=== PATIENT | female | born 1935 | race Caucasian/White ===

== ENCOUNTER 2016-10-14 13:24 | Emergency (ER) | payer OTHER ==
[2016-10-14 13:45] VITALS: BP 175/59; PULSE 79; TEMP 97.9; BMI 24.2
[2016-10-14] MEDS ORDERED: DIPHTH,PERTUSS(ACELL),TET 0.5 ML DISP.SYRIN IM ONE (13:45)
--- NOTE | 2016-10-14 14:16 | PDOC ---
History of Present Illness - General History Source: Patient Exam Limitations: No Limitations - History of Present Illness Initial Comments: 10/14/16 14:30 The patient is a 81 year old female, with a significant past medical history of osteoarthritis, asthma, who presents to the emergency department with a syncopal episode. Patient reports having an episode of diarrhea and after standing up, had a syncopal episode. Patient reports does not remembering this episode. She denies any dizziness and lightheadedness before or after the episode. She reports as a result having an abrasion on her forehead above her right eyebrow. She denies any complaints of pain. She denies fever, chills, headache and dizziness. She denies nausea, vomit, and constipation. She denies dysuria, frequency, urgency and hematuria. Not up-to-date on tetanus shot. Allergies: As per nursing notes. Social history: Nonsmoker. PCP: <Sidney Toscano - Last Filed: 10/14/16 14:30> <Aisha Sotelo - Last Filed: 10/14/16 16:16> - General History Source: Patient Exam Limitations: No Limitations <Janel Gee - Last Filed: 10/15/16 16:36> - General Chief Complaint: Syncope/Near Syncope Stated Complaint: FALL Time Seen by Provider: 10/14/16 13:44 Past History <Sidney Toscano - Last Filed: 10/14/16 14:30> <Aisha Sotelo - Last Filed: 10/14/16 16:16> - Past Medical History Other medical history: arthritis - Psycho/Social/Smoking Cessation Hx Suicidal Ideation: No Smoking History: Never smoked <Janel Gee - Last Filed: 10/15/16 16:36> - Past Medical History Allergies/Adverse Reactions: Allergies Allergy/AdvReac Type Severity Reaction Status Date / Time aspirin Allergy Severe Verified 10/14/16 13:45 ibuprofen [From Motrin] Allergy Severe Verified 10/14/16 13:45 Sulfa (Sulfonamide Allergy Severe Verified 10/14/16 14:21 Antibiotics) Home Medications: Ambulatory Orders Albuterol Sulfate [Proair Respiclick] 90 mcg IH ASDIR 10/14/16 Alprazolam [Xanax Xr] 0.5 mg PO BID 10/14/16 Buspirone HCl [Buspar -] 7.5 mg PO BID 10/14/16 Irbesartan 150 mg PO DAILY 10/14/16 Lidocaine 5% Patch [Lidoderm Patch -] 1 patch TP DAILY 10/14/16 Theophylline Anhydrous [Ryder-24] 300 mg PO DAILY 10/14/16 Review of Systems - Review of Systems Able to Perform ROS?: Yes Comments:: 10/14/16 14:20 GENERAL/CONSTITUTIONAL: No: fever, chills, weakness, loss of appetite. HEAD, EYES, EARS, NOSE AND THROAT: No: change in vision, ear pain, discharge, sore throat, throat swelling. CARDIOVASCULAR: No: chest pain, lightheadedness, palpitations, syncope RESPIRATORY: No: cough, shortness of breath, wheezing, hemoptysis, stridor. GASTROINTESTINAL: No: nausea, vomiting, abdominal cramping, rectal bleeding, constipation. GENITOURINARY: No: dysuria, hematuria, frequency, urgency, flank pain. MUSCULOSKELETAL: No: back pain, neck pain, joint pain, muscle swelling or pain SKIN : No: lesions, pallor, rash or easy bruising. NEUROLOGIC: Yes: syncope. No: headache, vertigo, paresthesias, weakness ENDOCRINE: No: unexplained weight gain or loss HEMATOLOGIC/LYMPHATIC: No: anemia, easy bleeding, swelling nodes. <Sidney Toscano - Last Filed: 10/14/16 14:30> *Physical Exam - Vital Signs Last Vital Signs Temp Pulse Resp BP Pulse Ox 97.9 F 79 18 175/59 100 10/14/16 13:41 10/14/16 13:41 10/14/16 13:41 10/14/16 13:41 10/14/16 14:14 - Physical Exam Comments: 10/14/16 14:30 GENERAL: The patient is in no acute distress. HEAD: 2.5cm laceration on her right eyelid. Bruising and hematoma beneath her right eye. EYES: PERRLA, EOMI, sclera anicteric, conjunctiva clear. ENT: Ears normal, nares patent, oropharynx clear without exudates. Moist mucous membranes. NECK: Normal range of motion, supple without lymphadenopathy, JVD, or masses. LUNGS: Breath sounds equal, clear to auscultation bilaterally. No wheezes, and no crackles. HEART: Regular rate and rhythm, normal S1 and S2 without murmur, rub or gallop. ABDOMEN: Soft, nontender, normoactive bowel sounds. No guarding, no rebound. No masses palpable. EXTREMITIES: LEFT knee pain. Normal range of motion, no edema. No clubbing or cyanosis. No erythema. NEUROLOGICAL: Cranial nerves II through XII grossly intact. Normal speech. No focal neurological deficits. MUSCULOSKELETAL: Back non-tender to palpation, no CVA tenderness SKIN: Warm, Dry, normal turgor, no rashes or lesions noted. <Sidney Toscano - Last Filed: 10/14/16 14:30> - Vital Signs Last Vital Signs Temp Pulse Resp BP Pulse Ox 97.9 F 79 18 175/59 100 10/14/16 13:41 10/14/16 13:41 10/14/16 13:41 10/14/16 13:41 10/14/16 14:14 <Aisha Sotelo - Last Filed: 10/14/16 16:16> - Vital Signs Last Vital Signs Temp Pulse Resp BP Pulse Ox 97.9 F 79 18 175/59 99 10/14/16 13:41 10/14/16 13:41 10/14/16 13:41 10/14/16 13:41 10/14/16 13:41 <Janel Gee - Last Filed: 10/15/16 16:36> Heart Score/ECG Review #1 ECG reviewed & interpreted by me at: 14:10 10/14/16 14:10 Twelve-lead EKG was performed and reviewed by me. There is normal sinus rhythm with a normal rate of 71bpm. The axis is normal. The intervals are normal - pr: 80bpm, QRS:88ms, QTc:423ms. There are no ST or T wave abnormalities. (+) PVC <aJnel Gee - Last Filed: 10/15/16 16:36> ED Treatment Course - LABORATORY CBC & Chemistry Diagram: 10/14/16 13:45 10/14/16 13:45 <Sidney Toscano - Last Filed: 10/14/16 14:30> - LABORATORY CBC & Chemistry Diagram: 10/14/16 13:45 10/14/16 13:45 - ADDITIONAL ORDERS Additional order review: Laboratory Results 10/14/16 10/14/16 10/14/16 13:45 13:45 13:45 INR 1.04 PTT (Actin FS) 30.5 Sodium 142 Potassium 3.5 Chloride 102 Carbon Dioxide 30 Anion Gap 10 BUN 15 Creatinine 0.6 Creat Clearance w eGFR > 60 Random Glucose 128 H Calcium 8.5 Magnesium 1.6 L Total Bilirubin 0.3 AST 11 L ALT 11 L Alkaline Phosphatase 81 Creatine Kinase 80 Troponin I < 0.02 Total Protein 6.4 Albumin 3.4 Blood Type O POSITIVE Antibody Screen Negative 10/14/16 13:45 RBC 4.03 MCV 90.0 MCHC 33.4 RDW 14.3 MPV 8.0 Neutrophils % 83.9 H Lymphocytes % 9.6 Monocytes % 4.9 Eosinophils % 1.1 Basophils % 0.5 - Medications Given in the ED: ED Medications Discontinued Medications Generic Name Dose Route Start Last Admin Trade Name Freq PRN Reason Stop Dose Admin Diphtheria/Tetanus/Acell Pertussis 0.5 ml 10/14/16 13:45 10/14/16 14:22 Boostrix - IM 10/14/16 13:46 0.5 ml .ONCE ONE Administration <Aisha Sotelo - Last Filed: 10/14/16 16:16> - LABORATORY CBC & Chemistry Diagram: 10/14/16 13:45 10/14/16 13:45 - RADIOLOGY Radiology Studies Ordered: Category Date Time Status HEAD CT WITHOUT CONTRAST [CT] Stat CT Scan 10/14/16 13:45 Ordered CHEST X-RAY PORTABLE* [RAD] Stat Radiology 10/14/16 13:45 Ordered <Janel Gee - Last Filed: 10/15/16 16:36> Medical Decision Making - Medical Decision Making 10/14/16 16:17 LACERATION REPAIR: Procedure was done under sterile procedure. The skin was prepped with Betadine and Saline. 2 cc of 2% lidocaine with sodium bicarbonate was injected subcutaneously for local anesthesia. Normal saline lavage was performed. Wound was thoroughly explored. Clean laceration. 5-0 Ethilon, simple interrupted sutures, x 2 were placed. Bacitracin and dry sterile dressing were applied. Patient was advised regarding signs and symptoms of infection that would indicate a need to see the doctor immediately, as well as instructions for suture removal. Procedure was done by Aisha Sotelo PA-C <Aisha Sotelo - Last Filed: 10/14/16 16:16> - Medical Decision Making This is an 81 yo F presenting to the ER s/p syncopal event The pt states that she had loose stools Stood up and got lightheaded and fell down She struck the right side of her face No LOC No amnesia Pt denies focal weakness and numbness 10/14/16 15:55 Laboratory Tests 10/14/16 10/14/16 13:45 13:45 WBC 7.9 Hgb 12.1 Hct 36.3 Plt Count 178 Neutrophils % 83.9 H Lymphocytes % 9.6 BUN 15 Creatinine 0.6 Random Glucose 128 H Creatine Kinase 80 Troponin I < 0.02 10/14/16 18:04 CT demonstrates: Right orbital floor, Right maxillary antrum fracture 10/14/16 18:[address] Fox at [facility]. He states patient should follow-up at the [facility] on Monday. He's requesting that she used his name of that he will be alerted. Will give patient a copy of her CT. Pt seen in the ER PMD Pt is refusing to stay for further evaluation of why she passed out Pt is very anxious even about waiting in the ER for evaluation Pt understands her injuries, given a copy of her results Clinical impression: Syncope, facial trauma, <Janel Gee - Last Filed: 10/15/16 16:36> *DC/Admit/Observation/Transfer - Attestations Scribe Attestion: 10/14/16 14:24 Documentation prepared by Sidney Toscano, acting as hospital medical biller for Janel Gee MD. <Sidney Toscano - Last Filed: 10/14/16 14:30> <Aisha Sotelo - Last Filed: 10/14/16 16:16> - Discharge Dispostion Admit: No <Janel Gee - Last Filed: 10/15/16 16:36> Diagnosis at time of Disposition: Syncope and collapse Fall Qualifiers: Encounter type: initial encounter Qualified Code(s): W19.XXXA - Unspecified fall, initial encounter Facial trauma Qualifiers: Encounter type: initial encounter Qualified Code(s): S09.93XA - Unspecified injury of face, initial encounter Orbital floor fracture Qualifiers: Encounter type: initial encounter - Discharge Dispostion Disposition: HOME Condition at time of disposition: Improved - Referrals Referrals: Pato Islas MD [Primary Care Provider] - - Patient Instructions Printed Discharge Instructions: DI for Closed Head Injury, DI for Syncope in Adults (Fainting), DI for Orbital Fracture Additional Instructions: Susan Thank you for coming in to the ER today You have sustained several facial fractures I spoke with Dr Gael Martinez You can see him at the [facility] on Tuesday 10/17 Please return to the ER for any other concerns or complaints Addendum entered and electronically signed by Janel Gee MD 10/15/16 16:38 : Progress Note - Progress Note Progress Note: Of note, pt has refused tetanus shot and po abx on discharge due to prior severe allergic reaction to Ibuprofen and her concern about anaphylaxis
[2016-10-14 14:19] LABS: BASOPHIL 0.5 % (0-2.0); EOSINOPHIL 1.1 % (0-4.5); MCH 30.1 pg (25.7-33.7); MCHC 33.4 g/dl (32.0-36.0); NEUTROPHILS 83.9 % (42.8-82.8); PLATELET COUNT 178 K/MM3 (134-434); RDW 14.3 % (11.6-15.6); WHITE BLOOD COUNT 7.9 K/mm3 (4.0-10.0)
[2016-10-14 14:32] LABS: INR 1.04 (0.82-1.09); PROTHROMBIN TIME (PATIENT) 11.4 SEC (9.98-11.88)
[2016-10-14 14:34] LABS: ACTIVATED PTT 30.5 SECONDS (26.9-34.4)
[2016-10-14 14:47] LABS: ALBUMIN 3.4 g/dl (3.4-5.0); ANION GAP 10 (8-16); BILIRUBIN,TOTAL 0.3 mg/dL (0.2-1.0); CALCIUM 8.5 mg/dL (8.5-10.1); CO2 30 mmol/L (21-32); CREATININE 0.6 mg/dL (0.55-1.02); GLUCOSE,RANDOM 128 mg/dL (74-106); MAGNESIUM 1.6 mg/dL (1.8-2.4); SGOT/AST 11 U/L (15-37); SGPT/ALT 11 U/L (12-78); TOT PROT 6.4 g/dl (6.4-8.2)
[2016-10-14 14:49] LABS: ALK PHOS 81 U/L (45-117); TROPONIN I < 0.02 ng/ml (0.00-0.05)
--- NOTE | 2016-10-14 15:44 | EKG ---
Test Reason : Blood Pressure : / mmHG Vent. Rate : 071 BPM Atrial Rate : 071 BPM P-R Int : 182 ms QRS Dur : 088 ms QT Int : 390 ms P-R-T Axes : 074 050 053 degrees QTc Int : 423 ms POOR DATA QUALITY, INTERPRETATION MAY BE ADVERSELY AFFECTED SINUS RHYTHM Confirmed by COLLEEN GUERRERO MD ([id number]) on 10/14/2016 3:44:03 PM Referred By: Confirmed By:COLLEEN GUERRERO MD
[2016-10-14] MEDS ORDERED: ALPRAZolam 0.25 MG TABLET PO ONE (17:24)
[2016-10-14] MEDS ORDERED: ALPRAZolam 0.25 MG TABLET ONE (17:37)
== END 2016-10-14 19:08 | disposition home or self-care (01) ==
LOC: JER 13:24
PROC: 0HQ1XZZ Repair Face Skin, External Approach (ICD-10-PCS; principal; 2016-10-14)
PROC: 3E0234Z Introduction of Serum, Toxoid and Vaccine into Muscle, Percutaneous Approach (ICD-10-PCS; 2016-10-14)
DX: R55 Syncope and collapse (principal); S09.93XA Unspecified injury of face, initial encounter; X58.XXXA Exposure to other specified factors, initial encounter; Y93.89 Activity, other specified; Y92.89 Other specified places as the place of occurrence of the external cause; J45.909 Unspecified asthma, uncomplicated; M19.90 Unspecified osteoarthritis, unspecified site
CPT/HCPCS: 12011-25; 36415; 70450-TC; 70480-TC; 71010-TC; 80053; 82550; 83735; 84484; 85025; 85610; 85730; 86850; 86900; 86901; 90471; 90715; 93005; 93010; 99283-25

== ENCOUNTER 2018-08-20 01:54 | Inpatient (IN) | payer OTHER ==
[2018-08-20 03:18] LABS: HEMATOCRIT 36.7 % (32.4-45.2); HEMOGLOBIN 12.9 GM/dL (10.7-15.3); MCH 29.7 pg (25.7-33.7); MCHC 35.2 g/dl (32.0-36.0); MEAN CELL VOLUME 84.3 fl (80-96); MEAN PLT VOLUME 8.7 fl (7.5-11.1); PLATELET COUNT 225 K/MM3 (134-434); RBC 4.35 M/mm3 (3.60-5.2); RDW 14.4 % (11.6-15.6); WHITE BLOOD COUNT 6.2 K/mm3 (4.0-10.0)
[2018-08-20] MEDS ORDERED: ACETAMINOPHEN 1000 MG/100 ML VIAL (NON FORMULARY) IVPB ONE ×2 (03:24→18:15)
--- NOTE | 2018-08-20 03:24 | PDOC ---
History of Present Illness - General Chief Complaint: Urinary Problem Stated Complaint: GENERALIZED PAIN History Source: Patient, Family Exam Limitations: No Limitations - History of Present Illness Initial Comments: 08/20/18 03:10 Patient is 83 year old female with h/o asthma, anxiety, arthritis, htn c/o generalized pain. Patient states she has been having pain for a long time coleman in the right shoulder. States has been using lidoderm patches for the pain but now not giving any relief. States Dr. Calabrese is her doctor but has not seen him in > 1.5 years when she felt a lump in her left breast. States she did not invite him back for a home visit because she thought that "the breast cancer would kill her, but she is still here". Also c/o foul smell to her urine and burning on urination. She has not eaten in 2 days. Denies fever, chills. Family states she never mentioned the mass to them, her only c/o was of pain. PMD: Dr. Calabrese PMHX: as above PSOCHX: lives with family ALL: ASA, motrin, sulfa GENERAL/CONSTITUTIONAL: [No fever or chills. (+() weakness. No weight change.] HEAD, EYES, EARS, NOSE AND THROAT: [No change in vision. No ear pain or discharge. No sore throat.] CARDIOVASCULAR: [No chest pain or shortness of breath.] RESPIRATORY: (+) cough, wheezing, or hemoptysis.] GASTROINTESTINAL: [No nausea, vomiting, diarrhea or constipation. No rectal bleeding.] GENITOURINARY: [No dysuria, frequency, or change in urination.] MUSCULOSKELETAL: (+) joint or muscle swelling or pain. (+) neck or back pain.] SKIN AND BREASTS: (+) rash or easy bruising.] NEUROLOGIC: [No headache, vertigo, loss of consciousness, or loss of sensation.] PSYCHIATRIC: (+) depression or anxiety.] ENDOCRINE: [No increased thirst. No abnormal weight change.] HEMATOLOGIC/LYMPHATIC: [No anemia, easy bleeding, or history of blood clots.] ALLERGIC/IMMUNOLOGIC: [No hives or skin allergy. No latex allergy.] GENERAL: [The patient is awake, alert, and fully oriented, in moderate distress. ] HEAD: [Normal with no signs of trauma.] EYES: [Pupils equal, round and reactive to light, extraocular movements intact, sclera anicteric, conjunctiva clear.] ENT: [Ears normal, nares patent, oropharynx clear without exudates. Moist mucous membranes.] NECK: [Normal range of motion, supple without lymphadenopathy, JVD, or masses.] LUNGS: [Breath sounds equal, clear to auscultation bilaterally. No wheezes, and no crackles.] HEART: [Regular rate and rhythm, normal S1 and S2 without murmur, rub.] ABDOMEN: [Soft, nontender, normoactive bowel sounds. No guarding, no rebound. No masses.] EXTREMITIES: decreased range of motion, generalized tenderness, no edema. No clubbing or cyanosis. No cords, erythema, (+) generalized tenderness.] NEUROLOGICAL: [Cranial nerves II through XII grossly intact. Normal speech, normal gait.] PSYCH: somber mood, crying during the evaluation, sad affect.] SKIN: [Warm, Dry, poor turgor, dry scaly rash on elbows, (+) mass to the left breast, nipple retraction and wrinkling, tenderness to palp Past History - Past Medical History Allergies/Adverse Reactions: Allergies Allergy/AdvReac Type Severity Reaction Status Date / Time aspirin Allergy Severe Verified 08/20/18 01:57 ibuprofen [From Motrin] Allergy Severe Verified 08/20/18 01:57 Sulfa (Sulfonamide Allergy Severe Verified 08/20/18 01:57 Antibiotics) Home Medications: Ambulatory Orders Albuterol Sulfate [Proair Respiclick] 90 mcg IH ASDIR 10/14/16 Alprazolam [Xanax Xr] 0.5 mg PO BID 10/14/16 Buspirone HCl [Buspar -] 7.5 mg PO BID 10/14/16 Irbesartan 150 mg PO DAILY 10/14/16 Lidocaine 5% Patch [Lidoderm Patch -] 1 patch TP DAILY 10/14/16 Theophylline Anhydrous [Ryder-24] 300 mg PO DAILY 10/14/16 - Suicide/Smoking/Psychosocial Hx Smoking History: Never smoked Have you smoked in the past 12 months: No Information on smoking cessation initiated: No Hx Alcohol Use: No Drug/Substance Use Hx: No *Physical Exam - Vital Signs Last Vital Signs Temp Pulse Resp BP Pulse Ox 97.8 F 102 H 18 154/80 97 08/20/18 02:00 08/20/18 02:00 08/20/18 02:00 08/20/18 02:00 08/20/18 02:00 Moderate Sedation - Procedure Monitoring Vital Signs: Procedure Monitoring Vital Signs Temperature 97.8 F 08/20/18 02:00 Pulse Rate 102 H 08/20/18 02:00 Respiratory Rate 18 08/20/18 02:00 Blood Pressure 154/80 08/20/18 02:00 O2 Sat by Pulse Oximetry (%) 97 08/20/18 02:00 ED Treatment Course - LABORATORY CBC & Chemistry Diagram: 08/20/18 03:03 08/20/18 03:03 - RADIOLOGY Radiology Studies Ordered: Category Date Time Status CHEST X-RAY PORTABLE* [RAD] Stat Radiology 08/20/18 02:25 Ordered RIBS-LEFT SIDE [RAD] Stat Radiology 08/20/18 02:26 Ordered SHOULDER-RIGHT [RAD] Stat Radiology 08/20/18 02:25 Ordered Medical Decision Making - Medical Decision Making 08/20/18 03:10 Patient is 83 year old female with h/o asthma, anxiety, arthritis, htn c/o generalized pain. Noted on exam left breast mass suspicious for CA possible with bone involvement. Pain on urination r/o uti labs, cxr, left ribs and right shoulder. pain meds. reassess 08/20/18 03:44 EKG A-Fib with RVR 114, with PAC, NAD this seem to be a new diagnoses ASA not given allergic 08/20/18 05:17 no acute finding on lab work case was d/w Dr. Luciano covering for Dr. Pato Islas. Recommend admit, consult surgery Dr. Smyth. *DC/Admit/Observation/Transfer Diagnosis at time of Disposition: New onset atrial fibrillation, Breast mass, Bone pain - Discharge Dispostion Condition at time of disposition: Stable Decision to Admit order: Yes - Referrals - Patient Instructions - Post Discharge Activity
[2018-08-20] MEDS ORDERED: ACETAMINOPHEN INJECTION 100 ML IVPB ONE (03:26)
[2018-08-20 03:32] LABS: INR 1.1 (0.83-1.09)
[2018-08-20 03:34] LABS: URINE APPEARANCE CLEAR; URINE BILIRUBIN NEGATIVE (<2.0 mg/dL); URINE COLOR LTYELLOW; URINE GLUCOSE (UA) NEGATIVE (NEGATIVE); URINE KETONE TRACE (NEGATIVE); URINE LEUK ESTERASE TRACE (NEGATIVE); URINE NITRITE NEGATIVE (NEGATIVE); URINE PROTEIN NEGATIVE (NEGATIVE); URINE UROBILINOGEN NEGATIVE mg/dL (0.2-1.0)
[2018-08-20 03:46] LABS: EPI CELLS RARE /HPF (FEW); URINE MUCUS RARE
[2018-08-20 03:53] LABS: ALBUMIN 3.5 g/dl (3.4-5.0); ALK PHOS 88 U/L (45-117); ANION GAP 8 MMOL/L (8-16); BILIRUBIN,TOTAL 0.7 mg/dL (0.2-1); BLOOD UREA NITROGEN 11 mg/dL (7-18); CALCIUM 8.5 mg/dL (8.5-10.1); CHLORIDE 103 mmol/L (98-107); CO2 26 mmol/L (21-32); CREATININE 0.5 mg/dL (0.55-1.3); GLUCOSE,RANDOM 124 mg/dL (74-106); POTASSIUM 4.6 mmol/L (3.5-5.1); SGOT/AST 29 U/L (15-37); SGPT/ALT 12 U/L (13-61); SODIUM 136 mmol/L (136-145); TOT PROT 7.2 g/dl (6.4-8.2)
--- NOTE | 2018-08-20 05:37 | PDOC ---
*Physical Exam - Vital Signs Last Vital Signs Temp Pulse Resp BP Pulse Ox 97.8 F 102 H 18 154/80 97 08/20/18 02:00 08/20/18 02:00 08/20/18 02:00 08/20/18 02:00 08/20/18 02:00 - Physical Exam Comments: 08/20/18 05:36 on exam awake alert dry mucous membranes. lungs clear bilaterally heart rrr no mrg. abd soft nd nt. ext wwp no edema. no calf tenderness. left breast with palp hard mass medial to areola, nipple inverted, scaling. deformed. ED Treatment Course - LABORATORY CBC & Chemistry Diagram: 08/20/18 03:03 08/20/18 03:03 - ADDITIONAL ORDERS Additional order review: Laboratory Results 08/20/18 08/20/18 08/20/18 03:22 03:03 03:03 PT with INR INR Sodium Potassium Chloride Carbon Dioxide Anion Gap BUN Creatinine Creat Clearance w eGFR Random Glucose Calcium Total Bilirubin AST ALT Alkaline Phosphatase Creatine Kinase 123 Troponin I < 0.02 Total Protein Albumin Urine Color Ltyellow Urine Appearance Clear Urine pH 6.0 Ur Specific [place] 1.010 Urine Protein Negative Urine Glucose (UA) Negative Urine Ketones Trace H Urine Blood 1+ H Urine Nitrite Negative Urine Bilirubin Negative Urine Urobilinogen Negative Ur Leukocyte Esterase Trace Urine WBC (Auto) 10 Urine RBC (Auto) 2 Ur Epithelial Cells Rare Urine Mucus Rare Blood Type Cancelled Antibody Screen Cancelled 08/20/18 08/20/18 03:03 03:03 PT with INR 13.00 INR 1.10 H Sodium 136 Potassium 4.6 Chloride 103 Carbon Dioxide 26 Anion Gap 8 BUN 11 Creatinine 0.5 L Creat Clearance w eGFR > 60 Random Glucose 124 H Calcium 8.5 Total Bilirubin 0.7 AST 29 ALT 12 L Alkaline Phosphatase 88 Creatine Kinase Troponin I Total Protein 7.2 Albumin 3.5 Urine Color Urine Appearance Urine pH Ur Specific [place] Urine Protein Urine Glucose (UA) Urine Ketones Urine Blood Urine Nitrite Urine Bilirubin Urine Urobilinogen Ur Leukocyte Esterase Urine WBC (Auto) Urine RBC (Auto) Ur Epithelial Cells Urine Mucus Blood Type Antibody Screen 08/20/18 03:03 RBC 4.35 MCV 84.3 MCHC 35.2 RDW 14.4 MPV 8.7 - Medications Given in the ED: ED Medications Discontinued Medications Generic Name Dose Route Start Last Admin Trade Name Freq PRN Reason Stop Dose Admin Acetaminophen 1,000 mg 08/20/18 03:24 08/20/18 03:29 Ofirmev Injection - IVPB 08/20/18 03:25 1,000 mg ONCE ONE Administration Medical Decision Making - Medical Decision Making 08/20/18 05:33 83 yo F h/o arthritis, htn anxiety here with c/o generalized bony pain. pt states she has had a left breast mass for one year which she did not tell anyone about. figured it was cancer and she would from it quickly so didn't tell anyone. tonight states he bony pain was so severe she couldn't get up. has pain in shoulders right greater than left, hips and legs. has n't had much appetitie for the last few days. no vomiting. no f/c no abd pain. left breast has been deformed. on exam awake alert dry mucous membranes. lungs clear bilaterally heart rrr no mrg. abd soft nd nt. ext wwp no edema. no calf tenderness. left breast with palp hard mass medial to areola, nipple inverted, scaling. deformed. differential breast ca, dehydration renal failure infection such as uti or pna, fracture. plan xray chest shoulder , pt will likley require pain medication admission for pain control work up of cancer. 08/30/18 09:54 pt seen in conjunction with EDWARD Marquez, agree with assessment and plan. *DC/Admit/Observation/Transfer Diagnosis at time of Disposition: New onset atrial fibrillation, Breast mass, Bone pain - Discharge Dispostion Disposition: HOME Condition at time of disposition: Stable - Referrals - Patient Instructions - Post Discharge Activity
[2018-08-20] MEDS ORDERED: FLU VACCINE QUAD 60 MCG/0.5 ML (MDV 18-19) IM ONE (08:40)
[2018-08-20] MEDS ORDERED: oxyCODONE HCL 5 MG TABLET PO PRN (09:37)
--- NOTE | 2018-08-20 13:05 | CONS ---
DATE OF CONSULTATION: 08/20/2018 REQUESTING PHYSICIAN: Pato Islas MD CARDIOLOGY CONSULTATION CHIEF COMPLAINT: 1. Severe right shoulder and l left lower extremity pain. 2. Atrial fibrillation. HISTORY OF PRESENT ILLNESS: The patient is an 83-year-old female with a longstanding history of bronchial asthma (childhood), history of hypertension, anxiety disorder and depression, history of intentional tremors involving both hands since childhood, and a history of osteoarthritis. The patient has been complaining of progressive and severe pain involving the right shoulder and also the left thigh, knee and calves starting about 1 to 2 months ago and states that she could not stand up for the past 2 days because of severe pain. The right shoulder is also extremely painful and the pain has at times caused nausea. There is no history of chest pain or discomfort either at rest or with exertion , no history of exertional dyspnea, paroxysmal nocturnal dyspnea or orthopnea reported. No history of palpitations, light-headedness, dizziness, presyncope or syncope. No history of diabetes mellitus, no history of heart murmur. PAST MEDICAL HISTORY: As mentioned in the history of present illness. History of chronic loose bowel movements since childhood. PAST SURGICAL HISTORY: History of stitches involving the right eyebrow. SOCIAL HISTORY: She is not . She has 2 sons. She stopped smoking at the age of 51, smoked from the age of 17 and smoked 1 pack of cigarettes per week. She has a social drink; denies excessive use of alcohol. FAMILY HISTORY: Father of tuberculosis in his 40s. Mother suddenly in her late 60s, she was asthmatic. She has 3 brothers and 3 sisters. Older brother committed suicide in his 40s, had depression. Second brother of ? carcinoma of the stomach at age 65. The third brother of carcinoma site uncertain in his mid to late 70s. Her older sister is alive and is 97 years of age and resides in a penitentiary facility. She has a younger sister who is 75 and she is estranged and does not know much about her health. A third sister of carcinoma, site uncertain in her early 70s. ALLERGIES: The patient had anaphylactic shock related to MOTRIN. She is allergic to SULFA, which causes a rash. CURRENT MEDICATIONS: Oxycodone 5 mg every 4 hours p.r.n. for pain. Prior to admission she was on the following medications: 1. Theophylline 300 mg p.o. daily. 2. Xanax 1 mg 1/2 tablet p.o. b.i.d. 3. BuSpar, dose is uncertain 1 p.o. daily. 4. Irbesartin, dose is uncertain 1 p.o. daily but states that she had reduced the dose against medical advice. 5. Lidocaine patch 12 hours on and 12 hours off. 6. ProAir 2 inhalations q.i.d. p.r.n. 7. Albuterol via nebulizer p.r.n. REVIEW OF SYSTEMS: Constitutional: History of chills, fever and night sweats. History of unintentional weight loss. HEENT: No history of headaches, diplopia or blurred vision. History of nasal polyps. No history of tinnitus or deafness. Cardiovascular: See history of present illness. Respiratory: No history of recent cough, expectoration or hemoptysis. No history of tuberculosis. See history of present illness. Gastrointestinal: Occasional nausea especially when she is hungry. No history of vomiting, melena or hematemesis. Occasional generalized abdominal pain, chronic loose bowel movements. History of decreased appetite. No history of early satiety reported. Neurologic: History of chronic intentional tremors involving both hands. No history of focal weakness. No history of seizures or syncope. No history of light-headedness or dizziness. Musculoskeletal: History of osteoarthritis, see history of present illness. Endocrine: No history of polyuria or polydipsia, no history of intolerance to cold or warmth weather. No known history of endocrine disorder. Hematologic: No history of anemia, ecchymosis or bleeding. Miscellaneous: The patient stated that she has had a left breast mass for the past 1-1/2 to 2 years and apparently has not mentioned it to anybody. PHYSICAL EXAMINATION: General: An 83-year-old female was in moderate distress due to pain involving the right shoulder and leg. There was no pallor, cyanosis, clubbing or jaundice. Vital Signs: Weight 165 pounds, blood pressure 134/69 mmHg, pulse 90 beats per minute and irregularly irregular, respirations 22 per minute, temperature 98.7 F , oxygen saturations were 94% on room air. Neck: Supple, no jugulovenous distension, carotids were 2+, upstrokes were normal, no bruits were heard and no thyromegaly was present. Heart: No heaves or thrills. PMI was in the 5th intercostal space, S1 was variable, S2 was normal, rate 1/6 a crescendo systolic murmur was heard at the apex, no diastolic murmur, rubs or gallops were heard. Lungs: Decreased breath sounds at the right base. Abdomen: Soft, scaphoid, no hepatosplenomegaly or palpable masses were felt. Bowel tones were present. No bruits were heard. Extremities: No calf tenderness or dependent edema. Jose sign was negative. There were deformities of the toes on both feet. Dorsalis pedis pulses were 2+, posterior tibial pulses were not palpable. Femoral pulses were 2+. LABORATORY DATA: WBC count 6200, hemoglobin 12.9 g/dL, platelet count 225,000. Sodium 136, potassium 4.6, chloride 103, CO2 mmol/L, BUN 11, creatinine 0.5 mg/ dL. Random glucose 125 mg/dL, calcium 8.5. Liver function tests were normal. CK 123, troponin less than 0.02. Total protime 7.2 g/dL. Albumin 3.5. X-ray of the chest: A single AP view of the chest reveals degenerative spine and shoulder changes appear clear, hyperaerated lungs, large heart, normal aorta and normal hilum. The angles are sharp and the soft tissues are intact. An acute process is not seen. Since October 14, 2016 there is no change of an adverse nature. ECG on August 15, 2018: Atrial fibrillation with rapid ventricular response, right axis deviation, occasional unifocal and single ventricular premature beats. Nonspecific ST and T-wave abnormalities. No previous ECGs available for comparison. IMPRESSION: 1. Atrial fibrillation with moderate to rapid ventricular response of indeterminate duration. 2. History of hypertension, currently normotensive. 3. Ventricular ectopic beats. 4. History of bronchial asthma currently in remission. 5. Pain involving right shoulder left lower extremity, etiology most probably related to arthritic pain. The possibility of metastatic disease needs to be excluded. 6. Left breast mass. 7. History of nasal polyps. 8. History of anxiety disorder/depression. 9. 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 RECOMMENDATIONS: 1. The patient was advised that she has atrial fibrillation and ideally should be on anticoagulation. The risks of atrial fibrillation were discussed and understood. She refused to consider the use of anticoagulation until she has spoken to her family and PCP. 2. Echocardiogram. 3. Repeat T3, T4 TSH. 4. Oncological consult is pending. 5. Consider adding beta blockers for control of ventricular response and may also benefit her intentional tremors. 6. Would suggest the resumption of her outpatient medications. I thank you for your referral. MISTY WOODARD M.D. [id number]
--- NOTE | 2018-08-20 13:10 | CONSULT ---
Consult Consult Specialty:: Hematology/Oncology Referred by:: ED Reason for Consultation:: Left breast mass - History of Present Illness Chief Complaint: right shoulder pain History of Present Illness: 83 yr old man with asthma, HTN brought in by her son for severe right shoulder pain for past 2-3 days progressively worsening. Since May she has been proressivly been getting weaker and unable to care for herself, her son had to move in to help her cook and clean. She has not left her apartment in years, used to walk with a walker but has largerly remained in bed for past few months. noticed a left breast mass in Jul 2016 but did not bring it to the attention of her physician, Dr. Islas or her family. She had recently watched a friend pass away from breast cancer and did not want to go through something similar. She wanted to be left alone to . Dr. Islas had been visiting her at home but since Jul 2016 she declined to be visited by him and has not had any physician visits since then. currently she is unsure of what she wants regarding the left breast mass, she knows it is her decision. she said she's "too old to have to tolerate anything. " PMhx: asthma, HTN, no previous hx of cancer, had a colonoscopy >10yrs ago and recalls that it was fine. Used to get mammograms in the past which were all neg , as per pt. 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 3 sisters: Rach- alive with dementia age 97, no hx of cancer. Natalia - from unknown cancer, cancer was dx as older adult and Estephania-alive but estranged 3 brothers: Diomedes from mesothelioma, exposed at work, Florencio - from mesothelioma, exposed at work, Weston - age 30's due to suicide from PTSD fom WWII 2 adult sons, older son Florencio is estranged with 4 healthy children one grandson with autism. younger son lives with her, has HTN. Pt is close with her Niece. Pt denies smoking, ETOH, illicit drug use. - History Source History Provided By: Patient Limitations to Obtaining History: No Limitations - Past Medical History ...: No - Alcohol/Substance Use Hx Alcohol Use: No - Smoking History Smoking history: Never smoked Have you smoked in the past 12 months: No Home Medications - Allergies Allergies/Adverse Reactions: Allergies Allergy/AdvReac Type Severity Reaction Status Date / Time aspirin Allergy Severe Verified 08/20/18 01:57 ibuprofen [From Motrin] Allergy Severe Verified 08/20/18 01:57 Sulfa (Sulfonamide Allergy Severe Verified 08/20/18 01:57 Antibiotics) - Home Medications Home Medications: Ambulatory Orders Albuterol Sulfate [Proair Respiclick] 90 mcg IH ASDIR 10/14/16 Alprazolam [Xanax Xr] 0.5 mg PO BID 10/14/16 Buspirone HCl [Buspar -] 7.5 mg PO BID 10/14/16 Irbesartan 150 mg PO DAILY 10/14/16 Lidocaine 5% Patch [Lidoderm Patch -] 1 patch TP DAILY 10/14/16 Theophylline Anhydrous [Ryder-24] 300 mg PO DAILY 10/14/16 Review of Systems - Review of Systems Constitutional: reports: No Symptoms Eyes: reports: No Symptoms HENT: reports: No Symptoms Physical Exam Vital Signs: Vital Signs Temperature 98.7 F 08/20/18 08:19 Pulse Rate 112 H 08/20/18 08:19 Respiratory Rate 22 H 08/20/18 08:19 Blood Pressure 134/69 08/20/18 08:19 O2 Sat by Pulse Oximetry (%) 94 L 08/20/18 09:19 Constitutional: Yes: No Distress, Calm Eyes: Yes: Conjunctiva Clear, EOM Intact, PERRL HENT: Yes: Atraumatic, Normocephalic Neck: Yes: Supple, Trachea Midline. No: Thyromegaly Cardiovascular: Yes: Pulse Irregular, S1, S2 Respiratory: Yes: Regular, CTA Bilaterally Gastrointestinal: Yes: Normal Bowel Sounds, Soft Breast(s): Yes: Left (deformed with firm nontender nonmobile mass superior to inverted nipple without discharge. skin is intact but dry and flaky around areola.), Right (no palpable masses), Dimpling, Mass Musculoskeletal: Yes: Joint Stiffness, Muscle Pain (decreased ROM in right shoulder due to pain. tender to palpapation in upper right arm. no erythema, no swelling. left thigh and left hip tender to palpation and decr ROM in b/l hips. FROM in left shoulder.) Extremities: Yes: Other (right shoulder and upper arm pain with movement and palpation. left hip and left thigh pain with movement and palpation. decr ROM at both locations. no swelling or erythema) Edema: No Peripheral Pulses WNL: Yes Integumentary: Yes: WNL. No: Bruising, Erythema, Petechiae Neurological: Yes: Alert, Oriented Labs: CBC, BMP 08/20/18 03:03 08/20/18 03:03 Assessment/Plan 83 yr old woman with asthma and HTN admitted for right shoulder pain and left breast mass. Pt with decreased ADL's. She was animated when discussing her family, especially her grandchildren and tearful when the discussion turned to investigating the breast mass. She is unsure how she wants to proceed as she may not want to undergo any treatment regardless of the diagnosis. She is considering how she wants to proceed. Problem List: right should pain left breast mass with palpable left axillary node Afib Plan: neck and right humerus CT scan to r/o fracture recommend breast biopsy, Dr. Wilson consulted, pt said she would consent to biopsy. will discuss it with her son and Dr. Islas bone scan for further evaluation of malignancy pain control afib pending cardiology consult
--- NOTE | 2018-08-20 14:38 | HP ---
DATE OF ADMISSION: DATE OF DICTATION: 08/20/2018 This is an 83-year-old female known to have osteoarthritis of the hip better than for a few years. Lives at home with her son. Was brought to the emergency room yesterday with complaints of severe pain right shoulder. She also has severe pain left hip. Also noted to have a mass left breast. So, got admitted with a diagnosis of possible breast cancer with bone metastasis. This morning, patient is complaining to me severe pain, right shoulder, and left hip. PAST MEDICAL HISTORY: Thirty years ago, she had cardiorespiratory arrest and was intubated, known to have bronchial asthma on Proventil pump p.r.n. at home. PHYSICAL EXAMINATION: General: Patient is awake, alert, oriented, distressed because of the pain. Vital Signs: BP 130/80, pulse 102, respirations 20, temperature 98. HEENT: Unremarkable. Neck: Supple. No JVD. Lungs: Clear. Breasts: Left breast there is a mass around the nipple area more towards the left upper outer quadrant. Heart: Sounds S1, S2 normal. No S3, S4. Abdomen: Soft, nontender. Extremities: Range of motion of right shoulder and left hip restricted because of the pain. Neurological: Examination grossly normal. IMPRESSION: 1. Cachexia 2. Difficult to thrive. 3. Breast mass. 4. Osteoarthritis. PLAN: Pain medications. Oncology consult, Dr. Figueroa. May start for nutrition. We will follow. BRET HASSAN M.D. [id number]
--- NOTE | 2018-08-20 15:42 | EKG ---
Test Reason : Blood Pressure : / mmHG Vent. Rate : 114 BPM Atrial Rate : 136 BPM P-R Int : 000 ms QRS Dur : 090 ms QT Int : 284 ms P-R-T Axes : 000 070 067 degrees QTc Int : 391 ms ATRIAL FIBRILLATION WITH RAPID VENTRICULAR RESPONSE WITH PREMATURE VENTRICULAR OR ABERRANTLY CONDUCTED COMPLEXES NONSPECIFIC ST ABNORMALITY ABNORMAL ECG WHEN COMPARED WITH ECG OF 14-OCT-2016 13:47, ATRIAL FIBRILLATION HAS REPLACED SINUS RHYTHM VENT. RATE HAS INCREASED BY 43 BPM Confirmed by VÍCTOR HINDS MD ([id number]) on 08/20/2018 3:41:56 PM Referred By: Confirmed By:VÍCTOR HINDS MD
--- NOTE | 2018-08-20 18:44 | PN ---
Teaching Attending Note Name of Resident: Precious Barron ATTENDING PHYSICIAN STATEMENT I saw and evaluated the patient. I reviewed the resident's note and discussed the case with the resident. I agree with the resident's findings and plan as documented. ASSESSMENT AND PLAN: 83 y/o patient presenting with rt. shoulder, neck pain. Noted to have left breast mass since 2016. HAs not sought medical attention. concern for metastatic disease will consult dr. cornelius for biopsy check CT left shoulder/neck check bone scan disucssed [facility] patient that metastatic breast cancer is potentially tereatable with hormonal agents if ER+ and urged her to follow through with our recommendations
[2018-08-21] MEDS: ACETAMINOPHEN 500 MG TABLET (FP) PO PRN ×2 (04:31→22:01)
--- NOTE | 2018-08-21 09:25 | PN ---
Progress Note, Physician Chief Complaint: shoulder pain better History of Present Illness: Dr Smyths cardiology consult and bhavik Carroll oncology consult appreciated - Current Medication List Current Medications: Active Medications Acetaminophen (Tylenol -) 500 mg PO Q6H PRN PRN Reason: FEVER/PAIN LEVEL 1-5 Last Admin: 08/21/18 04:31 Dose: 500 mg Oxycodone HCl (Roxicodone -) 5 mg PO Q4H PRN PRN Reason: PAIN LEVEL 6-10 - Objective Vital Signs: Vital Signs Temperature 98.0 F 08/21/18 04:54 Pulse Rate 106 H 08/21/18 04:54 Respiratory Rate 20 08/21/18 04:54 Blood Pressure 151/87 08/21/18 04:54 O2 Sat by Pulse Oximetry (%) 95 08/20/18 21:00 Constitutional: Yes: Mild Distress Eyes: Yes: WNL HENT: Yes: WNL Neck: Yes: WNL Cardiovascular: Yes: Pulse Irregular Respiratory: Yes: Regular Gastrointestinal: Yes: Normal Bowel Sounds ...Rectal Exam: Yes: Deferred Genitourinary: Yes: WNL Edema: No Neurological: Yes: Alert Psychiatric: Yes: Alert Labs: CBC, BMP 08/20/18 03:03 08/20/18 03:03 INR, PTT INR 1.10 (0.83-1.09) H 08/20/18 03:03 Assessment/Plan Breast biopsy Ortho consult Dr Morales
[2018-08-21] MEDS ORDERED: PT OWN MED DRAWER 7, Y5N ONE (10:30)
[2018-08-21] MEDS: LOSARTAN POTASSIUM 50 MG TABLET (FP) PO SCH (10:36)
[2018-08-21] MEDS: busPIRone HCL 10 MG TABLET (FP) PO SCH ×2 (10:36→22:01)
[2018-08-21] MEDS: THEOPHYLLINE ANHYDROUS 200 MG CAP.ER.24H PO SCH (10:37)
[2018-08-21] MEDS: ALPRAZolam 0.25 MG TABLET PO SCH ×2 (10:40→22:01)
--- NOTE | 2018-08-21 16:53 | PN ---
Progress Note (short form) - Note Progress Note: Pt seen and examined. She is an 83 year old female with c/o B/L hip and shoulder pain. The hips have hurt for many years, left usually worse than left, and the shoulders have hurt for 1 year. Denies distant or recent trauma. Her right shoulder is very stiff, her left shoulder is doing well, with good ROM and minimal pain. Her hips hurt with weight bearing. She has recently been diagnosed with Breast CA, currently undergoing work up. PE Left shoulder looks good, with good ROM, NVI, no pain. Right shoulder has little active ROM, very limited FF and Abd, grossly NVI. + crepitus Right and left hip both with little active ROM, + pain with motion, B/L LE grossly NVI Xrays B/L hips show severe B/L OA, left hip also with severe protrusio CT Scan Report Pending ; Right shoulder with severe OA Bone scan Report Pending ; increased uptake at B/L Glenohumeral joints Imp 83 year F with no recent h/o trauma with recent dx of Breast CA and severe pain and limited function of both hips (L more than R), and right shoulder. So far no obvious foci of breast mets in the hips, bone scan possibly suggestive of mets in the proximal humeri. Rec Will follow up tomorrow for radiologist report of bone scan. Pt, at the moment, is adamantly refusing surgery of any kind. WBAT, ROM as tolerated
--- NOTE | 2018-08-21 18:33 | PN ---
Progress Note, Physician Chief Complaint: Feels better - Current Medication List Current Medications: Active Medications Acetaminophen (Tylenol -) 500 mg PO Q6H PRN PRN Reason: FEVER/PAIN LEVEL 1-5 Last Admin: 08/21/18 04:31 Dose: 500 mg Alprazolam (Xanax -) 0.5 mg PO BID [facility] Last Admin: 08/21/18 10:40 Dose: 0.5 mg Buspirone HCl (Buspar -) 10 mg PO BID [facility] Last Admin: 08/21/18 10:36 Dose: 10 mg Losartan Potassium (Cozaar -) 50 mg PO DAILY [facility] Last Admin: 08/21/18 10:36 Dose: 50 mg Oxycodone HCl (Roxicodone -) 5 mg PO Q4H PRN PRN Reason: PAIN LEVEL 6-10 Theophylline (Ryder-24) 200 mg PO DAILY [facility] Last Admin: 08/21/18 10:37 Dose: 200 mg - Objective Vital Signs: Vital Signs Temperature 98.7 F 08/21/18 08:54 Pulse Rate 106 H 08/21/18 08:54 Respiratory Rate 20 08/21/18 12:54 Blood Pressure 147/92 08/21/18 08:54 O2 Sat by Pulse Oximetry (%) 95 08/21/18 09:00 Constitutional: Yes: No Distress Eyes: Yes: WNL HENT: Yes: WNL Neck: Yes: WNL Cardiovascular: Yes: WNL Respiratory: Yes: WNL Gastrointestinal: Yes: WNL ...Rectal Exam: Yes: WNL, Deferred Genitourinary: Yes: WNL Breast(s): Yes: WNL Musculoskeletal: Yes: Joint Stiffness Edema: No Psychiatric: Yes: Alert Labs: CBC, BMP 08/20/18 03:03 08/20/18 03:03 INR, PTT INR 1.10 (0.83-1.09) H 08/20/18 03:03 - ....Imaging Chest X-ray: Report Reviewed X-ray: Report Reviewed Cat Scan: Report Reviewed Ultrasound: Report Reviewed Assessment/Plan Dr Orellana consult appreciated
--- NOTE | 2018-08-21 18:47 | PN ---
Progress Note (short form) - Note Progress Note: 83 year old female admitted with h/o shoulder and hip pain found to have a left breast mass and atrial fib. with controlled ventricular response of indeterminate duration. Known case of hypertension, bronchial asthma, depression and anxiety disorder. No h/o of chest pain or discomfort, no SOB. Workup in progress regardng breast mass. Active Medications Acetaminophen (Tylenol -) 500 mg PO Q6H PRN PRN Reason: FEVER/PAIN LEVEL 1-5 Last Admin: 08/21/18 04:31 Dose: 500 mg Alprazolam (Xanax -) 0.5 mg PO BID [facility] Last Admin: 08/21/18 10:40 Dose: 0.5 mg Buspirone HCl (Buspar -) 10 mg PO BID [facility] Last Admin: 08/21/18 10:36 Dose: 10 mg Losartan Potassium (Cozaar -) 50 mg PO DAILY [facility] Last Admin: 08/21/18 10:36 Dose: 50 mg Oxycodone HCl (Roxicodone -) 5 mg PO Q4H PRN PRN Reason: PAIN LEVEL 6-10 Theophylline (Ryder-24) 200 mg PO DAILY [facility] Last Admin: 08/21/18 10:37 Dose: 200 mg Last Vital Signs Temp Pulse Resp BP Pulse Ox 98.7 F 106 irregular 20 147/92 95 08/21/18 08:54 08/21/18 08:54 08/21/18 12:54 08/21/18 08:54 08/21/18 09:00 NECK: supple, no JVD, carotids 2+. HEART: PMI in the 5th ICS, no heaves or thrills, S1 variable S2 normal, grade I/ systolic murmur, no gallops heard LUNGS: Clear on auscultation. ABDOMEN: Soft, nontender, no organomegaly or palpable mass. EXTREMITIES: No edema or calf tenderness. CBC, BMP 08/20/18 03:03 08/20/18 03:03 IMPRESSION: 1. Hypertension. 2. Atrial fibrillation with moderate to rapid response. 3. Left mass. 4. Depression and Anxiety disorder. 5. Bronchial disorder. RECOMMENDATIONS: 1. Anticoagulation, provided patient agrees to it and can be started on heparin till work up of breast is completed. 2. Echocardiogram.
--- NOTE | 2018-08-21 20:08 | PN ---
Progress Note (short form) - Note Progress Note: Consult Progress Note: Hematology-Oncology continues to complain of arm and hip pain. does not want to use oxycodone, only wants tylenol for pain. also c/o "warm urine." discussed obtaining biopsy with her sons and niece. denies chest pain, sob, cough, palpitations, diarrhea, fever, cough, abdominal pain. completed imaging studies today. Vital Signs Temperature 98.7 F 08/21/18 08:54 Pulse Rate 106 H 08/21/18 08:54 Respiratory Rate 20 08/21/18 12:54 Blood Pressure 147/92 08/21/18 08:54 O2 Sat by Pulse Oximetry (%) 95 08/21/18 09:00 PE: NAD, laying in bed irregular rhythm, regular rate, no mrg no oral lesions CTAB abd soft nontender/nondistended no LE edema right shoulder tender to palpation CBCD WBC 6.2 K/mm3 (4.0-10.0) 08/20/18 03:03 RBC 4.35 M/mm3 (3.60-5.2) 08/20/18 03:03 Hgb 12.9 GM/dL (10.7-15.3) 08/20/18 03:03 Hct 36.7 % (32.4-45.2) 08/20/18 03:03 MCV 84.3 fl (80-96) 08/20/18 03:03 MCHC 35.2 g/dl (32.0-36.0) 08/20/18 03:03 RDW 14.4 % (11.6-15.6) 08/20/18 03:03 Plt Count 225 K/MM3 (134-434) D 08/20/18 03:03 MPV 8.7 fl (7.5-11.1) 08/20/18 03:03 CMP Sodium 136 mmol/L (136-145) 08/20/18 03:03 Potassium 4.6 mmol/L (3.5-5.1) 08/20/18 03:03 Chloride 103 mmol/L (98-107) 08/20/18 03:03 Carbon Dioxide 26 mmol/L (21-32) 08/20/18 03:03 Anion Gap 8 MMOL/L (8-16) 08/20/18 03:03 BUN 11 mg/dL (7-18) 08/20/18 03:03 Creatinine 0.5 mg/dL (0.55-1.3) L 08/20/18 03:03 Creat Clearance w eGFR > 60 (>60) 08/20/18 03:03 Calcium 8.5 mg/dL (8.5-10.1) 08/20/18 03:03 Total Bilirubin 0.7 mg/dL (0.2-1) 08/20/18 03:03 AST 29 U/L (15-37) 08/20/18 03:03 ALT 12 U/L (13-61) L 08/20/18 03:03 Alkaline Phosphatase 88 U/L (45-117) 08/20/18 03:03 Total Protein 7.2 g/dl (6.4-8.2) 08/20/18 03:03 Albumin 3.5 g/dl (3.4-5.0) 08/20/18 03:03 83 yr old woman with newly diagnosed Afib, asthma, anxiety and breast mass admitted for right shoulder pain being further evaluated for breast mass and Afib. Problem list: Breast mass Afib A/P bone scan and imaging reveal joint pain likely degenerative in nature, no osteolytic lesions identified awaiting biopsy of breast mass for further evaluation Cardio recommends heparin AC for afib, pt wants to discuss it with Dr. Islas and her son before consenting to start AC
--- NOTE | 2018-08-21 20:28 | PN ---
Teaching Attending Note Name of Resident: Precious Barron ATTENDING PHYSICIAN STATEMENT I saw and evaluated the patient. I reviewed the resident's note and discussed the case with the resident. I agree with the resident's findings and plan as documented. SUBJECTIVE:Patient seen and examined Wants to discuss issues about a/c with Dr. Islas and son. Work up underway. Await breast biopsy. OBJECTIVE: ASSESSMENT AND PLAN:
[2018-08-22] MEDS: ACETAMINOPHEN 500 MG TABLET (FP) PO PRN ×2 (05:48→18:54)
[2018-08-22] MEDS ORDERED: PT OWN MED DRAWER 7, Y5N ONE (09:25)
--- NOTE | 2018-08-22 09:30 | PN ---
Progress Note, Physician Chief Complaint: feels better,slept well History of Present Illness: Case discussed with Dr Morales,advised THR Lt - Current Medication List Current Medications: Active Medications Acetaminophen (Tylenol -) 500 mg PO Q6H PRN PRN Reason: FEVER/PAIN LEVEL 1-5 Last Admin: 08/22/18 05:48 Dose: 500 mg Alprazolam (Xanax -) 0.5 mg PO BID [facility] Last Admin: 08/21/18 22:01 Dose: 0.5 mg Buspirone HCl (Buspar -) 10 mg PO BID [facility] Last Admin: 08/21/18 22:01 Dose: 10 mg Losartan Potassium (Cozaar -) 50 mg PO DAILY [facility] Last Admin: 08/21/18 10:36 Dose: 50 mg Oxycodone HCl (Roxicodone -) 5 mg PO Q4H PRN PRN Reason: PAIN LEVEL 6-10 Theophylline (Ryder-24) 200 mg PO DAILY [facility] Last Admin: 08/21/18 10:37 Dose: 200 mg - Objective Vital Signs: Vital Signs Temperature 97.8 F 08/22/18 05:00 Pulse Rate 99 H 08/22/18 05:00 Respiratory Rate 20 08/22/18 05:00 Blood Pressure 121/63 08/22/18 05:00 O2 Sat by Pulse Oximetry (%) 95 08/21/18 21:00 Constitutional: Yes: Anxious Eyes: Yes: WNL HENT: Yes: WNL Neck: Yes: WNL Cardiovascular: Yes: Regular Rate and Rhythm Respiratory: Yes: WNL Gastrointestinal: Yes: Normal Bowel Sounds ...Rectal Exam: Yes: Deferred Genitourinary: Yes: WNL Musculoskeletal: Yes: Joint Stiffness Edema: No Neurological: Yes: Alert Labs: CBC, BMP 08/20/18 03:03 08/20/18 03:03 INR, PTT INR 1.10 (0.83-1.09) H 08/20/18 03:03 Assessment/Plan Breast biopsy Will discuss with her regarding THR Lt
[2018-08-22] MEDS: LOSARTAN POTASSIUM 50 MG TABLET (FP) PO SCH (10:16)
[2018-08-22] MEDS: THEOPHYLLINE ANHYDROUS 200 MG CAP.ER.24H PO SCH (10:17)
[2018-08-22] MEDS: busPIRone HCL 10 MG TABLET (FP) PO SCH ×2 (10:17→21:51)
[2018-08-22] MEDS: ALPRAZolam 0.25 MG TABLET PO SCH ×2 (10:19→21:51)
[2018-08-22] MEDS: PSYLLIUM 5.85 GM PACKET PO SCH (10:19)
--- NOTE | 2018-08-22 10:21 | PN ---
Progress Note (short form) - Note Progress Note: 83 year old female admitted with history of shoulder and hip pain, found to have a left breast mass and atrial fibrillation with controlled ventricular response of indeterminate duration. Known case of hypertension, bronchial asthma , depression and anxiety disorder. Patient has periods of rapid ventricular response. She fell in the bathroom on the 08/20/18, and states that she did not listen to the nurses and got up and felt lightheaded. Apparently, there was not obvious injury. No history of chest pain or discomfort, no SOB. Workup in progress regarding breast mass. Active Medications Acetaminophen (Tylenol -) 500 mg PO Q6H PRN PRN Reason: FEVER/PAIN LEVEL 1-5 Last Admin: 08/21/18 04:31 Dose: 500 mg Alprazolam (Xanax -) 0.5 mg PO BID [facility] Last Admin: 08/21/18 10:40 Dose: 0.5 mg Buspirone HCl (Buspar -) 10 mg PO BID [facility] Last Admin: 08/21/18 10:36 Dose: 10 mg Losartan Potassium (Cozaar -) 50 mg PO DAILY [facility] Last Admin: 08/21/18 10:36 Dose: 50 mg Oxycodone HCl (Roxicodone -) 5 mg PO Q4H PRN PRN Reason: PAIN LEVEL 6-10 Theophylline (Ryder-24) 200 mg PO DAILY [facility] Last Admin: 08/21/18 10:37 Dose: 200 mg 83 year old female was in no acute distress, no pallor, cyanosis, clubbing or jaundice. Last Vital Signs Temp Pulse Resp BP Pulse Ox 97.8 F 99 Irregularly irregular 20 121/63 95 08/22/18 05:00 08/22/18 05:00 08/22/18 05:00 08/22/18 05:00 08/21/18 21:00 NECK: Supple, no JVD, carotids were 2+. HEART: PMI in the 5th ICS, no heaves or thrills, S1 variable S2 normal, grade I/ systolic murmur, no gallops heard LUNGS: Clear on auscultation. ABDOMEN: Soft, nontender, no organomegaly or palpable mass. EXTREMITIES: No edema or calf tenderness. CBC, BMP 08/20/18 03:03 08/20/18 03:03 IMPRESSION: 1. Atrial fibrillation with moderate to rapid response. 2. Hypertension. 3. Left mass. 4. Depression and Anxiety disorder. 5. Bronchial asthma. RECOMMENDATIONS: 1. Patient has not agreed to anticoagulation. It was discussed in the presence of her son. Indicaitons and potential complications were discussed and understood. She is aware of the risk thromboembolism. 2. Awaiting left breast biopsy. 3. Add Motoprolol succinate 12.5 mg by mouth daily and titrate as necessary. Documentation prepared by Fabi Arias, acting as a biomedical photographer for Guy Mejia MD.
[2018-08-22 10:35] VITALS: BMI 22.6
[2018-08-22] MEDS: metoPROLOL SUCCINATE 25 MG TAB.SR.24H (FP) PO SCH (10:49)
--- NOTE | 2018-08-22 18:57 | PN ---
Progress Note (short form) - Note Progress Note: Consult Progress Note: Hematology-Oncology feels improvement in her right shoulder pain, has been slowly exercising it. denies fevers, chest pain, sob, palpitations Vital Signs Temperature 98.7 F 08/21/18 08:54 Pulse Rate 106 H 08/21/18 08:54 Respiratory Rate 20 08/21/18 12:54 Blood Pressure 147/92 08/21/18 08:54 O2 Sat by Pulse Oximetry (%) 95 08/21/18 09:00 PE: NAD, laying in bed irregular rhythm, regular rate, no mrg no oral lesions CTAB abd soft nontender/nondistended no LE edema right shoulder tender to palpation, improved ROM CBCD WBC 6.2 K/mm3 (4.0-10.0) 08/20/18 03:03 RBC 4.35 M/mm3 (3.60-5.2) 08/20/18 03:03 Hgb 12.9 GM/dL (10.7-15.3) 08/20/18 03:03 Hct 36.7 % (32.4-45.2) 08/20/18 03:03 MCV 84.3 fl (80-96) 08/20/18 03:03 MCHC 35.2 g/dl (32.0-36.0) 08/20/18 03:03 RDW 14.4 % (11.6-15.6) 08/20/18 03:03 Plt Count 225 K/MM3 (134-434) D 08/20/18 03:03 MPV 8.7 fl (7.5-11.1) 08/20/18 03:03 CMP Sodium 136 mmol/L (136-145) 08/20/18 03:03 Potassium 4.6 mmol/L (3.5-5.1) 08/20/18 03:03 Chloride 103 mmol/L (98-107) 08/20/18 03:03 Carbon Dioxide 26 mmol/L (21-32) 08/20/18 03:03 Anion Gap 8 MMOL/L (8-16) 08/20/18 03:03 BUN 11 mg/dL (7-18) 08/20/18 03:03 Creatinine 0.5 mg/dL (0.55-1.3) L 08/20/18 03:03 Creat Clearance w eGFR > 60 (>60) 08/20/18 03:03 Calcium 8.5 mg/dL (8.5-10.1) 08/20/18 03:03 Total Bilirubin 0.7 mg/dL (0.2-1) 08/20/18 03:03 AST 29 U/L (15-37) 08/20/18 03:03 ALT 12 U/L (13-61) L 08/20/18 03:03 Alkaline Phosphatase 88 U/L (45-117) 08/20/18 03:03 Total Protein 7.2 g/dl (6.4-8.2) 08/20/18 03:03 Albumin 3.5 g/dl (3.4-5.0) 08/20/18 03:03 83 yr old woman with newly diagnosed Afib, asthma, anxiety and breast mass admitted for right shoulder pain being further evaluated for breast mass and Afib. Problem list: Breast mass Afib A/P bone scan and imaging reveal joint pain likely degenerative in nature, no osteolytic lesions identified. awaiting biopsy of breast mass by IR for further evaluation until biopsy, heparin AC for afib, pt wants to discuss it with Dr. Islas and her son before consenting to start AC. pt aware of the emboli risk
--- NOTE | 2018-08-23 07:30 | PN ---
Progress Note (short form) - Note Progress Note: Patient seen Now seems to not want to proceed with I.R. directed biopsy of breast. Had spoken with son last evening and he was in agreement as was the patient . Unclear why the change in direction?
--- NOTE | 2018-08-23 09:18 | PN ---
Progress Note, Physician Chief Complaint: Now patient agrees for breast biopsy - Current Medication List Current Medications: Active Medications Acetaminophen (Tylenol -) 500 mg PO Q6H PRN PRN Reason: FEVER/PAIN LEVEL 1-5 Last Admin: 08/22/18 18:54 Dose: 500 mg Alprazolam (Xanax -) 0.5 mg PO BID [facility] Last Admin: 08/22/18 21:51 Dose: 0.5 mg Buspirone HCl (Buspar -) 10 mg PO BID [facility] Last Admin: 08/22/18 21:51 Dose: 10 mg Losartan Potassium (Cozaar -) 50 mg PO DAILY [facility] Last Admin: 08/22/18 10:16 Dose: 50 mg Metoprolol Succinate (Toprol Xl -) 12.5 mg PO DAILY [facility] Last Admin: 08/22/18 10:49 Dose: 12.5 mg Oxycodone HCl (Roxicodone -) 5 mg PO Q4H PRN PRN Reason: PAIN LEVEL 6-10 Psyllium Hydrophilic Mucilloid (Metamucil (Sugar-Free) -) 5.85 gm PO DAILY [facility] Last Admin: 08/22/18 10:19 Dose: 5.85 gm Theophylline (Ryder-24) 200 mg PO DAILY [facility] Last Admin: 08/22/18 10:17 Dose: 200 mg - Objective Vital Signs: Vital Signs Temperature 97.7 F 08/23/18 06:00 Pulse Rate 95 H 08/23/18 06:00 Respiratory Rate 18 08/23/18 06:00 Blood Pressure 132/65 08/23/18 06:00 O2 Sat by Pulse Oximetry (%) 95 08/22/18 21:00 Constitutional: Yes: Anxious Eyes: Yes: WNL HENT: Yes: WNL Neck: Yes: WNL Cardiovascular: Yes: WNL Respiratory: Yes: WNL Gastrointestinal: Yes: WNL ...Rectal Exam: Yes: Deferred Genitourinary: Yes: WNL Musculoskeletal: Yes: Joint Stiffness Edema: No Neurological: Yes: Alert Psychiatric: Yes: Alert Labs: CBC, BMP 08/20/18 03:03 08/20/18 03:03 INR, PTT INR 1.10 (0.83-1.09) H 08/20/18 03:03 Assessment/Plan Breast biopsy today
[2018-08-23] MEDS ORDERED: PT OWN MED DRAWER 7, Y5N ONE (09:32)
[2018-08-23] MEDS: LOSARTAN POTASSIUM 50 MG TABLET (FP) PO SCH (09:40)
[2018-08-23] MEDS: metoPROLOL SUCCINATE 25 MG TAB.SR.24H (FP) PO SCH (09:40)
[2018-08-23] MEDS: ALPRAZolam 0.25 MG TABLET PO SCH ×2 (09:41→21:32)
[2018-08-23] MEDS: busPIRone HCL 10 MG TABLET (FP) PO SCH ×2 (09:41→21:32)
[2018-08-23] MEDS: THEOPHYLLINE ANHYDROUS 200 MG CAP.ER.24H PO SCH (09:41)
[2018-08-23] MEDS: PSYLLIUM 5.85 GM PACKET PO SCH ×2 (09:41→09:53)
--- NOTE | 2018-08-23 09:57 | PN ---
Progress Note (short form) - Note Progress Note: Pt seen and examined. She is considering a left THR. I recommended maximizing her P.T. now, and to consider a left THR as an out pt on an elective basis. Currently she is trying to ambulate with P.T., She can be WBAT, no specific restrictions. She can be DC'd from an orthopedic pov Follow up as an out pt
[2018-08-23] MEDS: ACETAMINOPHEN 500 MG TABLET (FP) PO PRN (14:45)
[2018-08-24 07:43] LABS: INR 1.05 (0.83-1.09); PROTHROMBIN TIME (PATIENT) 12.4 SEC (9.7-13.0)
[2018-08-24 07:46] LABS: ACTIVATED PTT 27.5 SECONDS (25.2-36.5)
--- NOTE | 2018-08-24 09:44 | PN ---
Progress Note, Physician History of Present Illness: Breast biopy being done - Current Medication List Current Medications: Active Medications Acetaminophen (Tylenol -) 500 mg PO Q6H PRN PRN Reason: FEVER/PAIN LEVEL 1-5 Last Admin: 08/23/18 14:45 Dose: 500 mg Alprazolam (Xanax -) 0.5 mg PO BID [facility] Last Admin: 08/23/18 21:32 Dose: 0.5 mg Buspirone HCl (Buspar -) 10 mg PO BID [facility] Last Admin: 08/23/18 21:32 Dose: 10 mg Losartan Potassium (Cozaar -) 50 mg PO DAILY [facility] Last Admin: 08/23/18 09:40 Dose: 50 mg Metoprolol Succinate (Toprol Xl -) 12.5 mg PO DAILY [facility] Last Admin: 08/23/18 09:40 Dose: 12.5 mg Psyllium Hydrophilic Mucilloid (Metamucil (Sugar-Free) -) 5.85 gm PO DAILY [facility] Last Admin: 08/23/18 09:53 Dose: Not Given Theophylline (Ryder-24) 200 mg PO DAILY [facility] Last Admin: 08/23/18 09:41 Dose: 200 mg - Objective Vital Signs: Vital Signs Temperature 98 F 08/24/18 05:00 Pulse Rate 99 H 08/24/18 05:00 Respiratory Rate 19 08/24/18 05:00 Blood Pressure 121/65 08/24/18 05:00 O2 Sat by Pulse Oximetry (%) 95 08/23/18 21:00 Constitutional: Yes: No Distress Eyes: Yes: WNL HENT: Yes: WNL Neck: Yes: WNL Cardiovascular: Yes: WNL Respiratory: Yes: WNL Gastrointestinal: Yes: WNL ...Rectal Exam: Yes: Deferred Genitourinary: Yes: WNL Breast(s): Yes: Other (Lt breast biopsy today) Labs: CBC, BMP 08/20/18 03:03 08/20/18 03:03 INR, PTT INR 1.05 (0.83-1.09) 08/24/18 05:30
[2018-08-24] MEDS ORDERED: PT OWN MED DRAWER 7, Y5N ONE (09:51)
[2018-08-24] MEDS: busPIRone HCL 10 MG TABLET (FP) PO SCH ×2 (11:49→22:28)
[2018-08-24] MEDS: metoPROLOL SUCCINATE 25 MG TAB.SR.24H (FP) PO SCH (11:50)
[2018-08-24] MEDS: LOSARTAN POTASSIUM 50 MG TABLET (FP) PO SCH (11:50)
[2018-08-24] MEDS: PSYLLIUM 5.85 GM PACKET PO SCH (11:51)
[2018-08-24] MEDS: THEOPHYLLINE ANHYDROUS 200 MG CAP.ER.24H PO SCH (11:53)
[2018-08-24] MEDS: ALPRAZolam 0.25 MG TABLET PO SCH ×2 (11:54→22:13)
[2018-08-24] MEDS: ACETAMINOPHEN 500 MG TABLET (FP) PO PRN ×2 (11:55→21:42)
--- NOTE | 2018-08-24 21:07 | PN ---
Progress Note (short form) - Note Progress Note: Patient seen and examined Feels well. Denies any complaints AFVSS Cor: RSR, No murmurs, No gallops Lungs: Clear to P&A Abd: Soft, Normal bowel sounds, No organomegaly Ext:No significant edema Labs//Meds reviewed a/P 83 y/o patient presenting with rt. shoulder, neck pain. Noted to have left breast mass since 2016. HAs not sought medical attention. s/p biopsy left breast mass/axillary node will need staging CT c/a/p will need close follow up in the office
[2018-08-25] MEDS: ACETAMINOPHEN 500 MG TABLET (FP) PO PRN (08:53)
[2018-08-25] MEDS ORDERED: PT OWN MED DRAWER 7, Y5N ONE (09:03)
--- NOTE | 2018-08-25 09:22 | DS ---
Physical Examination Vital Signs: Vital Signs Temperature 98.4 F 08/25/18 01:53 Pulse Rate 104 H 08/25/18 01:53 Respiratory Rate 20 08/25/18 01:53 Blood Pressure 120/64 08/25/18 01:53 O2 Sat by Pulse Oximetry (%) 94 L 08/24/18 21:00 Findings/Remarks: Admitted with Lhip and Rt shoulder pain Diagnosed to hae Lt breast mass Biopsy done ,to be followed by Dr Figueroa Ortho evaluated by Dr Morales may need THR lt Constitutional: Yes: Calm Eyes: Yes: WNL HENT: Yes: WNL Neck: Yes: WNL Cardiovascular: Yes: WNL Respiratory: Yes: WNL Gastrointestinal: Yes: WNL ...Rectal Exam: Yes: Deferred Breast(s): Yes: Left (No bleeding at biopy site) Peripheral Pulses WNL: Yes Neurological: Yes: Alert ...Motor Strength: WNL Psychiatric: Yes: Alert. No: WNL Labs: CBC, BMP 08/20/18 03:03 08/20/18 03:03 Discharge Summary Reason For Visit: BONE PAIN/NEW ONSET ATRIAL FIBRILATION Current Active Problems Bone pain (Acute) Breast mass (Acute) New onset atrial fibrillation (Acute) Condition: Stable - Instructions Referrals: Pato Islas MD [Primary Care Provider] - - Home Medications Comprehensive Discharge Medication List: Ambulatory Orders Albuterol Sulfate [Proair Respiclick] 90 mcg IH ASDIR 10/14/16 Alprazolam [Xanax Xr] 0.5 mg PO BID 10/14/16 Buspirone HCl [Buspar -] 7.5 mg PO BID 10/14/16 Irbesartan 150 mg PO DAILY 10/14/16 Lidocaine 5% Patch [Lidoderm Patch -] 1 patch TP DAILY 10/14/16 Theophylline Anhydrous [Ryder-24] 300 mg PO DAILY 10/14/16
[2018-08-25] MEDS: LOSARTAN POTASSIUM 50 MG TABLET (FP) PO SCH (09:52)
[2018-08-25] MEDS: metoPROLOL SUCCINATE 25 MG TAB.SR.24H (FP) PO SCH (09:52)
[2018-08-25] MEDS: busPIRone HCL 10 MG TABLET (FP) PO SCH (09:52)
[2018-08-25] MEDS: THEOPHYLLINE ANHYDROUS 200 MG CAP.ER.24H PO SCH (09:53)
[2018-08-25] MEDS: ALPRAZolam 0.25 MG TABLET PO SCH (09:54)
[2018-08-25] MEDS: PSYLLIUM 5.85 GM PACKET PO SCH (10:36)
[2018-08-25 10:37] VITALS: BP 124/74; PULSE 102; TEMP 98
--- NOTE | 2018-08-29 10:33 | PATH ---
Surgical Pathology Report Patient Name: [facility]. Rec. #: [id number] /Age/Gender: 1935 (Age: 83) / F Account: [id number] Location: 4 W TELEMETRY U Taken: 08/24/2018 Received: 08/24/2018 Reported: 08/29/2018 Physicians: Pato Islas M.D. Diego Figueroa M.D. Specimen(s) Received A: LEFT BREAST MASS 10-2:00 RA B: LEFT AXILLARY LYMPH NODE Clinical History Ultrasound findings: Highly suspicious/malignant Final Diagnosis A.SITE 1, LEFT BREAST MASS, 10 - 2:00, RA, BIOPSY: INVASIVE DUCTAL CARCINOMA, MODERATELY DIFFERENTIATED, MEASURING AT LEAST 1 CM IN GREATEST DIMENSION IN THIS MATERIAL. Results of Estrogen Receptor (ER) and Progesterone Receptor (NV) studies performed on block "A1" at [facility] are as follows: ER (clone [id number] mouse monoclonal antibody by [employer]): 100% nuclear staining with strong intensity (Positive). NV (clone16 mouse monoclonal antibody by [employer]): 0 nuclear staining (Negative). Positive and negative controls (internal if applicable) show appropriate results. Formalin fixation and cold ischemic times are within current ASCO/CAP recommendations for ER, NV and Her2 testing. Comment: Immunohistochemical stain performed and interpreted at [facility] show the tumor cells to be positive for E-cadherin, supports a ductal phenotype. Reports for Her 2 and Ki-67 to follow. B. SITE 2, LEFT AXILLARY LYMPH NODE, BIOPSY: CARCINOMA, MORPHOLOGICALLY SIMILAR TO SPECIMEN A, MEASURING AT LEAST 1.2 CM IN GREATEST DIMENSION IN THIS MATERIAL. SCANTY LYMPHOCYTES PRESENT. This case was discussed with Dr. Islas on 08/29/2018. Electronically Signed Trav Marquis M.D. Addendum Reported: 08/30/2018 Addendum Diagnosis Results of Her2 (IHC) & Ki-67 studies performed on block "A" at [place], [place] ([id number]) are as follows: Her2 IHC (EP3 from [employer], formerly known as [id number], using [employer] Polymer Refine detection kit): 0 (Negative). Ki-67: ~20% (Intermediate proliferative index). Positive and negative controls (internal if applicable) show appropriate results. Angela Adame M.D. Gross Description A. Received in formalin labeled "10-2:00 left breast," are 4 foote-yellow, cylindrical portions of fibroadipose tissue ranging from 0.5-1.7 cm in length and averaging 0.1 cm in diameter. The specimens are submitted in toto in one cassette. B. Received in formalin labeled "left breast axilla," is a 2.0 cm in length x 0.1 cm in diameter foote-yellow, cylindrical portion of fibroadipose tissue. The specimen is submitted in toto in one cassette. Time to formalin fixation: 2 minutes Total formalin fixation time: Approximately 8 hours. 08/24/201808/24/2018
== END 2018-08-25 10:57 | disposition home or self-care (01) | DRG 580 ==
LOC: JER 01:54 → JERBED 05:34 → J4W 08:20
PROVIDERS: ADMIT Internal Medicine; ATTEND Internal Medicine
PROC: 0HBU3ZX Excision of Left Breast, Percutaneous Approach, Diagnostic (ICD-10-PCS; principal; 2018-08-24)
PROC: 07B63ZX Excision of Left Axillary Lymphatic, Percutaneous Approach, Diagnostic (ICD-10-PCS; 2018-08-24)
DX: N63.0 Unspecified lump in unspecified breast (principal); R64 Cachexia; N63.20 Unspecified lump in the left breast, unspecified quadrant; I48.91 Unspecified atrial fibrillation; M19.011 Primary osteoarthritis, right shoulder; J45.909 Unspecified asthma, uncomplicated; I10 Essential (primary) hypertension; F41.9 Anxiety disorder, unspecified; M19.90 Unspecified osteoarthritis, unspecified site; M25.511 Pain in right shoulder; M16.0 Bilateral primary osteoarthritis of hip
CPT/HCPCS: 19083; 19084; 36415; 70450-TC; 71045-TC-FY; 71101-TC-LT-FY; 72125-TC; 73030-TC-RT-FY; 73200-TC-RT; 73502-TC-LT-FY; 73502-TC-RT; 76641-TC-LT; 78306-TC; 80053; 81003; 81015; 82550; 84484; 85027; 85384; 85610; 85730; 87086; 87899; 88305-TC; 93005; 93010; 97116-GP; 97162-GP; 99282-25; A4648; A9503; J0131

== ENCOUNTER 2018-09-02 00:21 | Emergency (ER) | payer OTHER ==
--- NOTE | 2018-09-02 01:57 | PDOC ---
History of Present Illness - General Chief Complaint: Injury Stated Complaint: FALL Time Seen by Provider: 09/02/18 01:56 History Source: Patient, Family - History of Present Illness Initial Comments: 09/02/18 20:01 Pt fell off the commode at home; lost balance and fell onto her left side; injured left hip and left wrist. SHe has known severe DJD of the left hip. Timing/Duration: momentarily Severity: mild Associated Symptoms: reports: denies symptoms Past History - Travel Traveled outside of the country in the last 30 days: No Close contact w/someone who was outside of country & ill: No - Past Medical History Allergies/Adverse Reactions: Allergies Allergy/AdvReac Type Severity Reaction Status Date / Time aspirin Allergy Severe Verified 09/02/18 03:14 ibuprofen [From Motrin] Allergy Severe Verified 09/02/18 03:14 Sulfa (Sulfonamide Allergy Severe Verified 09/02/18 03:14 Antibiotics) Home Medications: Ambulatory Orders Albuterol Sulfate [Proair Respiclick] 90 mcg IH ASDIR 10/14/16 Alprazolam [Xanax Xr] 0.5 mg PO BID 10/14/16 Buspirone HCl [Buspar -] 7.5 mg PO BID 10/14/16 Irbesartan 150 mg PO DAILY 10/14/16 Lidocaine 5% Patch [Lidoderm Patch -] 1 patch TP DAILY 10/14/16 Theophylline Anhydrous [Ryder-24] 300 mg PO DAILY 10/14/16 Anemia: No Asthma: Yes Cancer: No Cardiac Disorders: No CVA: No COPD: No CHF: No Dementia: No Diabetes: No GI Disorders: No Disorders: No HTN: No Hypercholesterolemia: No Liver Disease: No Seizures: No Thyroid Disease: No - Surgical History Abdominal Surgery: No Appendectomy: No Cardiac Surgery: No Cholecystectomy: No Lung Surgery: No Neurologic Surgery: No Orthopedic Surgery: No - Immunization History Td Vaccination: Yes TDAP Vaccination: Yes Immunization Up to Date: Yes - Suicide/Smoking/Psychosocial Hx Smoking History: Never smoked Have you smoked in the past 12 months: No Hx Alcohol Use: No Drug/Substance Use Hx: No Substance Use Type: None Hx Substance Use Treatment: No Review of Systems - Review of Systems Constitutional: Yes: Loss of Appetite. No: Symptoms Reported, See HPI, Chills, Diaphoresis, Fever, Malaise, Night Sweats, Weakness, Weight Stable, Unintentional Wgt. Loss, Unexplained wgt Loss, Other HEENTM: No: Symptoms Reported, See HPI, Eye Pain, Blurred Vision, Tearing, Recent change in vision, Double Vision, Cataracts, Ear Pain, Ocular Prothesis, Ear Discharge, Nose Pain, Nose Congestion, Tinnitus, Nose Bleeding, Hearing Loss , Throat Pain, Throat Swelling, Mouth Pain, Dental Problems, Difficulty Swallowing, Mouth Swelling, Other Respiratory: No: Symptoms reported, See HPI, Cough, Orthopnea, Shortness of Breath, SOB with Exertion, SOB at Rest, Stridor, Wheezing, Productive cough, Hemoptysis, Other Cardiac (ROS): No: Symptoms Reported, See HPI, Chest Pain, Edema, Irregular Heart Rate, Lightheadedness, Palpitations, Syncope, Chest Tightness, Other ABD/GI: No: Symptoms Reported, See HPI, Abdominal Distended, Abd. Pain w/ defecation, Blood Streaked Bowels, Constipated, Diarrhea, Difficulty Swallowing , Nausea, Poor Appetite, Poor Fluid Intake, Rectal Bleeding, Vomiting, Indigestion, Abdominal cramping, Tarry Stools, Other : No: Symptoms Reported, See HPI, Burning, Dysuria, Discharge, Frequency, Flank Pain, Hematuria, Incontinence, Pain, Urgency, Testicular Mass, Testicular Swelling, Lesions, Testicular Pain, Other Musculoskeletal: Yes: Joint Pain, Muscle Pain, Joint Stiffness. No: Symptoms Reported, See HPI, Back Pain, Gout, Joint Swelling, Muscle Weakness, Neck Pain, Other Integumentary: No: Symptoms Reported, See HPI, Bruising, Change in Color, Change in Hair/Nails, Dryness, Erythema, Flushing, Lesions, Lumps, Pallor, Pruritus, Rash, Sweating, Other Neurological: No: Symptoms reported, See HPI, Headache, Numbness, Paresthesia, Pre-Existing Deficit, Seizure, Tingling, Tremors, Weakness, Unsteady Gait, Ataxia, Dizziness, Other Psychiatric: No: Anxiety, Depression, Frequent Crying, Stressors, Sleep Pattern Change, Emotional Problems, Mood Swings, Change in Appetite, Other Endocrine: No: Symptoms Reported, See HPI, Excessive Sweating, Flushing, Intolerance to Cold, Intolerance to Heat, Increased Hunger, Increased Thirst, Increased Urine, Unexplained Weight Gain, Unexplained Weight Loss, Change in Weight, Other Hematologic/Lymphatic: No: Symptoms Reported, See HPI, Anemia, Blood Clots, Easy Bleeding, Easy Bruising, Bleeding Diathesis, Lymph Node Abnormalities, Swollen Glands, Other *Physical Exam - Physical Exam General Appearance: Yes: Nourished, Appropriately Dressed, Mild Distress HEENT: positive: EOMI, BRUNO, Normal ENT Inspection, Normal Voice, Symmetrical, TMs Normal, Pharynx Normal Neck: positive: Trachea midline, Supple. negative: Tender Respiratory/Chest: positive: Lungs Clear, Normal Breath Sounds. negative: Chest Tender, Respiratory Distress Cardiovascular: positive: Regular Rhythm, Regular Rate, S1, S2 Gastrointestinal/Abdominal: positive: Flat Musculoskeletal: positive: Normal Inspection. negative: CVA Tenderness, CVA Tenderness (R) Extremity: positive: Normal Capillary Refill, Normal Inspection, Tender, Pelvis Stable. negative: Normal Range of Motion, Coldness, Swelling, Inflammation Integumentary: positive: Normal Color, Dry, Warm Neurologic: positive: diet consultant II-XII NML intact, Fully Oriented, Alert, Normal Mood/ Affect, Normal Response, Finger to Nose. negative: Motor Strength 5/5, Confused , Disoriented *DC/Admit/Observation/Transfer Diagnosis at time of Disposition: Degenerative joint disease of left hip - Discharge Dispostion Disposition: HOME - Referrals Referrals: Pato Islas MD [Primary Care Provider] - - Patient Instructions - Post Discharge Activity
[2018-09-02] MEDS ORDERED: LIDOCAINE 5% TOPICAL PATCH TP ONE (02:01)
[2018-09-02] MEDS ORDERED: ACETAMINOPHEN 500 MG TABLET (FP) PO ONE (02:59)
[2018-09-02] MEDS ORDERED: ACETAMINOPHEN INJECTION 100 ML IVPB ONE (03:04)
[2018-09-02] MEDS ORDERED: LIDOCAINE 5% TOPICAL PATCH ONE (03:05)
[2018-09-02 03:16] VITALS: BP 149/67; PULSE 82; TEMP 97.6; BMI 29.2
[2018-09-02] MEDS ORDERED: ACETAMINOPHEN 325 MG TABLET (FP) ONE (03:21)
[2018-09-02] MEDS ORDERED: LIDOCAINE PATCH REMOVAL MC SCH (22:00)
== END 2018-09-02 04:13 | disposition home or self-care (01) ==
LOC: JER 00:21
DX: S79.812A Other specified injuries of left hip, initial encounter (principal); M16.12 Unilateral primary osteoarthritis, left hip; W18.11XA Fall from or off toilet without subsequent striking against object, initial encounter; Y93.E8 Activity, other personal hygiene; Y92.031 Bathroom in apartment as the place of occurrence of the external cause
CPT/HCPCS: 71045-TC-FY; 73110-TC-LR-FY; 73523-TC-FY; 73552-TC-LT-FY; 99281-25

== ENCOUNTER 2018-11-19 05:43 | Inpatient (IN) | payer OTHER ==
--- NOTE | 2018-11-19 06:11 | PDOC ---
Attending Attestation - Resident Resident Name: Cathy Medellin - ED Attending Attestation I have performed the following: I have examined & evaluated the patient, The case was reviewed & discussed with the resident, I agree w/resident's findings & plan, Exceptions are as noted - HPI HPI: 83 yo PMH breast CA, anxiety, HTN, afib presenting with severe R arm/shoulder pain. Denies trauma. She has had the pain which is progressively worsening. Due to an allergy to NSAIDs and a concern about using opiate pain medication, she has been taking tylenol for the pain with very little relief. She is unable to move due to the pain. She has also been experiencing severe nausea and vomiting , now with dry heaves. She has been unable to tolerate anything PO. - Physicial Exam PE: GENERAL: Awake, alert, and fully oriented. Appears in obvious discomfort. Appears pale and chronically ill. HEAD: No signs of trauma EYES: PERRLA, EOMI, sclera anicteric, conjunctiva clear ENT: Auricles normal inspection, hearing grossly normal, nares patent, oropharynx clear without exudates. Dry mucosa NECK: Normal ROM, supple, no lymphadenopathy, JVD, or masses LUNGS: Breath sounds equal, clear to auscultation bilaterally. No wheezes, and no crackles HEART: Regular rate and rhythm, normal S1 and S2, no murmurs, rubs or gallops ABDOMEN: Soft, nontender, normoactive bowel sounds. No guarding, no rebound. No masses EXTREMITIES: Extreme tenderness to palpation of R shoulder, upper arm, and elbow , no deformity noted. ROM limited by pain. Remainder of extremities with normal range of motion, no edema. No clubbing or cyanosis. No cords, erythema, or tenderness NEUROLOGICAL: Cranial nerves II through XII grossly intact. Normal speech. Motor and sensation intact SKIN: Warm, Dry, normal turgor, no rashes or lesions noted. - Medical Decision Making Pt appears ill, dehydrated, and actively with dry heaves. Will obtain labs including mag and phos. Will XR the upper extremity to r/o pathological fracture. Likely admission for inability to tolerate PO. We discussed medication options, as opioids and NSAIDs do not cross-react. We discussed that in the short term, something like tramadol will give her relief while the etiology is addressed. She is amenable to it. Will give zofran for vomiting.
[2018-11-19] MEDS ORDERED: traMADol HCL 50 MG TABLET PO ONE ×3 (06:31→15:55)
[2018-11-19] MEDS ORDERED: ONDANSETRON 4 MG/2 ML VIAL IVPUSH ONE (06:31)
[2018-11-19] MEDS ORDERED: SODIUM CHLORIDE 500 ML IV STA (06:31)
[2018-11-19] MEDS ORDERED: ONDANSETRON 4 MG/2 ML VIAL ONE (06:38)
[2018-11-19] MEDS ORDERED: traMADol HCL 50 MG TABLET ONE ×3 (06:38→16:01)
--- NOTE | 2018-11-19 06:41 | PDOC ---
History of Present Illness - General Chief Complaint: Pain Stated Complaint: GENERALIZED PAIN Time Seen by Provider: 11/19/18 05:50 - History of Present Illness Initial Comments: 83yo F with PMH of breast CA, anxiety, HTN, Afib presenting with right upper extremity pain. Patient has had pain in this area previously, but now the pain is rated "off the charts." Her son is at the bedside providing collateral history. Patient was recently diagnosed with breast cancer late last year and had started hormone therapy called letrozole. The regimen is for 90 days, after which she will see her oncologist. One of the side effects of the medicine is bone pain and her son believes her right upper extremity pain has worsened as a result. They have not notified her physician regarding her severe arm pain. The pain is so severe, patient has lost her appetite and has not tolerated po intake for the past two days. She has had nausea and dry-heaving. Patient is allergic to motrine/alleve/advil and so will only take tylenol at home. She last took tylenol at 2am which does not relieve her pain whatsoever, but does allow her to rest. Patient is reluctant to take opioids because she does not want to "become a junkie." She has been evaluated by orthopedists in the past who her son reports have recommended eventual treatment with joint injections, however, her priority has been treating her breast cancer. Reports an episode around 3am when she slid off the bed but denies hitting her head or loss of consciousness. Endorses chills, but no fever measured at home. Patient reports having loose stools at baseline. No urinary symptoms. She has shortness of breath which she attributes to her asthma and is well-controlled with her inhalers. Denies chest pain or abdominal pain. PCP: Dr. Islas Oncologist: Dr. Figueroa Ortho: Denise/Andrew Past History - Past Medical History Allergies/Adverse Reactions: Allergies Allergy/AdvReac Type Severity Reaction Status Date / Time aspirin Allergy Severe Verified 11/19/18 05:58 ibuprofen [From Motrin] Allergy Severe Verified 11/19/18 05:58 Sulfa (Sulfonamide Allergy Severe Verified 11/19/18 05:58 Antibiotics) Home Medications: Ambulatory Orders Albuterol Sulfate [Proair Respiclick] 90 mcg IH ASDIR 10/14/16 Alprazolam [Xanax Xr] 0.5 mg PO BID 10/14/16 Buspirone HCl [Buspar -] 7.5 mg PO BID 10/14/16 Irbesartan 150 mg PO DAILY 10/14/16 Lidocaine 5% Patch [Lidoderm Patch -] 1 patch TP DAILY 10/14/16 Theophylline Anhydrous [Ryder-24] 300 mg PO DAILY 10/14/16 Anemia: No Asthma: Yes Cancer: No Cardiac Disorders: No CVA: No COPD: No CHF: No Dementia: No Diabetes: No GI Disorders: No Disorders: No HTN: No Hypercholesterolemia: No Liver Disease: No Seizures: No Thyroid Disease: No - Surgical History Abdominal Surgery: No Appendectomy: No Cardiac Surgery: No Cholecystectomy: No Lung Surgery: No Neurologic Surgery: No Orthopedic Surgery: No - Immunization History Td Vaccination: Yes TDAP Vaccination: Yes Immunization Up to Date: Yes - Suicide/Smoking/Psychosocial Hx Smoking History: Never smoked Have you smoked in the past 12 months: No Information on smoking cessation initiated: No Hx Alcohol Use: No Drug/Substance Use Hx: No Substance Use Type: None Hx Substance Use Treatment: No Review of Systems - Review of Systems Comments:: Constitutional: no fever, +chills HEENT: no throat pain, no dysphagia Cardiovascular: no chest pain, no palpitations Respiratory: no cough, +shortness of breath Gastrointestinal: no abdominal pain, +nausea Genitourinary: no dysuria, no frequency Musculoskeletal: +R. arm pain, +R. shoulder pain Skin: no rash, no itching Neurologic: no headache, no dizziness *Physical Exam - Vital Signs Last Vital Signs Temp Pulse Resp BP Pulse Ox 98.1 F 78 18 151/98 97 11/19/18 05:58 11/19/18 05:58 11/19/18 05:58 11/19/18 05:58 11/19/18 05:58 - Physical Exam Comments: General: Awake, alert, and fully oriented, anxious-appearing Head: No signs of trauma Eyes: EOMI, sclera anicteric ENT: Dry mucus membranes Neck: Normal ROM, supple Lungs: Lungs clear, Normal breath sounds Cardio: Tachycardic, irregular rhythm, S1 and S2 present Abdomen: Soft, nontender, nondistended, patient dry-heaving Extremities: Tender to palpation in R. shoulder, exam for ROM limited by pain; No L. shoulder pain, distal pulses present SKIN: Warm, Dry, normal turgor Neurologic: Cranial nerves II through XII grossly intact. Normal speech Moderate Sedation - Procedure Monitoring Vital Signs: Procedure Monitoring Vital Signs Temperature 98.1 F 11/19/18 05:58 Pulse Rate 78 11/19/18 05:58 Respiratory Rate 18 11/19/18 05:58 Blood Pressure 151/98 11/19/18 05:58 O2 Sat by Pulse Oximetry (%) 97 11/19/18 05:58 ED Treatment Course - LABORATORY CBC & Chemistry Diagram: 11/19/18 06:35 11/19/18 06:35 - RADIOLOGY Radiology Studies Ordered: Category Date Time Status CHEST X-RAY PORTABLE* [RAD] Stat Radiology 11/19/18 06:30 Ordered CLAVICLE-RIGHT SIDE [RAD] Stat Radiology 11/19/18 06:32 Ordered ELBOW-RIGHT [RAD] Stat Radiology 11/19/18 06:32 Ordered FOREARM- RIGHT [RAD] Stat Radiology 11/19/18 06:32 Ordered HUMERUS-RIGHT [RAD] Stat Radiology 11/19/18 06:32 Ordered SHOULDER-RIGHT [RAD] Stat Radiology 11/19/18 06:32 Ordered WRIST W/HAND-RIGHT* [RAD] Stat Radiology 11/19/18 06:32 Ordered Medical Decision Making - Medical Decision Making 83yo F with PMH of breast CA, anxiety, HTN, Afib presenting with right upper extremity pain. DDX including but not limited to osteoarthritis, bone pain secondary to cancer/ medication adverse affect CBC, CMP, Mag, Phos, Tpn, Coags, UA (to assess for ketones), UCx EKG, CXR Radiographs of RUE to r/o fracture 500cc NS 4mg Zofran Tramadol 50 mg EKG: rate 115, QTc 467, Afib with RVR Home dose of Metoprolol 25 ordered for Afib with RVR Likely admission for pain management 11/19/18 06:51 Patient signed out to day team 11/19/18 07:05 *DC/Admit/Observation/Transfer Diagnosis at time of Disposition: Atrial fibrillation with RVR - Discharge Dispostion Condition at time of disposition: Fair - Referrals - Patient Instructions - Post Discharge Activity
[2018-11-19 06:48] LABS: BASO % 0.3 % (0-2.0); HEMATOCRIT 33.9 % (32.4-45.2); HEMOGLOBIN 12.2 GM/dL (10.7-15.3); LYMPH % 22.4 % (8-40); MCH 31.9 pg (25.7-33.7); MCHC 35.9 g/dl (32.0-36.0); MEAN CELL VOLUME 88.8 fl (80-96); MEAN PLT VOLUME 8.1 fl (7.5-11.1); MONO % 9.9 % (3.8-10.2); NEUT % 66.4 % (42.8-82.8); PLATELET COUNT 154 K/MM3 (134-434); RBC 3.81 M/mm3 (3.60-5.2); RDW 14.4 % (11.6-15.6); WHITE BLOOD COUNT 2.4 K/mm3 (4.0-10.0)
[2018-11-19] MEDS ORDERED: metoPROLOL SUCCINATE 25 MG TAB.SR.24H (FP) PO ONE (07:08)
[2018-11-19 07:15] LABS: ALBUMIN 3.6 g/dl (3.4-5.0); ALK PHOS 80 U/L (45-117); ANION GAP 8 MMOL/L (8-16); BILIRUBIN,TOTAL 0.5 mg/dL (0.2-1); BLOOD UREA NITROGEN 19 mg/dL (7-18); CALCIUM 8.7 mg/dL (8.5-10.1); CHLORIDE 103 mmol/L (98-107); CO2 25 mmol/L (21-32); CREATININE 0.5 mg/dL (0.55-1.3); GLUCOSE,RANDOM 108 mg/dL (74-106); INR 1.05 (0.83-1.09); MAGNESIUM 1.7 mg/dL (1.8-2.4); PHOSPHOROUS 3.2 mg/dL (2.5-4.9); POTASSIUM 3.5 mmol/L (3.5-5.1); PROTHROMBIN TIME (PATIENT) 12.4 SEC (9.7-13.0); SGOT/AST 19 U/L (15-37); SGPT/ALT 14 U/L (13-61); SODIUM 136 mmol/L (136-145); TOT PROT 7.1 g/dl (6.4-8.2)
[2018-11-19 07:18] LABS: ACTIVATED PTT 29.1 SECONDS (25.2-36.5)
--- NOTE | 2018-11-19 07:24 | PDOC ---
*Physical Exam - Vital Signs Last Vital Signs Temp Pulse Resp BP Pulse Ox 98.1 F 78 18 151/98 97 11/19/18 05:58 11/19/18 05:58 11/19/18 05:58 11/19/18 05:58 11/19/18 05:58 - Physical Exam General Appearance: Yes: Appropriately Dressed, Thin HEENT: positive: Normal Voice, Hearing Grossly Normal Neck: positive: Trachea midline, Supple Respiratory/Chest: positive: Lungs Clear, Normal Breath Sounds Cardiovascular: positive: S1, S2, Tachycardia Extremity: positive: Other (RUE TTP, full ROM with pain) Integumentary: positive: Normal Color, Dry, Warm Neurologic: positive: Fully Oriented, Alert Heart Score/ECG Review - ECG Impressions Comment:: 11/19/18 08:54 AFib HR 118, no PATRIC/TWI ED Treatment Course - LABORATORY CBC & Chemistry Diagram: 11/19/18 06:35 11/19/18 06:35 - ADDITIONAL ORDERS Additional order review: Laboratory Results 11/19/18 11/19/18 06:35 06:35 PT with INR 12.40 INR 1.05 PTT (Actin FS) 29.1 Sodium 136 Potassium 3.5 Chloride 103 Carbon Dioxide 25 Anion Gap 8 BUN 19 H Creatinine 0.5 L Creat Clearance w eGFR 118.12 Random Glucose 108 H Calcium 8.7 Phosphorus 3.2 Magnesium 1.7 L Total Bilirubin 0.5 AST 19 ALT 14 Alkaline Phosphatase 80 Troponin I < 0.02 Total Protein 7.1 Albumin 3.6 - Medications Given in the ED: ED Medications Discontinued Medications Generic Name Dose Route Start Last Admin Trade Name Melissa PRN Reason Stop Dose Admin Ondansetron HCl 4 mg 11/19/18 06:31 11/19/18 06:44 Zofran Injection IVPUSH 11/19/18 06:32 4 mg ONCE ONE Administration Tramadol HCl 50 mg 11/19/18 06:31 11/19/18 07:07 Ultram - PO 11/19/18 06:32 50 mg ONCE ONE Administration Medical Decision Making - Medical Decision Making 11/19/18 07:22 Patient signed out by Dr. Medellin (Resident) and Dr. Hartman (Attending) 83 year old female w/RUE pain in AFib w/RVR @ presentation. H/o Breast CA currently on anti-estrogen Letrozole. Labs, RUE imaging pending. Patient reassessed @ bedside S/p Tramadol 20 minutes previous. Continues to c/o pain Emphasizes she does not wish to take any opioid medications as her son has a h/o heroin addiction and she [place] and is aware of the effects of drug addicition Will reassess in 45 minutes to evaluate for pain control 11/19/18 08:23 Patient reassessed @ bedside Pain improved with Tramadol Remains tachycardic - has not received BB, will administer BB, will place on shelter monitor 11/19/18 08:32 Patient on shelter monitor; NSR, Tachycardic @ 100's-120's Repeat EKG pending 11/19/18 08:35 My read of shoulder, humerus, elbow, wrist XR shows osteoporitic changes w/o fracture 11/19/18 08:42 Case d/w patient's PMD, will evaluate patient @ bedside 11/19/18 08:53 Repeat EKG shows AFib HR 118, patient recieved Toprol 10 minutes previous - close cardiac monitoring including pain control management 11/19/18 09:11 Dr. Islas @ bedside, agrees w/tele admission Will continue to monitor HR 11/19/18 09:59 HR 100's-120's NSR - cardiac monitoring, Dr. Islas aware. Other VSS Pain improved *DC/Admit/Observation/Transfer Diagnosis at time of Disposition: Atrial fibrillation with RVR - Discharge Dispostion Condition at time of disposition: Fair Decision to Admit order: Yes - Referrals - Patient Instructions - Post Discharge Activity
[2018-11-19] MEDS ORDERED: ALPRAZolam 0.25 MG TABLET PO SCH (11:30)
[2018-11-19] MEDS ORDERED: ALPRAZolam 0.25 MG TABLET ONE (12:09)
[2018-11-19 15:02] LABS: URINE APPEARANCE SLCLOUDY; URINE BILIRUBIN NEGATIVE (<2.0 mg/dL); URINE COLOR YELLOW; URINE GLUCOSE (UA) NEGATIVE (NEGATIVE); URINE KETONE TRACE (NEGATIVE); URINE LEUK ESTERASE 1+ (NEGATIVE); URINE NITRITE NEGATIVE (NEGATIVE); URINE PROTEIN 1+ (NEGATIVE); URINE UROBILINOGEN NEGATIVE mg/dL (0.2-1.0)
[2018-11-19 15:04] LABS: EPI CELLS RARE /HPF (FEW); URINE MUCUS RARE
[2018-11-19] MEDS ORDERED: ACETAMINOPHEN 325 MG TABLET (FP) PO PRN (18:51)
[2018-11-19] MEDS ORDERED: ALBUTEROL SO4 8 GM HFA INHALER IH PRN (18:53)
[2018-11-19] MEDS: traMADol HCL 50 MG TABLET PO PRN (20:41)
[2018-11-19] MEDS: busPIRone HCL 5 MG TABLET PO SCH (21:38)
--- NOTE | 2018-11-19 22:41 | CONSULT ---
Consult - text type - Consultation Consultation Note: 83yo F with PMH of breast CA, anxiety, HTN, Afib presenting with right upper extremity pain. Patient has had pain in this area previously. Patient was recently diagnosed with breast cancer late last year and had started letrozole. The pain is so severe, patient has lost her appetite and has not tolerated po intake for the past two days. Endorses chills, but no fever measured at home. Patient reports having loose stools at baseline. No urinary symptoms. She has shortness of breath which she attributes to her asthma and is well-controlled with her inhalers. Denies chest pain or abdominal pain. Allergies/Adverse Reactions: Allergies Allergy/AdvReac Type Severity Reaction Status Date / Time aspirin Allergy Severe Verified 11/19/18 05:58 ibuprofen [From Motrin] Allergy Severe Verified 11/19/18 05:58 Sulfa (Sulfonamide Allergy Severe Verified 11/19/18 05:58 Antibiotics) Home Medications: Ambulatory Orders Albuterol Sulfate [Proair Respiclick] 90 mcg IH ASDIR 10/14/16 Alprazolam [Xanax Xr] 0.5 mg PO BID 10/14/16 Buspirone HCl [Buspar -] 7.5 mg PO BID 10/14/16 Irbesartan 150 mg PO DAILY 10/14/16 Lidocaine 5% Patch [Lidoderm Patch -] 1 patch TP DAILY 10/14/16 Theophylline Anhydrous [Ryder-24] 300 mg PO DAILY 10/14/16 PMH Asthma: Yes - Suicide/Smoking/Psychosocial Hx Smoking History: Never smoked - Vital Signs Last Vital Signs Temp Pulse Resp BP Pulse Ox 98.1 F 78 18 151/98 97 11/19/18 05:58 11/19/18 05:58 11/19/18 05:58 11/19/18 05:58 11/19/18 05:58 Cor: RSR, No murmurs, No gallops Lungs: Clear to P&A Abd: Soft, Normal bowel sounds, No organomegaly Ext:No significant edema. rue limited range of motion left breast puckering/induration Abnormal Lab Results 11/19/18 11/19/18 11/19/18 06:35 06:35 14:45 WBC 2.4 L BUN 19 H Creatinine 0.5 L Random Glucose 108 H Magnesium 1.7 L Urine Protein 1+ H Urine Ketones Trace H Urine Blood 2+ H Ur Leukocyte Esterase 1+ H Active Medications Generic Name Dose Route Start Last Admin Trade Name Freq PRN Reason Stop Dose Admin Acetaminophen 650 mg 11/19/18 18:51 Tylenol - PO Q6H PRN PAIN Albuterol Sulfate 2 puff 11/19/18 18:53 Ventolin Hfa Inhaler - IH Q6H PRN SHORTNESS OF BREATH Alprazolam 0.5 mg 11/19/18 22:00 Xanax - PO HS PRN ANXIETY Buspirone HCl 7.5 mg 11/19/18 22:00 11/19/18 21:38 Buspar - PO 7.5 mg BID KELLY Administration Lidocaine 1 patch 11/20/18 10:00 Lidoderm Patch - TP DAILY KELLY Losartan Potassium 50 mg 11/20/18 10:00 Cozaar - PO DAILY KELLY Miscellaneous 1 each 11/20/18 22:00 Lidoderm Patch Removal MC DAILY@2200 KELLY Tramadol HCl 50 mg 11/19/18 20:12 11/19/18 20:41 Ultram - PO 50 mg Q6H PRN Administration PAIN LEVEL 4 - 6 a/p 83 y/o patient recently diagnosed left breast locally advanced breast cancer ER+ /NM+/Her2-negative,on letrozole comes in with right shoulder pain Xrays show severe DJD in shoulder joint ? usculoskeletal symptoms worsened with letrozole will hold letrozole -- ? switch to tamoxifen will request ortho consult. No obvious fx on xrays
--- NOTE | 2018-11-19 22:48 | EKG ---
Test Reason : Blood Pressure : / mmHG Vent. Rate : 115 BPM Atrial Rate : 220 BPM P-R Int : 000 ms QRS Dur : 082 ms QT Int : 338 ms P-R-T Axes : 000 068 055 degrees QTc Int : 467 ms ATRIAL FIBRILLATION WITH RAPID VENTRICULAR RESPONSE ABNORMAL ECG WHEN COMPARED WITH ECG OF 20-AUG-2018 02:41, NO SIGNIFICANT CHANGE WAS FOUND Confirmed by VÍCTOR HINDS MD ([id number]) on 11/19/2018 10:47:49 PM Referred By: Confirmed By:VÍCTOR HINDS MD
--- NOTE | 2018-11-19 22:48 | EKG ---
Test Reason : Blood Pressure : / mmHG Vent. Rate : 118 BPM Atrial Rate : 110 BPM P-R Int : 000 ms QRS Dur : 080 ms QT Int : 330 ms P-R-T Axes : 000 047 058 degrees QTc Int : 462 ms ATRIAL FIBRILLATION WITH RAPID VENTRICULAR RESPONSE NONSPECIFIC ST AND T WAVE ABNORMALITY ABNORMAL ECG WHEN COMPARED WITH ECG OF 19-NOV-2018 06:42, Confirmed by VÍTCOR HINDS MD ([id number]) on 11/19/2018 10:47:45 PM Referred By: Confirmed By:VÍCTOR HINDS MD
[2018-11-20 07:13] LABS: HEMATOCRIT 33.2 % (32.4-45.2); HEMOGLOBIN 11.5 GM/dL (10.7-15.3); MCH 31.3 pg (25.7-33.7); MCHC 34.7 g/dl (32.0-36.0); MEAN CELL VOLUME 90.2 fl (80-96); MEAN PLT VOLUME 8.1 fl (7.5-11.1); PLATELET COUNT 164 K/MM3 (134-434); RBC 3.68 M/mm3 (3.60-5.2); RDW 14.8 % (11.6-15.6); WHITE BLOOD COUNT 2.4 K/mm3 (4.0-10.0)
[2018-11-20 07:40] LABS: ALBUMIN 3.4 g/dl (3.4-5.0); ALK PHOS 71 U/L (45-117); ANION GAP 12 MMOL/L (8-16); BILIRUBIN,TOTAL 0.4 mg/dL (0.2-1); BLOOD UREA NITROGEN 17 mg/dL (7-18); CALCIUM 8.3 mg/dL (8.5-10.1); CHLORIDE 101 mmol/L (98-107); CO2 22 mmol/L (21-32); CREATININE 0.4 mg/dL (0.55-1.3); GLUCOSE,RANDOM 75 mg/dL (74-106); POTASSIUM 3.7 mmol/L (3.5-5.1); SGOT/AST 18 U/L (15-37); SGPT/ALT 11 U/L (13-61); SODIUM 135 mmol/L (136-145); TOT PROT 6.6 g/dl (6.4-8.2)
--- NOTE | 2018-11-20 08:54 | CON.ORTH ---
Consult Reason for Consultation:: right shoulder pain - Alcohol/Substance Use Hx Alcohol Use: No - Smoking History Smoking history: Never smoked Have you smoked in the past 12 months: No Home Medications - Allergies Allergies/Adverse Reactions: Allergies Allergy/AdvReac Type Severity Reaction Status Date / Time aspirin Allergy Severe Verified 11/19/18 05:58 ibuprofen [From Motrin] Allergy Severe Verified 11/19/18 05:58 Sulfa (Sulfonamide Allergy Severe Verified 11/19/18 05:58 Antibiotics) - Home Medications Home Medications: Ambulatory Orders Albuterol Sulfate [Proair Respiclick] 90 mcg IH ASDIR 10/14/16 Alprazolam [Xanax Xr] 0.5 mg PO BID 10/14/16 Buspirone HCl [Buspar -] 7.5 mg PO BID 10/14/16 Irbesartan 150 mg PO DAILY 10/14/16 Lidocaine 5% Patch [Lidoderm Patch -] 1 patch TP DAILY 10/14/16 Theophylline Anhydrous [Ryder-24] 300 mg PO DAILY 10/14/16 Physical Exam for Ortho Vital Signs: Vital Signs Temperature 98.2 F 11/20/18 05:15 Pulse Rate 103 H 11/20/18 05:15 Respiratory Rate 20 11/20/18 05:15 Blood Pressure 143/89 11/20/18 05:15 O2 Sat by Pulse Oximetry (%) 96 11/19/18 20:11 Labs: CBC, BMP 11/20/18 06:30 11/20/18 06:30 INR, PTT INR 1.05 (0.83-1.09) 11/19/18 06:35 - Upper Extremity Shoulder: Yes: Right, Limited ROM, Pain, Swelling, Tenderness, Other (+ ttp, + crepitus, limited active ROM, nvi) Imaging - Results X-ray: Report Reviewed, Image Reviewed Assessment/Plan 83yo F with PMH of breast CA, anxiety, HTN, Afib presenting with right upper extremity pain. Patient has had pain in this area previously, but now the pain is rated "off the charts." Her son is at the bedside providing collateral history. Patient was recently diagnosed with breast cancer late last year and had started hormone therapy called letrozole. The regimen is for 90 days, after which she will see her oncologist. One of the side effects of the medicine is bone pain and her son believes her right upper extremity pain has worsened as a result. They have not notified her physician regarding her severe arm pain. She denies any recent injury/trauma. 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 Walker
[2018-11-20] MEDS ORDERED: LIDOCAINE HCL 1%, 10 MG/ML (50 mL VIAL) SQ ONE ×2 (08:59→19:30)
[2018-11-20] MEDS ORDERED: methylPREDNISolone ACET (DEPO) 80 MG/1 ML VIAL IAR ONE (09:15)
[2018-11-20] MEDS ORDERED: PT OWN MED DRAWER 7, Y5N ONE ×2 (09:47→11:17)
[2018-11-20] MEDS: LOSARTAN POTASSIUM 50 MG TABLET (FP) PO SCH (09:52)
[2018-11-20] MEDS: LIDOCAINE 5% TOPICAL PATCH TP SCH (09:53)
[2018-11-20] MEDS: busPIRone HCL 5 MG TABLET PO SCH ×2 (09:53→21:59)
--- NOTE | 2018-11-20 10:32 | HP ---
DATE OF ADMISSION: 11/19/2018 DATE OF DICTATION: 11/20/2018 HISTORY: This is an 83-year-old female known to me for many years diagnosed to have atrial fibrillation, osteoarthritis, CA of the breast on letrozole now, came to the emergency room yesterday with severe intractable pain right shoulder. After getting the tramadol injection patient still had pain, so got admitted. Her atrial fibrillation also was worse with the pulse rate of 120. She was evaluated by Dr. Melchor and Orthopedic evaluation also done. This morning she is feeling better. PHYSICAL EXAMINATION: Vitals: Today blood pressure is 130/70, pulse 100, respirations 20, temperature 98. HEENT: Unremarkable. Neck: Supple, no JVD. Lungs: Clear. Heart: S1, S2 no normal, no S3, S4. Abdomen: Soft. Legs: No edema. Back: Range of motion of the right shoulder is restricted. Neurologic: Grossly normal. LABORATORY REPORTS: Her WBC is 2.4, hemoglobin 11.5, hematocrit 33. Chemistry: Sodium 135, potassium 3.7, BUN 17, creatinine 0.4, INR 1.05. Chest x-ray: Large heart. EKG: Atrial fibrillation. X-ray of the shoulder no fracture. Chest x-ray no infiltrate. PLAN: Continue the present medications, will follow. FINAL DIAGNOSES: 1. Cancer of the breast. 2. Intractable right shoulder pain. 3. Atrial fibrillation. BRET HASSAN M.D. [id number]
--- NOTE | 2018-11-20 16:16 | PN ---
Progress Note (short form) - Note Progress Note: Patient seen and examined Complains of pain and decrease ROM - right upper extremity Seen by ortho Plan for injection into right shoulder Last Vital Signs Temp Pulse Resp BP Pulse Ox 98.7 F 99 H 18 129/63 95 11/20/18 14:22 11/20/18 14:22 11/20/18 14:22 11/20/18 14:22 11/20/18 09:00 Breasts: right breast - no masses Left breas- retraction at 6:00 nipple area Cor: RSR, No murmurs, No gallops Lungs: Clear to P&A Abd: Soft, Normal bowel sounds, No organomegaly Ext:No significant edema Skin: No rashes, Integument intact Decrease ROM - RUE CBC, BMP 11/20/18 06:30 11/20/18 06:30 Current Medications Generic Name Dose Route Start Last Admin Trade Name Freq PRN Reason Stop Dose Admin Acetaminophen 650 mg 11/19/18 18:51 Tylenol - PO Q6H PRN PAIN Albuterol Sulfate 2 puff 11/19/18 18:53 Ventolin Hfa Inhaler - IH Q6H PRN SHORTNESS OF BREATH Alprazolam 0.5 mg 11/19/18 22:00 Xanax - PO HS PRN ANXIETY Buspirone HCl 7.5 mg 11/19/18 22:00 11/20/18 09:53 Buspar - PO 7.5 mg BID KELLY Administration Lidocaine 1 patch 11/20/18 10:00 11/20/18 09:53 Lidoderm Patch - TP 1 patch DAILY KELLY Administration Losartan Potassium 50 mg 11/20/18 10:00 11/20/18 09:52 Cozaar - PO 50 mg DAILY KELLY Administration Miscellaneous 1 each 11/20/18 22:00 Lidoderm Patch Removal MC DAILY@2200 KELLY Tramadol HCl 50 mg 11/19/18 20:12 11/19/18 20:41 Ultram - PO 50 mg Q6H PRN Administration PAIN LEVEL 4 - 6 Impression: ER+ locally advanced LEFT beast cancer Right shoulder pain without obvious mets on imaging ? exacerbation of pain secondary to letrozole It would seem unusual just to have one area of localized pain (right shoulder) with letrozole. Would have expected more diffuse pains, although one isolated area possible with hormones. ?? need for more sensitive imaging. Letrozole has been stopped and ortho plans for local injection. Will ask orth to comment on need for CT or MRI of right shoulder . Note leukopenia To recheck CBC.
[2018-11-20] MEDS: ALPRAZolam 0.25 MG TABLET PO PRN (21:58)
[2018-11-20] MEDS: LIDOCAINE PATCH REMOVAL MC SCH (21:59)
[2018-11-21 07:08] LABS: BASO % 0.4 % (0-2.0); EOS % 0.2 % (0-4.5); HEMATOCRIT 33.5 % (32.4-45.2); HEMOGLOBIN 11.7 GM/dL (10.7-15.3); LYMPH % 27.9 % (8-40); MCH 31.4 pg (25.7-33.7); MCHC 35.1 g/dl (32.0-36.0); MEAN CELL VOLUME 89.5 fl (80-96); MEAN PLT VOLUME 7.9 fl (7.5-11.1); MONO % 10.2 % (3.8-10.2); NEUT % 61.3 % (42.8-82.8); PLATELET COUNT 192 K/MM3 (134-434); RBC 3.74 M/mm3 (3.60-5.2); RDW 14.6 % (11.6-15.6); WHITE BLOOD COUNT 2.8 K/mm3 (4.0-10.0)
[2018-11-21] MEDS: traMADol HCL 50 MG TABLET PO PRN (10:01)
[2018-11-21] MEDS: LOSARTAN POTASSIUM 50 MG TABLET (FP) PO SCH (10:04)
[2018-11-21] MEDS: LIDOCAINE 5% TOPICAL PATCH TP SCH (10:04)
[2018-11-21] MEDS: busPIRone HCL 5 MG TABLET PO SCH ×2 (10:13→21:41)
--- NOTE | 2018-11-21 12:48 | PN ---
Progress Note (short form) - Note Progress Note: Ortho Pt seen and examined- c/o right shoulder pain
--- NOTE | 2018-11-21 12:51 | PN ---
Progress Note (short form) - Note Progress Note: Ortho Pt seen and examined- c/o right shoulder pain Laboratory Tests 11/21/18 06:10 WBC 2.8 L Hgb 11.7 Hct 33.5 Plt Count 192 + ttp, decr rom,nvi a/p Under sterile technique the left glenohumeral jt was injected lidocaine and depo -medrol, injection was tolerated well, no acute reactions Pt made aware injection will take 3-4 days even up to 1 week to take affect Ice ROM exercises ok to d/c from ortho pov f/u as outpt d/w Dr. Morales
--- NOTE | 2018-11-21 14:29 | PN ---
Progress Note, Physician Chief Complaint: Diarrhea History of Present Illness: Received shot Rt shoulder - Current Medication List Current Medications: Active Medications Acetaminophen (Tylenol -) 650 mg PO Q6H PRN PRN Reason: PAIN Albuterol Sulfate (Ventolin Hfa Inhaler -) 2 puff IH Q6H PRN PRN Reason: SHORTNESS OF BREATH Alprazolam (Xanax -) 0.5 mg PO HS PRN PRN Reason: ANXIETY Last Admin: 11/20/18 21:58 Dose: 0.5 mg Buspirone HCl (Buspar -) 7.5 mg PO BID [facility] Last Admin: 11/21/18 10:13 Dose: 7.5 mg Lidocaine (Lidoderm Patch -) 1 patch TP DAILY [facility] Last Admin: 11/21/18 10:04 Dose: 1 patch Losartan Potassium (Cozaar -) 50 mg PO DAILY [facility] Last Admin: 11/21/18 10:04 Dose: 50 mg Miscellaneous (Lidoderm Patch Removal) 1 each MC DAILY@2200 [facility] Last Admin: 11/20/18 21:59 Dose: 1 each Tramadol HCl (Ultram -) 50 mg PO Q6H PRN PRN Reason: PAIN LEVEL 4 - 6 Last Admin: 11/21/18 10:01 Dose: 50 mg - Objective Vital Signs: Vital Signs Temperature 98 F 11/21/18 10:14 Pulse Rate 106 H 11/21/18 10:14 Respiratory Rate 20 11/21/18 10:14 Blood Pressure 128/73 11/21/18 10:14 O2 Sat by Pulse Oximetry (%) 95 11/20/18 21:00 Constitutional: Yes: Mild Distress Eyes: Yes: WNL HENT: Yes: WNL Neck: Yes: WNL Cardiovascular: Yes: WNL Respiratory: Yes: WNL Gastrointestinal: Yes: WNL ...Rectal Exam: Yes: Deferred Genitourinary: Yes: WNL Integumentary: Yes: WNL Neurological: Yes: Alert Labs: CBC, BMP 11/21/18 06:10 11/20/18 06:30 INR, PTT INR 1.05 (0.83-1.09) 11/19/18 06:35 Assessment/Plan Kiopectate for diarrhea
[2018-11-21 14:59] VITALS: BMI 19.7
--- NOTE | 2018-11-21 19:17 | PN ---
Progress Note (short form) - Note Progress Note: Patient seen and examined Received injection of steroids and lidocaine with improvement and some increased ROM ( albeit somewhat still limited) Last Vital Signs Temp Pulse Resp BP Pulse Ox 98.5 F 102 H 22 H 149/86 95 11/21/18 14:31 11/21/18 14:31 11/21/18 14:31 11/21/18 14:31 11/20/18 21:00 Decreased ROM - right shoulder Lungs- clear Cor RSR ( hx of AF) Soft abdomen CBC, BMP 11/21/18 06:10 11/20/18 06:30 Current Medications Generic Name Dose Route Start Last Admin Trade Name Freq PRN Reason Stop Dose Admin Acetaminophen 650 mg 11/19/18 18:51 Tylenol - PO Q6H PRN PAIN Albuterol Sulfate 2 puff 11/19/18 18:53 Ventolin Hfa Inhaler - IH Q6H PRN SHORTNESS OF BREATH Alprazolam 0.5 mg 11/19/18 22:00 11/20/18 21:58 Xanax - PO 0.5 mg HS PRN Administration ANXIETY Buspirone HCl 7.5 mg 11/19/18 22:00 11/21/18 10:13 Buspar - PO 7.5 mg BID KELLY Administration Lidocaine 1 patch 11/20/18 10:00 11/21/18 10:04 Lidoderm Patch - TP 1 patch DAILY KELLY Administration Losartan Potassium 50 mg 11/20/18 10:00 11/21/18 10:04 Cozaar - PO 50 mg DAILY KELLY Administration Miscellaneous 1 each 11/20/18 22:00 11/20/18 21:59 Lidoderm Patch Removal MC 1 each DAILY@2200 KELLY Administration Tramadol HCl 50 mg 11/19/18 20:12 11/21/18 10:01 Ultram - PO 50 mg Q6H PRN Administration PAIN LEVEL 4 - 6 Impression: Breast ca Osteoarthritis right shoulder Neutropenia- somewhat improved. Plan : Hold letrozole Monitor CBC ? alternative hormone in future
[2018-11-21] MEDS ORDERED: PT OWN MED DRAWER 7, Y5N ONE (21:29)
[2018-11-21] MEDS: LIDOCAINE PATCH REMOVAL MC SCH (21:41)
[2018-11-22] MEDS: ALPRAZolam 0.25 MG TABLET PO PRN
[2018-11-22 06:54] VITALS: TEMP 97.9
--- NOTE | 2018-11-22 08:56 | PN ---
Progress Note (short form) - Note Progress Note: Ortho Pt seen and examined- improved from lido/depo injection Selected Entries 11/22/18 06:52 Temperature 97.9 F Pulse Rate 104 H Respiratory 20 Rate Blood Pressure 133/80 decr pain, incr rom nvi a/p ROM exercises ok to d/c from ortho pov f/u as outpt prn d/w Dr. Morales
[2018-11-22 09:31] LABS: BASO % 0.1 % (0-2.0); HEMATOCRIT 35.5 % (32.4-45.2); HEMOGLOBIN 12.4 GM/dL (10.7-15.3); LYMPH % 18.2 % (8-40); MEAN CELL VOLUME 88.6 fl (80-96); MEAN PLT VOLUME 8.1 fl (7.5-11.1); MONO % 10.5 % (3.8-10.2); NEUT % 71.2 % (42.8-82.8); PLATELET COUNT 226 K/MM3 (134-434); RDW 14.6 % (11.6-15.6); WHITE BLOOD COUNT 3.4 K/mm3 (4.0-10.0)
[2018-11-22] MEDS: LOSARTAN POTASSIUM 50 MG TABLET (FP) PO SCH (10:06)
[2018-11-22] MEDS: LIDOCAINE 5% TOPICAL PATCH TP SCH (10:07)
[2018-11-22] MEDS: busPIRone HCL 5 MG TABLET PO SCH (10:08)
--- NOTE | 2018-11-22 10:12 | DS ---
Physical Examination Vital Signs: Vital Signs Temperature 97.9 F 11/22/18 06:52 Pulse Rate 104 H 11/22/18 06:52 Respiratory Rate 20 11/22/18 06:52 Blood Pressure 133/80 11/22/18 06:52 O2 Sat by Pulse Oximetry (%) 95 11/21/18 21:00 Findings/Remarks: Rt. shoulder pain improved, feeling better Constitutional: Yes: Calm Eyes: Yes: WNL HENT: Yes: WNL Neck: Yes: WNL Cardiovascular: Yes: WNL Respiratory: Yes: WNL Gastrointestinal: Yes: WNL ...Rectal Exam: Yes: Deferred Renal/: Yes: WNL Breast(s): Yes: WNL Extremities: Yes: WNL Edema: No ...Motor Strength: WNL Psychiatric: Yes: Alert Labs: CBC, BMP 11/22/18 08:25 11/20/18 06:30 Discharge Summary Reason For Visit: ATRIAL FIBRILLATION W RAPID VENTRICULAR RESPONSE Current Active Problems Atrial fibrillation with RVR (Acute) Condition: Fair - Instructions Referrals: Pato Islas MD [Primary Care Provider] - - Home Medications Comprehensive Discharge Medication List: Ambulatory Orders Albuterol Sulfate [Proair Respiclick] 90 mcg IH ASDIR 10/14/16 Alprazolam [Xanax Xr] 0.5 mg PO BID 10/14/16 Buspirone HCl [Buspar -] 7.5 mg PO BID 10/14/16 Irbesartan 150 mg PO DAILY 10/14/16 Lidocaine 5% Patch [Lidoderm Patch -] 1 patch TP DAILY 10/14/16 Theophylline Anhydrous [Ryder-24] 300 mg PO DAILY 10/14/16
[2018-11-22 11:43] VITALS: BP 142/78; PULSE 100
== END 2018-11-22 12:40 | disposition home or self-care (01) | DRG 556 ==
LOC: JER 05:43 → JERBED 09:00 → J5S 18:08 → OBSVTOIN 11-21 14:32
PROVIDERS: ADMIT Internal Medicine; ATTEND Internal Medicine
PROC: 3E0U33Z Introduction of Anti-inflammatory into Joints, Percutaneous Approach (ICD-10-PCS; principal; 2018-11-21)
PROC: 3E0U3BZ Introduction of Anesthetic Agent into Joints, Percutaneous Approach (ICD-10-PCS; 2018-11-21)
DX: M25.511 Pain in right shoulder (principal); Z68.1 Body mass index [BMI] 19.9 or less, adult; M19.011 Primary osteoarthritis, right shoulder; M79.601 Pain in right arm; F41.9 Anxiety disorder, unspecified; I10 Essential (primary) hypertension; I48.91 Unspecified atrial fibrillation; D70.9 Neutropenia, unspecified; R00.0 Tachycardia, unspecified; C50.912 Malignant neoplasm of unspecified site of left female breast; T45.1X5A Adverse effect of antineoplastic and immunosuppressive drugs, initial encounter; R63.0 Anorexia
CPT/HCPCS: 36415; 71045-TC-FY; 73000-TC-RT-FY; 73030-TC-RT-FY; 73060-TC-RT-FY; 73070-TC-RT-FY; 73090-TC-RT-FY; 73110-TC-RT-FY; 73130-TC-RT-FY; 80053; 81003; 81015; 82607; 82746; 83735; 84100; 84443; 84484; 85025; 85027; 85610; 85730; 87086; 93005; 93010; 99285-25; G0378

== ENCOUNTER 2019-02-28 15:19 | Inpatient (IN) | payer OTHER ==
--- NOTE | 2019-02-28 16:48 | PDOC ---
History of Present Illness - General Chief Complaint: Pain, Acute Stated Complaint: BODY PAIN Time Seen by Provider: 02/28/19 16:41 - History of Present Illness Initial Comments: The pt is a 83F w/ a history of OA, a-fib (no AC), HTN, asthma breast cancer s/ p tx who presents for evaluation for pain s/p fall from standing 2 days ago. The pt states she was attempting to parts picker a remote that fell between her bed and nightstand, stood quickly, passed out, fell in the space between her bed and nightstand, woke a few minutes later and got herself back into bed. Since that time she has had persistent R-sided thoracic wall pain that is achy/sharp, non-radiating, worse with movement, alleviated by rest, and not alleviated by her OA medication (that she cannot remember the name of). She endorses 1 day of dry heaving w/ foods but has been able to tolerate liquids without issue. Denies fevers/chills, GUTIERREZ, vision changes 02/28/19 17:02 Past History - Past Medical History Allergies/Adverse Reactions: Allergies Allergy/AdvReac Type Severity Reaction Status Date / Time aspirin Allergy Severe Verified 02/28/19 16:56 ibuprofen [From Motrin] Allergy Severe Verified 02/28/19 16:56 Sulfa (Sulfonamide Allergy Severe Verified 02/28/19 16:56 Antibiotics) Home Medications: Ambulatory Orders Albuterol Sulfate [Proair Respiclick] 90 mcg IH ASDIR 10/14/16 Alprazolam [Xanax Xr] 0.5 mg PO BID 10/14/16 Buspirone HCl [Buspar -] 7.5 mg PO BID 10/14/16 Irbesartan 150 mg PO DAILY 10/14/16 Lidocaine 5% Patch [Lidoderm Patch -] 1 patch TP DAILY 10/14/16 Theophylline Anhydrous [Ryder-24] 300 mg PO DAILY 10/14/16 Metoprolol Tartrate 25 mg PO DAILY 02/28/19 Tramadol HCl 50 mg PO TID 02/28/19 Anemia: No Asthma: Yes Cancer: Yes (BREAST) Cardiac Disorders: No CVA: No COPD: No CHF: No Dementia: No Diabetes: No GI Disorders: No Disorders: No HTN: No Hypercholesterolemia: No Liver Disease: No Seizures: No Thyroid Disease: No - Surgical History Abdominal Surgery: No Appendectomy: No Cardiac Surgery: No Cholecystectomy: No Lung Surgery: No Neurologic Surgery: No Orthopedic Surgery: No - Immunization History Td Vaccination: Yes TDAP Vaccination: Yes Immunization Up to Date: Yes - Suicide/Smoking/Psychosocial Hx Smoking History: Never smoked Have you smoked in the past 12 months: No Hx Alcohol Use: No Drug/Substance Use Hx: No Substance Use Type: None Hx Substance Use Treatment: No Review of Systems - Review of Systems Able to Perform ROS?: Yes Comments:: GENERAL/CONSTITUTIONAL: No fever or chills. No weakness HEAD, EYES, EARS, NOSE AND THROAT: No change in vision. No ear pain or discharge. No sore throat CARDIOVASCULAR: No shortness of breath RESPIRATORY: Denies cough, hemoptysis GASTROINTESTINAL: No diarrhea or constipation GENITOURINARY: No dysuria, frequency, or change in urination MUSCULOSKELETAL: +Chronic OA especially in RUE SKIN: No rash NEUROLOGIC: No headache, vertigo, or change in strength/sensation ENDOCRINE: No increased thirst. No abnormal weight change HEMATOLOGIC/LYMPHATIC: No anemia, easy bleeding, or history of blood clots ALLERGIC/IMMUNOLOGIC: No hives or skin allergy 02/28/19 16:47 Is the patient limited Romansh proficient: No *Physical Exam - Vital Signs Vital Signs Temp Pulse Resp BP Pulse Ox 97.8 F 89 16 138/80 93 L 02/28/19 15:25 02/28/19 15:25 02/28/19 15:25 02/28/19 15:25 02/28/19 15:25 02/28/19 17:09 - Physical Exam Comments: GENERAL: Awake, alert, and oriented to person/place/time, in no acute distress HEAD: No signs of trauma, normocephalic, atraumatic EYES: PERRLA, EOMI, sclera anicteric, conjunctiva clear ENT: Hearing grossly normal, nares patent, oropharynx clear without exudates. Moist mucosa LUNGS: No distress, speaks in full sentences, clear to auscultation bilaterally HEART: Regular rate and rhythm, normal S1 and S2, no murmurs appreciated, peripheral pulses normal and equal bilaterally CHEST: No thoracic wall TTP ABDOMEN: Soft, nontender, normoactive bowel sounds. No guarding, no rebound EXTREMITIES: Moves all extremities independently; resting BUE tremor at baseline ; diffuse mild TTP but reported as chronic NEUROLOGICAL: Cranial nerves II through XII grossly intact. Normal speech SKIN: Warm, Dry 02/28/19 16:48 ED Treatment Course - LABORATORY CBC & Chemistry Diagram: 03/01/19 05:25 03/01/19 05:25 Medical Decision Making - Medical Decision Making The pt is an 83F w/ a history of HTN, depression, breast cancer, chronic/severe OA who presents for evaluation of R thoracic wall pain s/p syncopal fall 2 days ago Ddx includes fx, contusion, PNX, consider ACS; consider PE, AD, TAA/TAAA ED Course CMP, CBC, Trop I ECG CXR CT head and c-spine 02/28/19 17:20 No anemia No leukocytosis 02/28/19 17:51 Pt signed out to Dr. Andrade *DC/Admit/Observation/Transfer Diagnosis at time of Disposition: Dehydration, A-fib Syncope Qualifiers: Syncope type: unspecified Qualified Code(s): R55 - Syncope and collapse Fall Qualifiers: Encounter type: initial encounter Qualified Code(s): W19.XXXA - Unspecified fall, initial encounter - Discharge Dispostion Condition at time of disposition: Stable - Referrals - Patient Instructions - Post Discharge Activity
[2019-02-28] MEDS ORDERED: ACETAMINOPHEN 1000 MG/100 ML VIAL (NON FORMULARY) IVPB ONE (17:06)
[2019-02-28] MEDS ORDERED: ACETAMINOPHEN INJECTION 100 ML IVPB ONE (17:20)
[2019-02-28 17:48] LABS: BASO % 0.5 % (0-2.0); HEMATOCRIT 39.2 % (32.4-45.2); HEMOGLOBIN 13.3 GM/dL (10.7-15.3); LYMPH % 22.8 % (8-40); MCH 30.1 pg (25.7-33.7); MCHC 33.9 g/dl (32.0-36.0); MEAN CELL VOLUME 88.9 fl (80-96); MEAN PLT VOLUME 8.7 fl (7.5-11.1); MONO % 7.9 % (3.8-10.2); NEUT % 64.8 % (42.8-82.8); PLATELET COUNT 206 K/MM3 (134-434); RBC 4.41 M/mm3 (3.60-5.2); RDW 13.2 % (11.6-15.6); WHITE BLOOD COUNT 6.5 K/mm3 (4.0-10.0)
[2019-02-28 18:05] LABS: ALBUMIN 3.7 g/dl (3.4-5.0); ALK PHOS 77 U/L (45-117); ANION GAP 7 MMOL/L (8-16); BILIRUBIN,TOTAL 0.6 mg/dL (0.2-1); BLOOD UREA NITROGEN 26.7 mg/dL (7-18); CALCIUM 9.2 mg/dL (8.5-10.1); CHLORIDE 104 mmol/L (98-107); CO2 28 mmol/L (21-32); CREATININE 0.7 mg/dL (0.55-1.3); GLUCOSE,RANDOM 126 mg/dL (74-106); POTASSIUM 3.9 mmol/L (3.5-5.1); SGOT/AST 15 U/L (15-37); SGPT/ALT 12 U/L (13-61); SODIUM 138 mmol/L (136-145)
--- NOTE | 2019-02-28 18:23 | PDOC ---
Documentation entered by Rosendo Hill SCRIBE, acting as scribe for Diego Eason MD. Diego Eason MD: This documentation has been prepared by the Sergio pearson Elijah, SCRIBE, under my direction and personally reviewed by me in its entirety. I confirm that the documentation accurately reflects all work, treatment, procedures, and medical decision making performed by me. Attending Attestation - Resident Resident Name: Brady Duarte - ED Attending Attestation I have performed the following: I have examined & evaluated the patient, The case was reviewed & discussed with the resident, I agree w/resident's findings & plan - HPI HPI: 02/28/19 18:07 Patient is an 83 year old female with a significant past medical history of breast CA, anxiety, HTN, Afib who presents to the ED s/p syncopal fall and chest pain. The patient reports that two days ago she was watching TV reached for the remote that fell between the bed and nightstand and syncopized for around 12 minutes. The patient reports the syncope occurring when trying to lift her weight up after grabbing the remote and reports no pain afterwards. The patient also reports sharp/ Pinching/ intermittent chest pain beginning today at the midline, can be felt in her back between the scapula. Pt endorses nuasea and dry heaving yesterday. Denies fever, chills, Diarrhea, abdominal pain , headache, and head pain Allergies: Aspirin, Ibuprofen, Sulfonamide Antibiotics PCP: Dr. Islas - Physicial Exam PE: 02/28/19 18:04 GENERAL: The patient is awake, alert, and fully oriented, Nontoxic - in no acute distress, cachectic appearing HEAD: Normocephalic, atraumatic. LUNGS: cta b/l CARD: rrr, no mrg ABD: soft nontender EXT: No LE edema, no calf tenderness, neg homans, symmetric radial pulses b/l - Medical Decision Making 02/28/19 17:21 83y F hx of severe oa, htn, afib (no ac), htn, asthma, breast ca on meds presents with chest pain. Pt had dropped her remote 2 days ago, went to pick it up, and syncopized. Pt felt fine afterwards, but begain to have nausea and dry heaving last night, and today started to have sharp sternal chest pain that is non pleuritic. no associated diaphroesis, numbness/tingling/weakness, headache, dizziness. pt notes chronic pain due to OA, but denies any fever/chlls, cough, leg swelling, calf pain. 02/28/19 18:03 ddx - doubt msk as pain is not reporucibl consider possible acs - will obtain screening ekg/trop consider possible pe/dissection as remote possibility will obtain cxr to r/o rib fx will reassess 02/28/19 19:03 awiating results signed out to evening team to fu with results and dispo patient Heart Score/ECG Review - ECG Impressions Comment:: 02/28/19 18:48 Twelve-lead EKG was performed and reviewed by me. Irregularly irregular, rate of 101 Nonspecific T wave abnormality Impression atrial fibrillation
[2019-02-28] MEDS ORDERED: LACTATED RINGERS SOLUTION 1000 ML INFUS.BAG IV ONE (18:56)
--- NOTE | 2019-02-28 19:58 | PDOC ---
*Physical Exam - Vital Signs Last Vital Signs Temp Pulse Resp BP Pulse Ox 97.8 F 100 H 16 127/64 97 02/28/19 15:25 02/28/19 18:10 02/28/19 18:10 02/28/19 18:10 02/28/19 19:37 - Physical Exam General Appearance: Yes: Nourished, Appropriately Dressed. No: Apparent Distress HEENT: positive: Normal ENT Inspection, Normal Voice Neck: positive: Supple Respiratory/Chest: positive: Lungs Clear, Normal Breath Sounds Cardiovascular: positive: Regular Rhythm, Regular Rate, S1, S2 Vascular Pulses: Dorsalis-Pedis (R): 2+, Doralis-Pedis (L): 2+ Gastrointestinal/Abdominal: positive: Soft Rectal Exam: positive: deferred Lymphatic: negative: Adenopathy Musculoskeletal: positive: Normal Inspection. negative: CVA Tenderness Extremity: positive: Normal Capillary Refill, Normal Inspection, Normal Range of Motion Integumentary: positive: Normal Color, Dry, Warm Neurologic: positive: Fully Oriented, Alert, Normal Mood/Affect ED Treatment Course - LABORATORY CBC & Chemistry Diagram: 02/28/19 17:00 02/28/19 17:00 - ADDITIONAL ORDERS Additional order review: Laboratory Results 02/28/19 02/28/19 19:20 17:00 D-Dimer 564 H Sodium 138 Potassium 3.9 Chloride 104 Carbon Dioxide 28 Anion Gap 7 L BUN 26.7 H Creatinine 0.7 Est GFR (CKD-EPI)AfAm 93.52 Est GFR (CKD-EPI)NonAf 80.69 Random Glucose 126 H Calcium 9.2 Total Bilirubin 0.6 AST 15 ALT 12 L Alkaline Phosphatase 77 Troponin I < 0.02 Total Protein 7.0 Albumin 3.7 02/28/19 17:00 RBC 4.41 MCV 88.9 MCHC 33.9 RDW 13.2 MPV 8.7 Neutrophils % 64.8 Lymphocytes % 22.8 D Monocytes % 7.9 Eosinophils % 4.0 D Basophils % 0.5 D - RADIOLOGY Radiology Studies Ordered: Category Date Time Status CHEST CTA [CT] Urgent CT Scan 02/28/19 19:57 Ordered - Medications Given in the ED: ED Medications Discontinued Medications Generic Name Dose Route Start Last Admin Trade Name Freq PRN Reason Stop Dose Admin Acetaminophen 1,000 mg 02/28/19 17:06 02/28/19 17:28 Ofirmev Injection - IVPB 02/28/19 17:07 1,000 mg ONCE ONE Administration Lactated Ringer's 1,000 ml 02/28/19 18:56 02/28/19 19:27 Lactated Ringers Solution IV 02/28/19 18:57 1,000 ml ONCE ONE Administration Medical Decision Making - Medical Decision Making Patient signed out to me pending Labs, Head/neck CT, D-Dimer and if possible CTA , then admission to [facility] Head CT: No acute pathology Neck CT: No acute pathology D-Dimer: Elevated at 563 - Will obtain CTA - CTA negative Patient microblogged for admission secondary to syncope, collapse and falls *DC/Admit/Observation/Transfer Diagnosis at time of Disposition: Dehydration, A-fib Syncope Qualifiers: Syncope type: unspecified Qualified Code(s): R55 - Syncope and collapse Fall Qualifiers: Encounter type: initial encounter Qualified Code(s): W19.XXXA - Unspecified fall, initial encounter - Discharge Dispostion Condition at time of disposition: Stable Decision to Admit order: Yes - Referrals - Patient Instructions - Post Discharge Activity
[2019-02-28] MEDS ORDERED: LIDOCAINE 5% TOPICAL PATCH TP ONE (21:48)
[2019-02-28] MEDS ORDERED: LIDOCAINE 5% TOPICAL PATCH ONE (21:54)
[2019-02-28] MEDS ORDERED: LIDOCAINE PATCH REMOVAL MC SCH (22:00)
[2019-03-01 00:41] VITALS: BMI 23.0
[2019-03-01] MEDS: ALPRAZolam 0.25 MG TABLET PO SCH ×3 (03:18→21:11)
[2019-03-01 05:54] LABS: HEMATOCRIT 36.4 % (32.4-45.2); HEMOGLOBIN 12.5 GM/dL (10.7-15.3); MCH 30.3 pg (25.7-33.7); MCHC 34.2 g/dl (32.0-36.0); MEAN CELL VOLUME 88.6 fl (80-96); MEAN PLT VOLUME 8.7 fl (7.5-11.1); PLATELET COUNT 185 K/MM3 (134-434); RBC 4.11 M/mm3 (3.60-5.2); RDW 13.4 % (11.6-15.6); WHITE BLOOD COUNT 5.3 K/mm3 (4.0-10.0)
[2019-03-01] MEDS: traMADol HCL 50 MG TABLET PO SCH ×3 (05:59→21:10)
[2019-03-01 06:27] LABS: ALBUMIN 3.4 g/dl (3.4-5.0); ALK PHOS 73 U/L (45-117); ANION GAP 5 MMOL/L (8-16); BILIRUBIN,TOTAL 0.6 mg/dL (0.2-1); BLOOD UREA NITROGEN 17.9 mg/dL (7-18); CALCIUM 8.8 mg/dL (8.5-10.1); CHLORIDE 105 mmol/L (98-107); CO2 30 mmol/L (21-32); CREATININE 0.5 mg/dL (0.55-1.3); GLUCOSE,RANDOM 95 mg/dL (74-106); POTASSIUM 3.9 mmol/L (3.5-5.1); SGOT/AST 11 U/L (15-37); SGPT/ALT 11 U/L (13-61); SODIUM 140 mmol/L (136-145); TOT PROT 6.5 g/dl (6.4-8.2)
[2019-03-01] MEDS ORDERED: ALBUTEROL SO4 8 GM HFA INHALER IH PRN (09:08)
[2019-03-01] MEDS ORDERED: busPIRone HCL 5 MG TABLET PO SCH (10:00)
--- NOTE | 2019-03-01 10:45 | HP ---
DATE OF ADMISSION: 02/28/2019 HISTORY OF PRESENT ILLNESS: This is an 83-year-old female known to have atrial fibrillation, osteoarthritis, hypertension, asthma, left breast cancer, who lives at home with her son, who greater than most of the time has difficulty in walking around because of the osteoarthritis. She fell from the bed when she got up to brain picker her remote on Monday. After that, she was complaining of pain on the right chest wall area. Patient was worse with movement. The medications for the arthritis were not helping her. So, she decided to come to the ER yesterday. In the ER, complete workup was done, no fracture. She was found to be in atrial fibrillation with a fast ventricular rate. So, she got admitted to telemetry. 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 She did not see her oncologist for some time. At home, she is on albuterol inhalation, Xanax 0.5 mg b.i.d., BuSpar 7.5 mg b.i.d., and 150 mg daily. She also uses lidocaine patch for pain. This morning, she is feeling better. PHYSICAL EXAMINATION: Vital signs: On examination today, BP 140/80, pulse is 108, respirations 20, temperature 98, pulse rate is irregular. . HEENT: Unremarkable. Neck: Supple. No JVD. Lungs: Clear. Heart: S1, S2 normal. No S3, S4. Abdomen: Soft. Extremities: No edema. Breasts: There is mass in the left breast. Neurological: Grossly normal. No clinical evidence of fracture of the hip or extremities. LABORATORY REPORTS: WBC 5.3, hemoglobin 12.5, platelets 195. Chemistry: Sodium 140, potassium 3.9, chloride 105, CO2 of 30, BUN 20, creatinine 0.5, blood sugar 95, albumin 3.4. Chest x-ray no infiltrates, possible atelectasis right base. CT of the head negative. CT of the chest negative. No metastatic lesion or bone METs. IMPRESSION: Atrial fibrillation status post fall, cancer of the breast. PLAN: Since patient is not ambulatory to go to the office, I will get cardiology consult by Dr. Mejia and oncology by Dr. Figueroa. Will continue her present medications. Macey [id number]
[2019-03-01] MEDS ORDERED: PT OWN MED DRAWER 7, Y5N ONE ×3 (11:00→22:21)
[2019-03-01] MEDS: LIDOCAINE 5% TOPICAL PATCH TP SCH (11:02)
[2019-03-01] MEDS: METOPROLOL TARTRATE 25 MG TABLET (FP) PO SCH (11:03)
[2019-03-01] MEDS: LOSARTAN POTASSIUM 50 MG TABLET (FP) PO SCH (11:03)
[2019-03-01] MEDS: busPIRone HCL 5 MG TABLET PO SCH ×2 (11:04→22:45)
[2019-03-01] MEDS: THEOPHYLLINE ANHYDROUS 100 MG CAP.ER.24H PO SCH (11:05)
--- NOTE | 2019-03-01 11:52 | EKG ---
Test Reason : Blood Pressure : / mmHG Vent. Rate : 101 BPM Atrial Rate : 122 BPM P-R Int : 000 ms QRS Dur : 088 ms QT Int : 338 ms P-R-T Axes : 000 081 -80 degrees QTc Int : 438 ms POOR DATA QUALITY, INTERPRETATION MAY BE ADVERSELY AFFECTED ATRIAL FIBRILLATION WITH RAPID VENTRICULAR RESPONSE NONSPECIFIC ST AND T WAVE ABNORMALITY ABNORMAL ECG WHEN COMPARED WITH ECG OF 19-NOV-2018 08:41, NO SIGNIFICANT CHANGE WAS FOUND Confirmed by COLLEEN GUERRERO MD ([id number]) on 03/01/2019 11:52:40 AM Referred By: Confirmed By:COLLEEN GUERRERO MD
--- NOTE | 2019-03-01 14:33 | CON.NEURO ---
Consult Consult Specialty:: Inez Referred by:: Roshan Reason for Consultation:: Fall and syncopy - History of Present Illness History of Present Illness: 83-year-old right-handed female patient with history of breast CA, anxiety, HTN, Afib, tremors Presents to the hospital status post fall patient fell out of bed questionable circumstances patient came into the emergency room patient was stabilized patient was admitted to the telemetry on the ICU bed. Patient is poor historian she doesn't know exactly what happened No report of any seizure-like activity or abnormal behavior since admission Patient doesn't complain of any headache patient with normal attentive span - History Source History Provided By: Medical Record Limitations to Obtaining History: Clinical Condition - Past Medical History ...: No - Alcohol/Substance Use Hx Alcohol Use: No - Smoking History Smoking history: Never smoked Have you smoked in the past 12 months: No If you are a former smoker, when did you quit?: 40 years ago Home Medications - Allergies Allergies/Adverse Reactions: Allergies Allergy/AdvReac Type Severity Reaction Status Date / Time aspirin Allergy Severe Verified 02/28/19 16:56 ibuprofen [From Motrin] Allergy Severe Verified 02/28/19 16:56 Sulfa (Sulfonamide Allergy Severe Verified 02/28/19 16:56 Antibiotics) - Home Medications Home Medications: Ambulatory Orders Albuterol Sulfate [Proair Respiclick] 90 mcg IH ASDIR 10/14/16 Alprazolam [Xanax Xr] 0.5 mg PO BID 10/14/16 Buspirone HCl [Buspar -] 7.5 mg PO BID 10/14/16 Irbesartan 150 mg PO DAILY 10/14/16 Lidocaine 5% Patch [Lidoderm Patch -] 1 patch TP DAILY 10/14/16 Theophylline Anhydrous [Ryder-24] 300 mg PO DAILY 10/14/16 Metoprolol Tartrate 25 mg PO DAILY 02/28/19 Tramadol HCl 50 mg PO TID 02/28/19 Family Disease History - Family Disease History Family History: Unable to Obtain Review of Systems - Review of Systems Constitutional: reports: No Symptoms Eyes: reports: No Symptoms Neurological: reports: Headache, Incoordination, Numbness Physical Exam-Neuro Vital Signs: Vital Signs Temperature 98.4 F 03/01/19 13:37 Pulse Rate 86 03/01/19 13:37 Respiratory Rate 18 03/01/19 13:37 Blood Pressure 112/75 03/01/19 13:37 O2 Sat by Pulse Oximetry (%) 98 03/01/19 09:00 Constitutional: Yes: Well Nourished Neck: Yes: WNL Cardiovascular: Yes: WNL Labs: CBC, BMP 03/01/19 05:25 03/01/19 05:25 - Neuro Exam Level Of Consciousness: Yes: Oriented to Person Eyes: Yes: PERRLA Speech: WNL Dominant Hand: Right Cranial Nerves II-XII Intact: Yes DTR's: 1+ Left Bicep, 1+ Right Bicep, 1+ Left Brachioradialis, 1+ Right Brachioradialis Response to light touch: Normal Response to pain prick: Normal Response to temperature: Normal Motor Strength: 3/5: Left Arm, Right Arm, Left Leg, Right Leg Gait: Deferred Imaging - Results Cat Scan: Image Reviewed Problem List - Problems (1) Syncope Assessment/Plan: syncope associated with cardiac arrhythmia Syncope associated with TIA Spinal stenosis 1. Fall precautions. 2. CAT scan of the lumbosacral spine with no contrast 3 Baby aspirin. 4. Echocardiogram. Orthostatic checks every 12 hours. Code(s): R55 - SYNCOPE AND COLLAPSE Qualifiers: Syncope type: unspecified Qualified Code(s): R55 - Syncope and collapse
--- NOTE | 2019-03-01 19:54 | PN ---
Progress Note (short form) - Note Progress Note: Patient seen and examined 83 year old female who presented after falling out of bed. Admitted with chest pain , arrhythmia . Has chronic arthritic complaints and decrease in ROM of RUE . Prior hospitilization failed to disclose mets in right shoulder or humerus . Patient has history of left breast cancer. ER+, SC+, Her-2 negative. She was initially placed on letrozole. When she was admitted in November , it was discussed that one of the side effects of letrozole was musculoskeletal pains. It was also discussed that it would be unusual for this to just be isolated to one area, i.e. the right shoulder. Nonetheless , letrozole was discontinued. Patient has never been seen in my office for follow up. Her treatment has been over the telephone in discussion with her son , Diomedes. The patient has not resumed any hormones since hospital discharge in November. Last Vital Signs Temp Pulse Resp BP Pulse Ox 98.4 F 115 H 26 H 107/63 98 03/01/19 13:37 03/01/19 17:00 03/01/19 17:00 03/01/19 17:00 03/01/19 09:00 HEENT: PAPI, EOM Intact Oropharynx: No thrush, No mucositis Neck: Supple Nodes: firm left axillary node Breasts: firm left teri-areolar mass Cor: RSR, No murmurs, No gallops Lungs: Clear to P&A Abd: Soft, Normal bowel sounds, No organomegaly Ext:No significant edema; decrease ROM RUE Skin: No rashes, Integument intact CBC, BMP 03/01/19 05:25 03/01/19 05:25 Current Medications Generic Name Dose Route Start Last Admin Trade Name Freq PRN Reason Stop Dose Admin Albuterol Sulfate 1 puff 03/01/19 09:08 Ventolin Hfa Inhaler - IH Q6H PRN SHORTNESS OF BREATH Alprazolam 0.5 mg 03/01/19 03:15 03/01/19 11:02 Xanax - PO 0.5 mg BID KELLY Administration Buspirone HCl 7.5 mg 03/01/19 10:00 03/01/19 11:04 Buspar - PO 7.5 mg BID KELLY Administration Lidocaine 1 patch 03/01/19 10:00 03/01/19 11:02 Lidoderm Patch - TP 1 patch DAILY KELLY Administration Losartan Potassium 50 mg 03/01/19 10:00 03/01/19 11:03 Cozaar - PO 50 mg DAILY KELLY Administration Metoprolol Tartrate 25 mg 03/01/19 10:00 03/01/19 11:03 Lopressor - PO 25 mg DAILY KELLY Administration Miscellaneous 1 each 03/01/19 22:00 Lidoderm Patch Removal MC DAILY@2200 KELLY Theophylline 300 mg 03/01/19 10:00 03/01/19 11:05 Ryder-24 PO 300 mg DAILY KELLY Administration Tramadol HCl 50 mg 03/01/19 06:00 03/01/19 15:20 Ultram - PO 50 mg TID KELLY Administration CT chest - left 8 th rib fracture; L1 compression fracture ; left breast nodule and left axillary node left calculus kidney causing minimal hydronephrosis Impression: Chest pain syndrome Arrhythmia ER+,SC+, 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 No hormonal therapy x 3-4 months. Have discussed change in hormones when out of hospital and to consider tamoxifen therapy as all of the aromatase inhibitors can be associated with musculoskeletal pains. Consider DVT prophylaxis
--- NOTE | 2019-03-01 20:22 | CONS ---
DATE OF CONSULTATION: 03/01/2019 TIME OF CONSULTATION: 3:45 p.m. LOCATION: [facility] CHIEF COMPLAINT: 1. History of fall. 2. History of probable loss of consciousness. 3. History of retching. HISTORY OF PRESENT ILLNESS: The patient is an 83-year-old female with longstanding history of hypertension, permanent atrial fibrillation, bronchial asthma since childhood, history of depression and anxiety disorder, history of generalized osteoarthritis, and history of intentional tremor since childhood. Patient states she was trying to retrieve her remote control and got wedged between her bed and nightstand. She became lightheaded and fears that she lost consciousness and states that she may have been unconscious for 12 minutes. The episode occurred last Monday; on Monday, she started to experience retching which was persistent. The following day, she developed right sided localized sharp chest pains which she attributed to retching. There is no history of diaphoresis, no vomiting was reported. There is no history of cough or expectoration, no history of dyspnea either at rest or with exertion. PAST HISTORY: As mentioned in the history of present illness. History of left breast carcinoma that has been untreated. SURGICAL HISTORY: She has had stitches to the right elbow. SOCIAL HISTORY: She is not . She has 2 sons. Stopped smoking at the age of 51, smoked from teenage years and states that she used to smoke 1 pack of cigarettes per week. She has a social drink. No history of excessive use of caffeine. FAMILY HISTORY: Father of tuberculosis in his 40s. Mother suddenly in her 60s. Has 3 brothers and 3 sisters. Her older brother committed suicide in his 40s, he suffered from depression. One brother apparently of carcinoma of the stomach at age 65. Her third brother also of carcinoma but site is uncertain. He in his 70s. Her older sister is in her 90s and is alive. She resides in a [facility] facility. Her young sister is estranged, and she has no history of her health issues. A third sister of carcinoma in her 70s. ALLERGIES: SULFA. Patient apparently also had anaphylactic shock related to MOTRIN. CURRENT MEDICATIONS: 1. Lidoderm patch 1 daily. 2. Losartan 50 mg p.o. daily. 3. BuSpar 7.5 mg p.o. t.i.d. 4. Xanax 0.5 mg b.i.d. 5. Ventolin MDI one inhalation q.i.d. p.r.n. 6. Metoprolol tartrate 25 mg p.o. daily. 7. Ultram 50 mg p.o. t.i.d. 8. Theophylline 300 mg p.o. daily. REVIEW OF SYSTEMS: Constitutional: No history of chills, fever, or night sweats. No history of unintentional weight loss. HEENT: No history of headaches, diplopia, blurred vision reported. No history of epistaxis, hoarseness, tinnitus or deafness. Cardiovascular: See history of present illness. Respiratory: History of bronchial asthma since childhood with occasional exacerbation. No history of hemoptysis. No history of tuberculosis. Gastrointestinal: See history of present illness. No history of recurrence of retching, nausea, vomiting, melena, or hematemesis. No history of early satiety, no history of abdominal pain or discomfort. No history of change in bowel habits reported. Neurological: See history of present illness. Musculoskeletal: History of osteoarthritis especially involving the right shoulder. Endocrine: No history of polyuria or polydipsia. No history of intolerance to cold or warm weather. Genitourinary: No history of dysuria, frequency, hematuria. Neurological: No history of anemia, ecchymosis, or bleeding. Miscellaneous: Patient has had left breast cancer for the past 2 plus years and is currently refusing treatment. PHYSICAL EXAMINATION: General: An 83-year-old cachectic female was in no acute distress, no pallor, cyanosis, clubbing or jaundice. Vital signs: Blood pressure 112/75 mmHg, pulse 86 beats per minute and irregularly irregular. Respirations 18 per minute. O2 saturation on room air 98%. Temperature 98.4 F. Neck: Supple. No jugulovenous distention, carotids were equal, upstrokes were normal, no bruits were heard, and no thyromegaly was present. Heart: PMI was in the 5th intercostal space, no heaves or thrills, S1 was variable, S2 was normal, no murmur or gallops were heard. Lungs: Clear on auscultation. Abdomen: Soft, nontender, no hepatosplenomegaly or palpable masses were felt. Extremities: No calf tenderness or dependent edema, femoral pulses were 2+, dorsalis pedis pulses were 2+. Posterior tibial pulses could not be palpated. LABORATORY DATA: ECG is not available. X-ray chest dated February 28, 2019: Single AP view of the chest reveals scoliosis with large heart, sclerotic and normal hilar. An acute chest process is not seen. There are degenerative spine and shoulder changes. Chronic rib fracture is not seen. The soft tissues are intact. There may be some minimal atelectasis at the right base. For more complete evaluation, further images with may be helpful. CTA of the chest, impression: No CT evidence of pulmonary embolism or to her acute intrathoracic pathology. An irregular left breast nodule is noted. Left axillary lymphadenopathy is seen. Chronic left 8th rib fracture, mild to moderate chronic appearing L1 vertebral body compression fracture. A 2.3 x 1.1 cm calculus is seen in the left renal pelvis with resultant mild hydronephrosis. CBC March 01, 2019: WBC 5300. Hemoglobin was 12.5 g per dL. Platelet count 185,000. Differential: Neutrophils 68.4, lymphocytes 22.8, monocytes 7.9, eosinophils 4.0, basophils 0.5%. Chemistry: Sodium 140, potassium 3.9, chloride 105, CO2 of 30 mmol per liter. BUN 17.9, creatinine 0.5 mg/dL. Normal liver function tests. CK 123, troponins were less than 0.02 on 4 different occasions. IMPRESSION: 1. Possible syncopal episode probably related to a traumatic fall. 2. Permanent atrial fibrillation with controlled ventricular response. 3. Hypertension, hypertensive cardiovascular disease. 4. Left breast carcinoma with possible axillary metastatic disease. 5. Chronic bronchial asthma, etiology: a. Pain of musculoskeletal origin. b. Possibility of metastatic disease needs to be excluded. 6. History of retching, etiology needs to be determined. 7. Hypertension, hypertensive cardiovascular disease currently normotensive. RECOMMENDATION: 1. ECG. 2. Continue current treatment. 3. Check blood pressure supine and standing. 4. Oncological evaluation pending. 5. Cautious hydration. 6. Prognosis guarded. Thank you for your referral. MISTY WOODARD M.D. [id number]
[2019-03-01] MEDS: LIDOCAINE PATCH REMOVAL MC SCH (21:11)
[2019-03-01] MEDS: ENOXAPARIN NA (PORCINE) 30 MG/0.3 ML DISP.SYRIN SQ SCH (21:12)
[2019-03-02] MEDS: traMADol HCL 50 MG TABLET PO SCH ×3 (06:06→21:33)
[2019-03-02] MEDS ORDERED: PT OWN MED DRAWER 7, Y5N ONE (10:24)
[2019-03-02] MEDS: LIDOCAINE 5% TOPICAL PATCH TP SCH (10:25)
[2019-03-02] MEDS: LOSARTAN POTASSIUM 50 MG TABLET (FP) PO SCH (10:25)
[2019-03-02] MEDS: METOPROLOL TARTRATE 25 MG TABLET (FP) PO SCH (10:25)
[2019-03-02] MEDS: ALPRAZolam 0.25 MG TABLET PO SCH ×2 (10:25→21:33)
[2019-03-02] MEDS: ENOXAPARIN NA (PORCINE) 30 MG/0.3 ML DISP.SYRIN SQ SCH (10:25)
[2019-03-02] MEDS: THEOPHYLLINE ANHYDROUS 100 MG CAP.ER.24H PO SCH (10:26)
[2019-03-02] MEDS: busPIRone HCL 5 MG TABLET PO SCH ×2 (10:26→21:33)
--- NOTE | 2019-03-02 13:44 | PN ---
Progress Note, Physician Chief Complaint: Feels better History of Present Illness: Dr Mejias cardiology consult,Dr Figueroas oncology consult and bhavik Olsen neurology consult appreciated Spoke with her son Diomedes in detail,he thinks mother may need short term rehab - Current Medication List Current Medications: Active Medications Albuterol Sulfate (Ventolin Hfa Inhaler -) 1 puff IH Q6H PRN PRN Reason: SHORTNESS OF BREATH Alprazolam (Xanax -) 0.5 mg PO BID [facility] Last Admin: 03/02/19 10:25 Dose: 0.5 mg Buspirone HCl (Buspar -) 7.5 mg PO BID [facility] Last Admin: 03/02/19 10:26 Dose: 7.5 mg Enoxaparin Sodium (Lovenox -) 30 mg SQ DAILY [facility] Last Admin: 03/02/19 10:25 Dose: 30 mg Lidocaine (Lidoderm Patch -) 1 patch TP DAILY [facility] Last Admin: 03/02/19 10:25 Dose: 1 patch Losartan Potassium (Cozaar -) 50 mg PO DAILY [facility] Last Admin: 03/02/19 10:25 Dose: 50 mg Metoprolol Tartrate (Lopressor -) 25 mg PO DAILY [facility] Last Admin: 03/02/19 10:25 Dose: 25 mg Miscellaneous (Lidoderm Patch Removal) 1 each MC DAILY@2200 [facility] Last Admin: 03/01/19 21:11 Dose: 1 each Theophylline (Ryder-24) 300 mg PO DAILY [facility] Last Admin: 03/02/19 10:26 Dose: 300 mg Tramadol HCl (Ultram -) 50 mg PO TID [facility] Last Admin: 03/02/19 06:06 Dose: 50 mg - Objective Vital Signs: Vital Signs Temperature 97.4 F L 03/02/19 06:00 Pulse Rate 106 H 03/02/19 06:00 Respiratory Rate 22 H 03/02/19 06:00 Blood Pressure 136/57 L 03/02/19 06:00 O2 Sat by Pulse Oximetry (%) 95 03/01/19 20:46 Constitutional: Yes: No Distress Eyes: Yes: WNL HENT: Yes: WNL Neck: Yes: WNL Cardiovascular: Yes: WNL, Regular Rate and Rhythm Respiratory: Yes: WNL Gastrointestinal: Yes: WNL ...Rectal Exam: Yes: Deferred Genitourinary: Yes: WNL Breast(s): Yes: Mass Musculoskeletal: Yes: Muscle Weakness Edema: No Neurological: Yes: Alert Psychiatric: Yes: Alert Labs: CBC, BMP 03/01/19 05:25 03/01/19 05:25 Assessment/Plan Stable ,continue same trt PT for ambulation
[2019-03-02] MEDS: LIDOCAINE PATCH REMOVAL MC SCH (21:50)
[2019-03-03 04:30] LABS: EPI CELLS 2.3 /HPF (0-5/HPF); HYALINE CASTS 167 /lpf (0-8); URINE APPEARANCE CLOUDY; URINE BACTERIA 64.5 /hpf (NEGATIVE); URINE BILIRUBIN NEGATIVE (NEGATIVE); URINE COLOR YELLOW; URINE GLUCOSE (UA) NEGATIVE (NEGATIVE); URINE KETONE TRACE (NEGATIVE); URINE LEUK ESTERASE 2+ (NEGATIVE); URINE NITRITE NEGATIVE (NEGATIVE); URINE PROTEIN 1+ (NEGATIVE); URINE RBC 4 /hpf (0-4); URINE WBC 156 /hpf (0-5)
[2019-03-03 05:38] LABS: YEAST NEGATIVE (NEGATIVE)
[2019-03-03] MEDS: traMADol HCL 50 MG TABLET PO SCH ×3 (07:24→21:47)
[2019-03-03] MEDS: LIDOCAINE 5% TOPICAL PATCH TP SCH (09:27)
[2019-03-03] MEDS: LOSARTAN POTASSIUM 50 MG TABLET (FP) PO SCH (09:28)
[2019-03-03] MEDS: ALPRAZolam 0.25 MG TABLET PO SCH ×2 (09:28→21:47)
[2019-03-03] MEDS: METOPROLOL TARTRATE 25 MG TABLET (FP) PO SCH (09:28)
[2019-03-03] MEDS: ENOXAPARIN NA (PORCINE) 30 MG/0.3 ML DISP.SYRIN SQ SCH (09:28)
[2019-03-03] MEDS: THEOPHYLLINE ANHYDROUS 100 MG CAP.ER.24H PO SCH (09:30)
[2019-03-03] MEDS ORDERED: PT OWN MED DRAWER 7, Y5N ONE (09:31)
[2019-03-03] MEDS: busPIRone HCL 5 MG TABLET PO SCH ×2 (09:31→21:48)
--- NOTE | 2019-03-03 14:05 | PN ---
Progress Note, Physician Chief Complaint: Feels better History of Present Illness: Admitted after a fall at home Her family beside her ,they all agree for SNF placement - Current Medication List Current Medications: Active Medications Albuterol Sulfate (Ventolin Hfa Inhaler -) 1 puff IH Q6H PRN PRN Reason: SHORTNESS OF BREATH Alprazolam (Xanax -) 0.5 mg PO BID [facility] Last Admin: 03/03/19 09:28 Dose: 0.5 mg Buspirone HCl (Buspar -) 7.5 mg PO BID [facility] Last Admin: 03/03/19 09:31 Dose: 7.5 mg Enoxaparin Sodium (Lovenox -) 30 mg SQ DAILY [facility] Last Admin: 03/03/19 09:28 Dose: 30 mg Lidocaine (Lidoderm Patch -) 1 patch TP DAILY [facility] Last Admin: 03/03/19 09:27 Dose: 1 patch Losartan Potassium (Cozaar -) 50 mg PO DAILY [facility] Last Admin: 03/03/19 09:28 Dose: 50 mg Metoprolol Tartrate (Lopressor -) 25 mg PO DAILY [facility] Last Admin: 03/03/19 09:28 Dose: 25 mg Miscellaneous (Lidoderm Patch Removal) 1 each MC DAILY@2200 [facility] Last Admin: 03/02/19 21:50 Dose: 1 each Theophylline (Ryder-24) 300 mg PO DAILY [facility] Last Admin: 03/03/19 09:30 Dose: 300 mg Tramadol HCl (Ultram -) 50 mg PO TID [facility] Last Admin: 03/03/19 13:13 Dose: 50 mg - Objective Vital Signs: Vital Signs Temperature 98.8 F 03/02/19 18:00 Pulse Rate 90 03/03/19 12:00 Respiratory Rate 89 H 03/03/19 12:00 Blood Pressure 114/74 03/03/19 12:00 O2 Sat by Pulse Oximetry (%) 97 03/03/19 09:00 Constitutional: Yes: No Distress Eyes: Yes: WNL HENT: Yes: WNL Neck: Yes: WNL Cardiovascular: Yes: WNL, Regular Rate and Rhythm, Pulse Irregular Respiratory: Yes: WNL Gastrointestinal: Yes: Normal Bowel Sounds Genitourinary: Yes: WNL Breast(s): Yes: WNL, Mass Musculoskeletal: Yes: Muscle Weakness Edema: No Peripheral Pulses WNL: Yes Labs: CBC, BMP 03/01/19 05:25 03/01/19 05:25 Assessment/Plan continue same trt
[2019-03-03] MEDS: LIDOCAINE PATCH REMOVAL MC SCH (21:48)
[2019-03-04] MEDS: traMADol HCL 50 MG TABLET PO SCH ×3 (05:19→21:44)
--- NOTE | 2019-03-04 09:38 | PN ---
Progress Note, Physician Chief Complaint: Feels better History of Present Illness: S/P fall,Ca breast,Afib - Current Medication List Current Medications: Active Medications Albuterol Sulfate (Ventolin Hfa Inhaler -) 1 puff IH Q6H PRN PRN Reason: SHORTNESS OF BREATH Alprazolam (Xanax -) 0.5 mg PO BID [facility] Last Admin: 03/03/19 21:47 Dose: 0.5 mg Buspirone HCl (Buspar -) 7.5 mg PO BID [facility] Last Admin: 03/03/19 21:48 Dose: 7.5 mg Enoxaparin Sodium (Lovenox -) 30 mg SQ DAILY [facility] Last Admin: 03/03/19 09:28 Dose: 30 mg Lidocaine (Lidoderm Patch -) 1 patch TP DAILY [facility] Last Admin: 03/03/19 09:27 Dose: 1 patch Losartan Potassium (Cozaar -) 50 mg PO DAILY [facility] Last Admin: 03/03/19 09:28 Dose: 50 mg Metoprolol Tartrate (Lopressor -) 25 mg PO DAILY [facility] Last Admin: 03/03/19 09:28 Dose: 25 mg Miscellaneous (Lidoderm Patch Removal) 1 each MC DAILY@2200 [facility] Last Admin: 03/03/19 21:48 Dose: 1 each Theophylline (Ryder-24) 300 mg PO DAILY [facility] Last Admin: 03/03/19 09:30 Dose: 300 mg Tramadol HCl (Ultram -) 50 mg PO TID [facility] Last Admin: 03/04/19 05:19 Dose: 50 mg - Objective Vital Signs: Vital Signs Temperature 98.4 F 03/04/19 06:00 Pulse Rate 101 H 03/04/19 06:00 Respiratory Rate 21 H 03/04/19 06:00 Blood Pressure 111/67 03/04/19 06:00 O2 Sat by Pulse Oximetry (%) 97 03/03/19 21:00 Constitutional: Yes: No Distress Eyes: Yes: WNL HENT: Yes: WNL Neck: Yes: WNL Cardiovascular: Yes: WNL Respiratory: Yes: WNL Gastrointestinal: Yes: WNL ...Rectal Exam: Yes: Deferred Genitourinary: Yes: WNL Breast(s): Yes: Other (Left breast mass) Edema: No Neurological: Yes: Alert Psychiatric: Yes: Alert Labs: CBC, BMP 03/01/19 05:25 03/01/19 05:25 Assessment/Plan Start on Elaquis
[2019-03-04] MEDS: LOSARTAN POTASSIUM 50 MG TABLET (FP) PO SCH (09:41)
[2019-03-04] MEDS: LIDOCAINE 5% TOPICAL PATCH TP SCH (09:42)
[2019-03-04] MEDS: METOPROLOL TARTRATE 25 MG TABLET (FP) PO SCH (09:42)
[2019-03-04] MEDS: ENOXAPARIN NA (PORCINE) 30 MG/0.3 ML DISP.SYRIN SQ SCH (09:42)
[2019-03-04] MEDS: ALPRAZolam 0.25 MG TABLET PO SCH ×2 (09:42→21:44)
[2019-03-04] MEDS ORDERED: PT OWN MED DRAWER 7, Y5N ONE ×2 (09:47→21:34)
[2019-03-04] MEDS: busPIRone HCL 5 MG TABLET PO SCH ×2 (09:48→21:45)
[2019-03-04] MEDS: THEOPHYLLINE ANHYDROUS 100 MG CAP.ER.24H PO SCH (09:52)
[2019-03-04] MEDS: APIXABAN 2.5 MG TABLET PO SCH ×2 (12:34→21:45)
--- NOTE | 2019-03-04 13:37 | PN ---
Physical Exam: Heme/ONC SUBJECTIVE: Patient seen and examined. No acute events overnight. No complaints this morning. Says she wants to start her new hormone medication as soon as possible. OBJECTIVE: Vital Signs Period Temp Pulse Resp BP Sys/Huynh Pulse Ox Last 24 Hr 98.1 F-98.7 F 83-101 20-25 102-123/62-77 97-98 HEENT: PAPI, EOM Intact Oropharynx: No thrush, No mucositis Neck: Supple Nodes: firm left axillary node Breasts: firm left teri-areolar mass Cor: RSR, No murmurs, No gallops Lungs: Clear to P&A Abd: Soft, Normal bowel sounds, No organomegaly Ext:No significant edema; decrease ROM RUE Skin: No rashes, Integument intact Laboratory Results - last 24 hr 03/04/19 11:41 POC Glucometer 138 Active Medications Generic Name Dose Route Start Last Admin Trade Name Freq PRN Reason Stop Dose Admin Albuterol Sulfate 1 puff 03/01/19 09:08 Ventolin Hfa Inhaler - IH Q6H PRN SHORTNESS OF BREATH Alprazolam 0.5 mg 03/01/19 03:15 03/04/19 09:42 Xanax - PO 0.5 mg BID [facility] Administration Apixaban 2.5 mg 03/04/19 11:30 03/04/19 12:34 Eliquis - PO 2.5 mg BID [facility] Administration Buspirone HCl 7.5 mg 03/01/19 10:00 03/04/19 09:48 Buspar - PO 7.5 mg BID [facility] Administration Lidocaine 1 patch 03/01/19 10:00 03/04/19 09:42 Lidoderm Patch - TP 1 patch DAILY [facility] Administration Losartan Potassium 50 mg 03/01/19 10:00 03/04/19 09:41 Cozaar - PO 50 mg DAILY [facility] Administration Metoprolol Tartrate 25 mg 03/01/19 10:00 03/04/19 09:42 Lopressor - PO 25 mg DAILY [facility] Administration Miscellaneous 1 each 03/01/19 22:00 03/03/19 21:48 Lidoderm Patch Removal MC 1 each DAILY@2200 [facility] Administration Theophylline 300 mg 03/01/19 10:00 03/04/19 09:52 Ryder-24 PO 300 mg DAILY [facility] Administration Tramadol HCl 50 mg 03/01/19 06:00 03/04/19 05:19 Ultram - PO 50 mg TID [facility] Administration ASSESSMENT/PLAN: #Chest pain syndrome #Arrhythmia #[place]+,[place]+, 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 No hormonal therapy x 3-4 months. Patient had a discussion with Dr. Figueroa regarding changing hormones once discharged. Patient says she is willing to start new medications as soon as possible. Will discuss monthly Faslodex injection vs Tamoxifen. Visit type - Emergency Visit Emergency Visit: Yes ED Registration Date: 02/28/19 Care time: The patient presented to the Emergency Department on the above date and was hospitalized for further evaluation of their emergent condition. - New Patient This patient is new to me today: Yes Date on this admission: 03/04/19 - Critical Care Critical Care patient: No
--- NOTE | 2019-03-04 20:53 | CONS ---
FOLLOWUP VISIT ON TELEMETRY DATE OF CONSULTATION: DATE OF DICTATION: 03/04/2019 This 83-year-old female was admitted with a history of fall and injury to the right chest wall, complaining of chest discomfort. She has longstanding history of permanent atrial fibrillation, hypertension, bronchial asthma since childhood, history of depression and anxiety disorder, a history of intentional tremors. Patient was resting comfortably. She had no chest pains. No shortness of breath was reported. There is no history of palpitations, lightheadedness, dizziness, presyncope, or syncope. MEDICATIONS: Lidoderm patch, losartan 50 mg p.o. daily, BuSpar 7.5 mg p.o. b.i.d., Xanax 0.5 mg b.i.d., albuterol MDI 1 inhalation q.6 hours p.r.n., metoprolol tartrate 25 mg p.o. daily, tramadol 50 mg p.o. t.i.d., theophylline 300 mg p.o. daily. PHYSICAL EXAMINATION: General: This 83-year-old female was in no acute distress. No pallor, cyanosis, clubbing, or jaundice. Vital Signs: Blood pressure 95/64 mmHg. Pulse 97 beats per minute and irregularly irregular. Respirations 19 per minute. Temperature 98.4 degrees Fahrenheit. Neck: Supple. No jugular venous distention. Carotids were 2+. Upstrokes were normal. No bruits were heard, and no thyromegaly was present. Heart: No heaves or thrills. S1 was variable. S2 was split. No murmur or gallops were heard. Lungs: Clear on auscultation. Abdomen: Soft, nontender. No hepatosplenomegaly or palpable masses were felt. Extremities: No calf tenderness or dependent edema. LABORATORY DATA: CBC March 01, 2019: WBC 5300, hemoglobin 12.5 g/dL, platelet count 184,000. Chemistry March 04, 2019: mg/dL. IMPRESSION: 1. Permanent atrial fibrillation with mostly controlled ventricular response. 2. Hypertension, hypertensive cardiovascular disease, currently normotensive. 3. History of a fall with possible syncope. 4. Chronic bronchial asthma. RECOMMENDATIONS: 1. Increase ambulation. 2. Holter monitor to exclude the possibility of advanced AV block or sick sinus syndrome. 3. Followup ECG. Macey [id number]
[2019-03-04] MEDS: LIDOCAINE PATCH REMOVAL MC SCH (21:45)
[2019-03-05] MEDS: traMADol HCL 50 MG TABLET PO SCH (05:27)
[2019-03-05 06:52] VITALS: BP 119/90; PULSE 114; TEMP 97.2
[2019-03-05] MEDS ORDERED: PT OWN MED DRAWER 7, Y5N ONE (09:09)
[2019-03-05] MEDS: LIDOCAINE 5% TOPICAL PATCH TP SCH (09:13)
[2019-03-05] MEDS: APIXABAN 2.5 MG TABLET PO SCH (09:13)
[2019-03-05] MEDS: LOSARTAN POTASSIUM 50 MG TABLET (FP) PO SCH (09:13)
[2019-03-05] MEDS: ALPRAZolam 0.25 MG TABLET PO SCH (09:13)
[2019-03-05] MEDS: METOPROLOL TARTRATE 25 MG TABLET (FP) PO SCH (09:13)
[2019-03-05] MEDS: THEOPHYLLINE ANHYDROUS 100 MG CAP.ER.24H PO SCH (09:14)
[2019-03-05] MEDS: busPIRone HCL 5 MG TABLET PO SCH (09:14)
--- NOTE | 2019-03-05 09:31 | DS ---
Physical Examination Vital Signs: Vital Signs Temperature 97.2 F L 03/05/19 06:00 Pulse Rate 114 H 03/05/19 06:00 Respiratory Rate 22 H 03/05/19 06:00 Blood Pressure 119/90 03/05/19 06:00 O2 Sat by Pulse Oximetry (%) 98 03/05/19 08:55 Findings/Remarks: 83 year old female known to have Afib breast Ca and ostio arthritis Constitutional: Yes: Calm Eyes: Yes: WNL HENT: Yes: WNL Neck: Yes: WNL Cardiovascular: Yes: WNL Respiratory: Yes: WNL Gastrointestinal: Yes: Normal Bowel Sounds ...Rectal Exam: Yes: WNL, Deferred Breast(s): Yes: Left, Mass Extremities: Yes: WNL Integumentary: Yes: WNL Neurological: Yes: Alert, Unsteady Gait Psychiatric: Yes: Alert Labs: CBC, BMP 03/01/19 05:25 03/01/19 05:25 Discharge Summary Reason For Visit: SYNCOPE AND COLLAPSE Current Active Problems A-fib (Acute) Dehydration (Acute) Fall (Acute) Syncope (Acute) Condition: Stable - Instructions - Home Medications Comprehensive Discharge Medication List: Ambulatory Orders Albuterol Sulfate [Proair Respiclick] 90 mcg IH ASDIR 10/14/16 Alprazolam [Xanax Xr] 0.5 mg PO BID 10/14/16 Buspirone HCl [Buspar -] 7.5 mg PO BID 10/14/16 Irbesartan 150 mg PO DAILY 10/14/16 Lidocaine 5% Patch [Lidoderm Patch -] 1 patch TP DAILY 10/14/16 Theophylline Anhydrous [Ryder-24] 300 mg PO DAILY 10/14/16 Metoprolol Tartrate 25 mg PO DAILY 02/28/19 Tramadol HCl 50 mg PO TID 02/28/19
--- NOTE | 2019-03-05 17:05 | PN ---
Progress Note (short form) - Note Progress Note: 83-year-old white femalewas admitted after sustaining a fall and injuring her right rib cage. Long-standing history of permanent atrial fibrillation, hypertension, bronchial asthma, depression and anxiety disorder. She also has carcinoma of the right breast. Denies having chest pain or discomfort, no history of palpitations, lightheadedness, dizziness presyncope or syncope reported. Continues to tolerate her medication and is being discharged to a retirement facility for rehab. Medications: 1. Losartan 50 mg by mouth daily. 2. Eliquis 2.5 mg by mouth twice a day. 3. Xanax 0.5 mg twice a day. 4. BuSpar 7.5 mg by mouth twice a day. 5. Lopressor 25 mg by mouth daily. 6. Theophylline 300 mg by mouth daily. 7. Ultram 1 by mouth 3 times a day when necessary. 8. Lidocaine 5% patchone by mouth daily. 9. Ventolin MDI 1 inhalation every 6 hours when necessary. O:83-year-old female was in no distress, no pallor, cyanosis, clubbing or jaundice. Vital signs: Blood pressure 119/90 mmHg. Pulse 114 bpm and irregularly irregular. Respirations 22/min. Temperature 97.2F. Neck:Supple, no jugular venous distention, carotids were 2+, upstrokes were normal, no bruits were heard and no thyromegaly was present. Heart: PMI was in the fifth intercostal space, no heaves or thrills, S1 was variable, S2 was normal, no murmur or gallops were heard. Lungs: Clear on auscultation. Abdomen: Soft, nontender, no hepatosplenomegaly or palpable masses were felt. Extremities: No calf tenderness or dependent edema. Impression: 1. Permanent atrial fibrillation with periods of rapid ventricular response. 2. History of a fall without residual sequelae. 3. Hypertension, hypertensive cardiovascular disease. 4. Bronchial asthma. 5. Carcinoma of the left breast. Recommendation: 1. Patient is being discharged to retirement facility. 2. Monitor blood pressure and heart rate closely. 3. Monitor theophylline levels. Please call if follow-up is required.
== END 2019-03-05 11:46 | DRG 312 ==
LOC: JER 15:19 → JERBED 21:45 → J2W 03-01 00:20
PROVIDERS: ADMIT Internal Medicine; ATTEND Internal Medicine
DX: R55 Syncope and collapse (principal); R64 Cachexia; R07.89 Other chest pain; C50.912 Malignant neoplasm of unspecified site of left female breast; I11.9 Hypertensive heart disease without heart failure; J45.909 Unspecified asthma, uncomplicated; E86.0 Dehydration; Z68.23 Body mass index [BMI] 23.0-23.9, adult; I48.2 Chronic atrial fibrillation
CPT/HCPCS: 36415; 70450-TC; 71045-TC-FY; 71275-TC; 72125-TC; 80053; 81003; 82962; 84484; 85025; 85027; 85379; 93005; 93010; 97116-GP; 97161-GP; 99285-25; J0131

== ENCOUNTER 2019-04-27 18:11 | Emergency (ER) | payer OTHER ==
[2019-04-27 18:46] VITALS: BMI 17.2
[2019-04-27] MEDS ORDERED: ONDANSETRON 4 MG/2 ML VIAL IVPUSH ONE (20:40)
--- NOTE | 2019-04-27 20:56 | PDOC ---
History of Present Illness - General Chief Complaint: Nausea/Vomiting Stated Complaint: NAUSEA/VOMITTING Time Seen by Provider: 04/27/19 20:38 - History of Present Illness Initial Comments: 04/27/19 20:58 HPI 83 year old woman with history of OA, a-fib (eliquis), HTN, asthma breast cancer who presents with nausea, vomiting and abdominal pain for 1 week after starting tamoxifen hormonal therapy. The patient reports that she had 2 episodes of nbnb emesis yesterday and 1 episode of nbnb today. She reports intermittent periumbilical tenderness rated 10/10 over the past week as well. She reports that she had some constipation for the past few days but one episode of loose stool today. She denies any fever, chest pain, shortness of breath, dysuria, hematuria. She reports she eats a small amount because she does not like the food at [facility]. The patient was placed in [place] for muscle strengthening due to osteoarthritis on March 05 ROS GENERAL/CONSTITUTIONAL: No fever or chills. No weakness. HEAD, EYES, EARS, NOSE AND THROAT: No change in vision. No ear pain or discharge. No sore throat. CARDIOVASCULAR: No chest pain or shortness of breath RESPIRATORY: No cough, wheezing, or hemoptysis. GASTROINTESTINAL: See HPI GENITOURINARY: No dysuria, frequency, or change in urination. MUSCULOSKELETAL: See HPI SKIN: No rash NEUROLOGIC: No headache, vertigo, loss of consciousness, or change in strength/ sensation. PE GENERAL: Awake, alert, and fully oriented, in no acute distress HEAD: No signs of trauma, normocephalic, atraumatic EYES: PERRLA, EOMI, sclera anicteric, conjunctiva clear ENT: oropharynx clear without exudates. Moist mucosa NECK: Normal ROM, supple LUNGS: No distress, speaks full sentences, clear to auscultation anteriorly HEART: irregular and tachycardic rate and rhythm, normal S1 and S2, no murmurs, rubs or gallops, peripheral pulses normal and equal bilaterally. ABDOMEN: Soft, nontender, normoactive bowel sounds. No guarding, no rebound. No masses EXTREMITIES : Normal inspection, Normal range of motion, no edema. No clubbing or cyanosis. NEUROLOGICAL: Cranial nerves II through XII grossly intact. Normal speech, no focal sensorimotor deficits SKIN: Warm, Dry, normal turgor, no rashes or lesions noted MDM 83 year old woman with history of OA, a-fib (eliquis), HTN, asthma breast cancer who presents with nausea, vomiting and abdominal pain for 1 week after starting tamoxifen hormonal therapy. DDX including but not limited to: medication related nausea vs volvulus vs gastroenteritis W/U: - cbc, cmp, mg, ua, ekg, ctap TX: - zofran, ivf ED Course: EXAM: CT ABDOMEN AND PELVIS WITH CONTRAST Asymmetrically prominent left breast parenchyma, possibly due to obliquity of tissue positioning, but advise mammographic correlation. Small calcification left breast 2.7 x 1.7 x 1.3 cm stone in left renal pelvis causing minimal hydronephrosis, and additional small stone in left upper pole. Subcentimeter cortical hypodensities bilateral kidneys . No bowel obstruction, colitis, diverticulitis or free air. Appendix not seen. Unremarkable pancreas Cholelithiasis Borderline hepatomegaly Trace ascites Chronic compression fracture L1. Marked osteoarthritis left hip Tiny umbilical hernia containing fat Small right pleural effusion Small right [place] hernia containing fat Enlarged left and right atria labs wnl small uti d/c to care home with abx Patient reassessed, comfortable, no acute distress stable for discharge Bianca Peña, PGY2 Emergency Medicine Past History - Past Medical History Allergies/Adverse Reactions: Allergies Allergy/AdvReac Type Severity Reaction Status Date / Time aspirin Allergy Severe Verified 04/27/19 18:46 ibuprofen [From Motrin] Allergy Severe Verified 04/27/19 18:46 Sulfa (Sulfonamide Allergy Severe Verified 04/27/19 18:46 Antibiotics) lactose AdvReac Verified 04/27/19 18:46 Home Medications: Ambulatory Orders Albuterol Sulfate [Proair Respiclick] 90 mcg IH ASDIR 10/14/16 Alprazolam [Xanax Xr] 0.5 mg PO BID 10/14/16 Buspirone HCl [Buspar -] 7.5 mg PO BID 10/14/16 Irbesartan 150 mg PO DAILY 10/14/16 Lidocaine 5% Patch [Lidoderm -] 1 patch TP DAILY 10/14/16 Theophylline Anhydrous [Ryder-24] 300 mg PO DAILY 10/14/16 Metoprolol Tartrate 25 mg PO DAILY 02/28/19 Tramadol HCl 50 mg PO TID 02/28/19 Albuterol Sulfate Inhaler - [Ventolin HFA Inhaler -] 1 puff IH Q6H PRN inhaler 03/05/19 Apixaban [Eliquis -] 2.5 mg PO BID tablet 03/05/19 Losartan Potassium [Cozaar -] 50 mg PO DAILY tablet 03/05/19 Tamoxifen Citrate 20 mg PO DAILY 04/28/19 Theophylline Anhydrous [Ryder-24] 300 mg PO DAILY 04/28/19 levoFLOXacin [Levaquin -] 500 mg PO DAILY #6 tablet 04/28/19 Anemia: No Asthma: Yes Cancer: Yes (BREAST) Cardiac Disorders: Yes (AFIB) CVA: No COPD: No CHF: No Dementia: No Diabetes: No GI Disorders: No Disorders: No HTN: Yes Hypercholesterolemia: No Liver Disease: No Psychiatric Problems: Yes (ANXIETY) Seizures: No Thyroid Disease: No - Surgical History Abdominal Surgery: No Appendectomy: No Cardiac Surgery: No Cholecystectomy: No Lung Surgery: No Neurologic Surgery: No Orthopedic Surgery: No - Immunization History Td Vaccination: Yes TDAP Vaccination: Yes Immunization Up to Date: Yes - Suicide/Smoking/Psychosocial Hx Smoking History: Unknown if ever smoked Have you smoked in the past 12 months: No If you are a former smoker, when did you quit?: 40 years ago Information on smoking cessation initiated: No Hx Alcohol Use: No Drug/Substance Use Hx: No Substance Use Type: None Hx Substance Use Treatment: No *Physical Exam - Vital Signs Last Vital Signs Temp Pulse Resp BP Pulse Ox 98.2 F 82 16 129/82 98 04/27/19 18:11 04/27/19 18:11 04/27/19 18:11 04/27/19 18:11 04/27/19 18:11 ED Treatment Course - LABORATORY CBC & Chemistry Diagram: 04/27/19 21:30 04/27/19 21:30 *DC/Admit/Observation/Transfer Diagnosis at time of Disposition: Nausea & vomiting - Discharge Dispostion [facility]position[facility] Condition at time of disposition: Stable Decision to Admit order: No - Prescriptions Prescriptions: levoFLOXacin [Levaquin -] 500 mg PO DAILY #6 tablet - Referrals - Patient Instructions Printed Discharge Instructions: DI for Vomiting -- Adult Additional Instructions: You were seen in the ED for complaints of nausea and vomiting Your labs were largely unremarkable. There is not an immediate need for hospitalization. Please follow up with your Family Doctor within 1 week. Return to the ED immediately if you experience worsening abdominal pain, nausea , vomiting, fever, diarrhea, constipation. - Post Discharge Activity
[2019-04-27] MEDS ORDERED: ONDANSETRON 4 MG/2 ML VIAL ONE (20:58)
[2019-04-27] MEDS ORDERED: SODIUM CHLORIDE 1,000 ML IV SCH (21:30)
--- NOTE | 2019-04-27 21:49 | PDOC ---
Documentation entered by Rony Bragg SCRIBE, acting as scribe for Norma Artis MD. Norma Artis MD: This documentation has been prepared by the Yemi pearson Daniel, SCRIBE, under my direction and personally reviewed by me in its entirety. I confirm that the documentation accurately reflects all work, treatment, procedures, and medical decision making performed by me. Attending Attestation - Resident Resident Name: Bianca Peña - ED Attending Attestation I have performed the following: I have examined & evaluated the patient, The case was reviewed & discussed with the resident, I agree w/resident's findings & plan - HPI HPI: 04/27/19 20:45 The patient is an 83 year old female with a past medical history of breast cancer, afib with rvr, HTN, asthma, and severe left hip and right shoulder osteoarthritis here today from [facility] for evaluation of abdominal pain and vomiting. The patient reports that she is at [facility] for rehab of her left hip OA and notes 1 week of nausea, vomiting, and abdominal pain which she describes as behind the umbilicus, intermittent, and severe. She notes 1 episode of vomiting yesterday and 2 episodes of vomiting today. She also notes diarrhea today. Patient states that she recently had a change in medication for her cancer treatment. Patient denies headache, lightheadedness. Denies fever, chills. Denies chest pain, shortness of breath. Allergies: aspirin, ibuprofen, sulfa, lactose Oncologist: Diego Figueroa - Physicial Exam PE: 04/27/19 20:45 GENERAL: Awake, alert, and fully oriented, in no acute distress HEAD: No signs of trauma EYES: PERRLA, EOMI, sclera anicteric, conjunctiva clear ENT: Auricles normal inspection, hearing grossly normal, nares patent, oropharynx clear without exudates. Moist mucosa NECK: Normal ROM, supple, no lymphadenopathy, JVD, or masses LUNGS: Breath sounds equal, clear to auscultation bilaterally. No wheezes, and no crackles HEART: Regular rate and rhythm, normal S1 and S2, no murmurs, rubs or gallops ABDOMEN: Soft, nontender, normoactive bowel sounds. No guarding, no rebound. No masses EXTREMITIES: Normal range of motion, no edema. No clubbing or cyanosis. No cords, erythema, or tenderness NEUROLOGICAL: Cranial nerves II through XII grossly intact. Normal speech, normal gait SKIN: Warm, Dry, normal turgor, no rashes or lesions noted. - Medical Decision Making 04/27/19 21:43 Pt has no abd pain and no tenderness at this time. She has no rebound and no guarding and no distension. It seems that she has gastritis as she eats very little and she takes a great deal of meds. Afebrile VSS. Pt has no other complaints at this time. 04/28/19 00:23 Patient Name: LUCRETIA LYNNE THIS IS A PRELIMINARY REPORT FROM [facility] DATE OF SERVICE: 2019-04-27 23:32:39 IMAGES: [id number] EXAM: CT ABDOMEN AND PELVIS WITH CONTRAST Asymmetrically prominent left breast parenchyma, possibly due to obliquity of tissue positioning, but advise mammographic correlation. Small calcification left breast 2.7 x 1.7 x 1.3 cm stone in left renal pelvis causing minimal hydronephrosis, and additional small stone in left upper pole. Subcentimeter cortical hypodensities bilateral kidneys . No bowel obstruction, colitis, diverticulitis or free air. Appendix not seen. Unremarkable pancreas Cholelithiasis Borderline hepatomegaly Trace ascites Chronic compression fracture L1. Marked osteoarthritis left hip Tiny umbilical hernia containing fat Small right pleural effusion Small right Bochdalek hernia containing fat Enlarged left and right atria 04/28/19 00:25 Pt will go back to the [place]. She has no findings requiring admission.
[2019-04-27 21:51] LABS: BASO % 0.8 % (0-2.0); EOS % 2.3 % (0-4.5); HEMATOCRIT 34.6 % (32.4-45.2); HEMOGLOBIN 11.9 GM/dL (10.7-15.3); LYMPH % 21.8 % (8-40); MCH 30.9 pg (25.7-33.7); MCHC 34.3 g/dl (32.0-36.0); MEAN CELL VOLUME 90.1 fl (80-96); MEAN PLT VOLUME 9.2 fl (7.5-11.1); MONO % 7.4 % (3.8-10.2); NEUT % 67.7 % (42.8-82.8); PLATELET COUNT 234 K/MM3 (134-434); RBC 3.84 M/mm3 (3.60-5.2); RDW 14.6 % (11.6-15.6); WHITE BLOOD COUNT 6.9 K/mm3 (4.0-10.0)
[2019-04-27 22:04] LABS: INR 1.44 (0.83-1.09); PROTHROMBIN TIME (PATIENT) 17.1 SEC (9.7-13.0)
[2019-04-27 22:18] LABS: ALBUMIN 3.5 g/dl (3.4-5.0); BILIRUBIN,TOTAL 0.9 mg/dL (0.2-1); BLOOD UREA NITROGEN 18.3 mg/dL (7-18); CALCIUM 9.3 mg/dL (8.5-10.1); CREATININE 0.5 mg/dL (0.55-1.3); MAGNESIUM 1.6 mg/dL (1.8-2.4); POTASSIUM 4.7 mmol/L (3.5-5.1); TOT PROT 7.1 g/dl (6.4-8.2)
[2019-04-27] MEDS ORDERED: METOCLOPRAMIDE HCL INJECTION 10 MG/2 ML VIAL IVPB ONE (22:37)
[2019-04-27] MEDS ORDERED: METOCLOPRAMIDE HCL INJECTION 10 MG/2 ML VIAL ONE (22:48)
[2019-04-28 00:52] LABS: HYALINE CASTS 1 /lpf (0-8); URINE APPEARANCE CLEAR; URINE BACTERIA 30.5 /hpf (NEGATIVE); URINE BILIRUBIN NEGATIVE (NEGATIVE); URINE COLOR YELLOW; URINE GLUCOSE (UA) NEGATIVE (NEGATIVE); URINE KETONE 1+ (NEGATIVE); URINE LEUK ESTERASE 2+ (NEGATIVE); URINE NITRITE NEGATIVE (NEGATIVE); URINE PROTEIN NEGATIVE (NEGATIVE); URINE RBC 10 /hpf (0-4); URINE UROBILINOGEN 0.2 mg/dL (0.2-1.0); URINE WBC 52 /hpf (0-5)
[2019-04-28 01:58] VITALS: BP 115/77; PULSE 109; TEMP 98.1
== END 2019-04-28 02:30 ==
LOC: JER 18:11
PROC: 3E033GC Introduction of Other Therapeutic Substance into Peripheral Vein, Percutaneous Approach (ICD-10-PCS; principal; 2019-04-27)
PROC: 3E033GC Introduction of Other Therapeutic Substance into Peripheral Vein, Percutaneous Approach (ICD-10-PCS; 2019-04-27)
DX: R11.2 Nausea with vomiting, unspecified (principal); I48.91 Unspecified atrial fibrillation; Z79.01 Long term (current) use of anticoagulants; I10 Essential (primary) hypertension; J45.909 Unspecified asthma, uncomplicated; C50.919 Malignant neoplasm of unspecified site of unspecified female breast; M16.12 Unilateral primary osteoarthritis, left hip; M19.011 Primary osteoarthritis, right shoulder; F41.9 Anxiety disorder, unspecified
CPT/HCPCS: 36415; 74177-TC; 80053; 81003; 82009; 83605; 83735; 85025; 85610; 85730; 96374; 96375; 99284-25; J7030

== ENCOUNTER 2019-05-21 15:49 | Inpatient (IN) | payer OTHER ==
--- NOTE | 2019-05-21 16:13 | PDOC ---
History of Present Illness - General Chief Complaint: Injury Stated Complaint: FALL Time Seen by Provider: 05/21/19 16:12 History Source: Patient, Family - History of Present Illness Initial Comments: 05/21/19 20:07 84F with hx prior [place], afib on eliquis, OA, active breast CA, HTN, anxiety p/w shortness of breath after a fall at home yesterday. She reports that she was trying to get out of bed, and upon standing felt her legs give away under her. She reports catching herself on the bed and lowering herself slowly to the ground. She reports remembering the entire incident, and that since then she has had ongoing pain under her ribs. She reports that she was released from [facility] 1 week ago, and since her discharge has been intermittently short of breath. She denies any difficulty breathing, any fevers , chills, cough, fatigue. She denies any numbness, tingling generalized weakness , dizziness, vertigo, syncope or near syncope. PCP - Dr. Islas Oncologist - Dr. Figueroa Past History - Past Medical History Allergies/Adverse Reactions: Allergies Allergy/AdvReac Type Severity Reaction Status Date / Time aspirin Allergy Severe Verified 05/21/19 16:30 ibuprofen [From Motrin] Allergy Severe Verified 05/21/19 16:30 Sulfa (Sulfonamide Allergy Severe Verified 05/21/19 16:30 Antibiotics) lactose AdvReac Verified 05/21/19 16:30 Home Medications: Ambulatory Orders Albuterol Sulfate [Proair Respiclick] 90 mcg IH ASDIR 10/14/16 Alprazolam [Xanax Xr] 0.5 mg PO BID 10/14/16 Buspirone HCl [Buspar -] 7.5 mg PO BID 10/14/16 Irbesartan 150 mg PO DAILY 10/14/16 Lidocaine 5% Patch [Lidoderm -] 1 patch TP DAILY 10/14/16 Theophylline Anhydrous [Ryder-24] 300 mg PO DAILY 10/14/16 Metoprolol Tartrate 25 mg PO DAILY 02/28/19 Tramadol HCl 50 mg PO TID 02/28/19 Albuterol Sulfate Inhaler - [Ventolin HFA Inhaler -] 1 puff IH Q6H PRN inhaler 03/05/19 Apixaban [Eliquis -] 2.5 mg PO BID tablet 03/05/19 Losartan Potassium [Cozaar -] 50 mg PO DAILY tablet 03/05/19 Tamoxifen Citrate 20 mg PO DAILY 04/28/19 Theophylline Anhydrous [Ryedr-24] 300 mg PO DAILY 04/28/19 levoFLOXacin [Levaquin -] 500 mg PO DAILY #6 tablet 04/28/19 Anemia: No Asthma: Yes Cancer: Yes (BREAST) Cardiac Disorders: Yes (AFIB) CVA: No COPD: No CHF: No Dementia: No Diabetes: No GI Disorders: No Disorders: No HTN: Yes Hypercholesterolemia: No Liver Disease: No Psychiatric Problems: Yes (ANXIETY) Seizures: No Thyroid Disease: No - Surgical History Abdominal Surgery: No Appendectomy: No Cardiac Surgery: No Cholecystectomy: No Lung Surgery: No Neurologic Surgery: No Orthopedic Surgery: No - Immunization History Td Vaccination: Yes TDAP Vaccination: Yes Immunization Up to Date: Yes - Suicide/Smoking/Psychosocial Hx Smoking History: Unknown if ever smoked Have you smoked in the past 12 months: No If you are a former smoker, when did you quit?: 40 years ago Hx Alcohol Use: No Drug/Substance Use Hx: No Substance Use Type: None Hx Substance Use Treatment: No Review of Systems - Review of Systems Able to Perform ROS?: Yes Comments:: 05/21/19 20:04 ROS: GENERAL/CONSTITUTIONAL: No fever or chills. No weakness. HEAD, EYES, EARS, NOSE AND THROAT: No change in vision. No ear pain or discharge. No sore throat. CARDIOVASCULAR: Shortness of breath. No chest pain RESPIRATORY: No cough, wheezing, or hemoptysis. GASTROINTESTINAL: No nausea, vomiting, diarrhea or constipation. GENITOURINARY: No dysuria, frequency, or change in urination. MUSCULOSKELETAL: Shoulder pain, back pain, rib pain. No joint or muscle swelling. No neck pain. SKIN: No rash NEUROLOGIC: No headache, vertigo, loss of consciousness, or change in strength/ sensation. ENDOCRINE: No increased thirst. No abnormal weight change HEMATOLOGIC/LYMPHATIC: No anemia, easy bleeding, or history of blood clots. ALLERGIC/IMMUNOLOGIC: No hives or skin allergy. *Physical Exam - Physical Exam Comments: 05/21/19 20:05 PE: GENERAL: Awake, alert, and fully oriented, anxious appearing HEAD: No signs of trauma, normocephalic, atraumatic EYES: PERRLA, EOMI, sclera anicteric, conjunctiva clear ENT: Auricles normal inspection, hearing grossly normal, nares patent, oropharynx clear without exudates. Moist mucosa NECK: Normal ROM, supple, no lymphadenopathy, JVD, or masses LUNGS: No distress, speaks full sentences, clear to auscultation bilaterally HEART: Regular rate and rhythm, normal S1 and S2, no murmurs, rubs or gallops, peripheral pulses normal and equal bilaterally. ABDOMEN: Soft, nontender, normoactive bowel sounds. No guarding, no rebound. No masses EXTREMITIES : R shoulder tenderness to palpation, ROM limited by pain. Bilateral LE ROM limited by pain. Normal inspection, no edema. No clubbing or cyanosis NEUROLOGICAL: Normal speech, no focal sensorimotor deficits SKIN: Warm, Dry, normal turgor, no rashes or lesions noted Heart Score/ECG Review - History History: Slightly suspicious - Electrocardiogram EKG: Normal - Age Age: </= 45 - Risk Factors Risk Factors Heart Score: Yes Hx Hypercholesterolemia, Yes Hx Hypertension Based on the list above the patient has:: 1-2 risk factors - Troponin Troponin: </= normal limit - Score Heart Score - Total: 1 - ECG Intrepretation Rhythm: Irregularly Irregular - Oden Oden: Normal - QRS Measured at (milliseconds): 80 - ST and T Early Repolarization: No Non Specific ST-T Wave changes: No - ECG Impressions Normal ECG: No Non-specific ST Elevation: No Ischemic Changes: No Tachycardia: Afib w/controlled rate ED Treatment Course - LABORATORY CBC & Chemistry Diagram: 05/21/19 20:00 05/21/19 20:00 Medical Decision Making - Medical Decision Making 05/21/19 20:17 84 F hx afib on eliquis, severe OA, HTN p/w one week of shortness of breath, ongoing back and rib pain. Differential includes mechanical fall with residual soreness, infectious process such as pneumonia vs UTI. Plan: CBC CMP CT Head w/o contrast CT Neck w/o contrast Dispo: Pending labs, imaging --- CT notable for acute T9 fracture, as well as large bilateral pleural effusions. No rib fractures noted. 05/21/19 20:48 Lab called - Potassium 2.7. 40mg K po ordered, repeat EKG ordered 05/21/19 21:19 Admission pending eval by Dr. Islas, 05/21/19 21:56 Dr. Islas at bedside *DC/Admit/Observation/Transfer Diagnosis at time of Disposition: Fracture, Pleural effusion - Discharge Dispostion Condition at time of disposition: Stable Decision to Admit order: Yes - Referrals Referrals: Pato Islas MD [Primary Care Provider] - - Patient Instructions - Post Discharge Activity
[2019-05-21] MEDS ORDERED: ACETAMINOPHEN 500 MG TABLET (FP) PO ONE (17:04)
--- NOTE | 2019-05-21 17:30 | PDOC ---
Attending Attestation - Resident Resident Name: Anthony Turner - ED Attending Attestation I have performed the following: I have examined & evaluated the patient, The case was reviewed & discussed with the resident, I agree w/resident's findings & plan, Exceptions are as noted - HPI HPI: 05/21/19 17:31 84 yo female fell on Monday in her bedroom. She fell onto her buttocks . she has had complaints of anterior rib cage pain and some dyspnea . 05/21/19 18:42 - Physicial Exam PE: 05/21/19 18:42 frail appearing 84-year-old female sent in complaining of pain to her extremities and anterior rib cage and pleuretic chest pain and chronic joint pain She has significant arthritis. No scalp lacerations, no hematomas. Neck no midline cervical tenderness Lungs no wheezing. Decreased breath sounds CVS irregularly irregular rhythm. Abdomen flat Skin warm and dry. Musculoskeletal exam shows that she has chronic right shoulder pain with significant decreased movement, deformities of her right hip with decreased movement which is chronic, thoracic vertebral tenderness. Neuro alert and oriented and conversant 05/21/19 18:45 - Medical Decision Making 05/21/19 18:47 -this pt has a history of breast cancer, a.fib and hypertension CAT scan of the head did not show any acute intracranial bleed or infarct or skull fracture CAT scan of the chest did show large bilateral effusions, the right greater than the left and also indicated T9 fracture. This is in contrast to the CAT scan of the chest that she had 3 weeks ago, but only showed a small right pleural effusion. pt requires admission for her shortness of breath,pain control spoke w Dr Carlin, will call back w labs, Dr Islas to admit 05/21/19 19:57 EKG - shows atrial fibrillation at 96 bpm, nonspecific ST abnormalities 05/21/19 21:55 Dr Dean seen at bedside by the RN ,will admit pt's potassium only 2.7 and this was supplemented 05/21/19 21:56 imp Pleuretic chest pain , bilateral pleural effusions, T9 fracture, chronic afib
[2019-05-21] MEDS ORDERED: ACETAMINOPHEN 325 MG TABLET (FP) ONE (17:47)
[2019-05-21] MEDS ORDERED: ALPRAZolam 0.25 MG TABLET PO ONE (19:21)
[2019-05-21] MEDS ORDERED: busPIRone HCL 5 MG TABLET PO STA (19:22)
[2019-05-21] MEDS ORDERED: APIXABAN 2.5 MG TABLET PO STA (19:23)
[2019-05-21] MEDS ORDERED: ALPRAZolam 0.25 MG TABLET ONE ×2 (19:28→19:35)
[2019-05-21] MEDS ORDERED: busPIRone HCL 5 MG TABLET ONE ×2 (19:29→19:35)
[2019-05-21] MEDS ORDERED: APIXABAN 5 MG TABLET PO ONE (19:35)
[2019-05-21 20:20] LABS: BASO % 0.8 % (0-2.0); EOS % 2.3 % (0-4.5); HEMATOCRIT 29.6 % (32.4-45.2); HEMOGLOBIN 9.8 GM/dL (10.7-15.3); LYMPH % 23.9 % (8-40); MCH 30.1 pg (25.7-33.7); MCHC 33.2 g/dl (32.0-36.0); MEAN CELL VOLUME 90.8 fl (80-96); MEAN PLT VOLUME 8.4 fl (7.5-11.1); MONO % 7.1 % (3.8-10.2); NEUT % 65.9 % (42.8-82.8); PLATELET COUNT 178 K/MM3 (134-434); RBC 3.26 M/mm3 (3.60-5.2); RDW 14.7 % (11.6-15.6); WHITE BLOOD COUNT 4.3 K/mm3 (4.0-10.0)
[2019-05-21 20:43] LABS: ALBUMIN 2.7 g/dl (3.4-5.0); ALK PHOS 107 U/L (45-117); BILIRUBIN,TOTAL 0.7 mg/dL (0.2-1); BLOOD UREA NITROGEN 11.7 mg/dL (7-18); CALCIUM 7.9 mg/dL (8.5-10.1); CHLORIDE 105 mmol/L (98-107); CO2 32 mmol/L (21-32); CREATININE 0.4 mg/dL (0.55-1.3); GLUCOSE,RANDOM 103 mg/dL (74-106); SGOT/AST 19 U/L (15-37); SGPT/ALT 18 U/L (13-61); SODIUM 143 mmol/L (136-145); TOT PROT 5.4 g/dl (6.4-8.2)
[2019-05-21 20:44] LABS: ANION GAP 5 MMOL/L (8-16)
[2019-05-21 20:45] LABS: POTASSIUM 2.7 mmol/L (3.5-5.1)
[2019-05-21] MEDS ORDERED: POTASSIUM CHLORIDE ORAL LIQUID 20 MEQ/15 ML PO ONE (20:47)
[2019-05-21] MEDS ORDERED: POTASSIUM CHLORIDE ORAL LIQUID 20 MEQ/15 ML ONE (20:49)
[2019-05-21] MEDS ORDERED: LIDOCAINE 5% TOPICAL PATCH ONE (20:55)
[2019-05-21] MEDS ORDERED: LIDOCAINE 5% TOPICAL PATCH TP ONE (21:09)
[2019-05-21] MEDS ORDERED: LIDOCAINE PATCH REMOVAL MC SCH (22:00)
[2019-05-22 01:52] LABS: EPI CELLS 12.1 /HPF (0-5/HPF); HYALINE CASTS 5 /lpf (0-8); PH,URINE 6.5 (5.0-8.0); URINE APPEARANCE CLOUDY; URINE BACTERIA 43.5 /hpf (NEGATIVE); URINE BILIRUBIN NEGATIVE (NEGATIVE); URINE COLOR YELLOW; URINE GLUCOSE (UA) NEGATIVE (NEGATIVE); URINE KETONE NEGATIVE (NEGATIVE); URINE LEUK ESTERASE TRACE (NEGATIVE); URINE NITRITE NEGATIVE (NEGATIVE); URINE PROTEIN 1+ (NEGATIVE); URINE RBC 454 /hpf (0-4); URINE WBC 6 /hpf (0-5)
[2019-05-22] MEDS ORDERED: ALBUTEROL SO4 8 GM HFA INHALER IH PRN (02:26)
[2019-05-22] MEDS: traMADol HCL 50 MG TABLET PO PRN ×3 (04:25→22:37)
[2019-05-22 08:29] LABS: BASO % 0.4 % (0-2.0); EOS % 3.1 % (0-4.5); HEMATOCRIT 28.1 % (32.4-45.2); HEMOGLOBIN 9.5 GM/dL (10.7-15.3); LYMPH % 27.9 % (8-40); MCH 30.4 pg (25.7-33.7); MCHC 33.8 g/dl (32.0-36.0); MEAN PLT VOLUME 8.9 fl (7.5-11.1); MONO % 6.5 % (3.8-10.2); NEUT % 62.1 % (42.8-82.8); PLATELET COUNT 165 K/MM3 (134-434); RBC 3.12 M/mm3 (3.60-5.2); RDW 14.8 % (11.6-15.6); WHITE BLOOD COUNT 3.8 K/mm3 (4.0-10.0)
[2019-05-22 09:02] LABS: ALBUMIN 2.7 g/dl (3.4-5.0); BILIRUBIN,TOTAL 0.6 mg/dL (0.2-1); BLOOD UREA NITROGEN 11.5 mg/dL (7-18); CALCIUM 7.9 mg/dL (8.5-10.1); CREATININE 0.4 mg/dL (0.55-1.3); TOT PROT 5.4 g/dl (6.4-8.2)
[2019-05-22 09:29] LABS: POTASSIUM 2.9 mmol/L (3.5-5.1)
[2019-05-22] MEDS ORDERED: LIDOCAINE 5% TOPICAL PATCH TP SCH (10:00)
[2019-05-22] MEDS ORDERED: traMADol HCL 50 MG TABLET PO SCH (10:00)
--- NOTE | 2019-05-22 10:42 | HP ---
DATE OF ADMISSION: 05/21/2019 DATE OF DICTATION: 05/22/2019 HISTORY OF PRESENT ILLNESS: This is an 84-year-old female known to me for many years was brought to the ER yesterday by her son with the complaints of short of breath and also back pain and ribcage pain on the right side. She had fallen in the bathroom last Monday. She is also known to have atrial fibrillation on Eliquis, also has left breast cancer being followed by Dr. Figueroa. PHYSICAL EXAMINATION General: This morning, the patient is more comfortable. She is not having any short of breath. Her blood pressure is 130/70, respiration is 24, pulse 100, temperature 98. HEENT: Unremarkable. Neck: Supple, no JVD. Lungs: Bibasilar rales present. Breath sounds reduced on the right side. Heart: S1, S2 normal, no S3, S4. Abdomen: Soft. Breast: Left breast mass present around the nipple area. Extremities: Legs: No edema. Neurologic: Grossly normal. Chest x-ray showed large pleural effusion right side, minimal effusion on the left. CT of the chest showed compression fracture vertebra. Ribs no fracture. LABORATORY REPORTS: WBC 3.8, hemoglobin 9.5, hematocrit 28. Chemistry: Sodium 143, potassium 2.9, chloride 105, BUN 11, creatinine 0.4, blood sugar 107, calcium 7.9, albumin 2.7. IMPRESSION: 1. Congestive heart failure. 2. Fracture vertebra. 3. Cancer of the breast. 4. Osteoarthritis. PLAN: Continue her present medications. IV Lasix. Replace potassium. Cardiology consult, Dr. Mejia. Oncology consult, Dr. Figueroa. Macey [id number]
[2019-05-22] MEDS: METOPROLOL TARTRATE 25 MG TABLET (FP) PO SCH (10:44)
[2019-05-22] MEDS: busPIRone HCL 5 MG TABLET PO SCH ×2 (10:44→21:23)
[2019-05-22] MEDS: APIXABAN 2.5 MG TABLET PO SCH ×2 (10:44→21:24)
[2019-05-22] MEDS: LOSARTAN POTASSIUM 50 MG TABLET (FP) PO SCH (10:44)
[2019-05-22] MEDS: ALPRAZolam 0.25 MG TABLET PO SCH ×2 (10:45→21:23)
--- NOTE | 2019-05-22 11:27 | EKG ---
Test Reason : Blood Pressure : / mmHG Vent. Rate : 090 BPM Atrial Rate : 147 BPM P-R Int : 000 ms QRS Dur : 080 ms QT Int : 372 ms P-R-T Axes : 000 067 017 degrees QTc Int : 455 ms ATRIAL FIBRILLATION WITH PREMATURE VENTRICULAR OR ABERRANTLY CONDUCTED COMPLEXES ANTERIOR INFARCT , AGE UNDETERMINED ABNORMAL ECG WHEN COMPARED WITH ECG OF 28-FEB-2019 17:48, ANTERIOR INFARCT IS NOW PRESENT NONSPECIFIC T WAVE ABNORMALITY NOW EVIDENT IN ANTERIOR LEADS NONSPECIFIC T WAVE ABNORMALITY NO LONGER EVIDENT IN LATERAL LEADS Confirmed by MAKSIM LUTZ, KARTHIKEYAN ([id number]) on 05/22/2019 11:27:09 AM Referred By: Confirmed By:KARTHIKEYAN SCHAEFFER MD
--- NOTE | 2019-05-22 11:28 | EKG ---
Test Reason : Blood Pressure : / mmHG Vent. Rate : 096 BPM Atrial Rate : 105 BPM P-R Int : 000 ms QRS Dur : 082 ms QT Int : 364 ms P-R-T Axes : 000 070 060 degrees QTc Int : 459 ms POOR DATA QUALITY, INTERPRETATION MAY BE ADVERSELY AFFECTED ATRIAL FIBRILLATION NONSPECIFIC ST ABNORMALITY ABNORMAL ECG WHEN COMPARED WITH ECG OF 28-FEB-2019 17:48, NO SIGNIFICANT CHANGE WAS FOUND Confirmed by MAKSIM LUTZ, KARTHIKEYAN ([id number]) on 05/22/2019 11:28:17 AM Referred By: Confirmed By:KARTHIKEYAN SCHAEFFER MD
[2019-05-22] MEDS: POTASSIUM CHLORIDE TABS 20 MEQ TABLET.ER (FP) PO SCH ×3 (11:35→21:23)
[2019-05-22] MEDS: FUROSEMIDE 40 MG/4 ML INJECTABLE VIAL IVPB SCH (12:02)
[2019-05-22 13:53] LABS: CALCIUM 7.6 mg/dL (8.5-10.1); CREATININE 0.4 mg/dL (0.55-1.3); MAGNESIUM 1.4 mg/dL (1.8-2.4); POTASSIUM 3.2 mmol/L (3.5-5.1)
[2019-05-22] MEDS: MAGNESIUM OXIDE 400 MG TABLET (FP) PO SCH (17:00)
[2019-05-22] MEDS: LIDOCAINE 5% TOPICAL PATCH TP SCH (20:36)
[2019-05-23] MEDS: traMADol HCL 50 MG TABLET PO PRN (06:10)
--- NOTE | 2019-05-23 08:19 | CONSULT ---
Consult - Alcohol/Substance Use Hx Alcohol Use: No - Smoking History Smoking history: Former smoker Have you smoked in the past 12 months: No If you are a former smoker, when did you quit?: 1939 Home Medications - Allergies Allergies/Adverse Reactions: Allergies Allergy/AdvReac Type Severity Reaction Status Date / Time aspirin Allergy Severe Verified 05/21/19 16:30 ibuprofen [From Motrin] Allergy Severe Verified 05/21/19 16:30 Sulfa (Sulfonamide Allergy Severe Verified 05/21/19 16:30 Antibiotics) lactose AdvReac Verified 05/21/19 16:30 - Home Medications Home Medications: Ambulatory Orders Alprazolam [Xanax Xr] 0.5 mg PO BID 10/14/16 Buspirone HCl [Buspar -] 7.5 mg PO BID 10/14/16 Irbesartan 150 mg PO DAILY 10/14/16 Lidocaine 5% Patch [Lidoderm -] 1 patch TP DAILY 10/14/16 Theophylline Anhydrous [Ryder-24] 300 mg PO DAILY 10/14/16 Metoprolol Tartrate 25 mg PO DAILY 02/28/19 Tramadol HCl 50 mg PO PRN 02/28/19 Apixaban [Eliquis -] 2.5 mg PO BID tablet 03/05/19 Losartan Potassium [Cozaar -] 50 mg PO DAILY tablet 03/05/19 Tamoxifen Citrate 20 mg PO DAILY 04/28/19 Theophylline Anhydrous [Ryder-24] 300 mg PO HS 04/28/19 levoFLOXacin [Levaquin -] 500 mg PO DAILY #6 tablet 04/28/19 Albuterol Sulfate [Proair Hfa] 2 puff IH QID PRN 05/22/19 Physical Exam Vital Signs: Vital Signs Temperature 98.2 F 05/23/19 06:55 Pulse Rate 107 H 05/23/19 06:55 Respiratory Rate 20 05/23/19 06:55 Blood Pressure 139/72 05/23/19 06:55 O2 Sat by Pulse Oximetry (%) 98 05/22/19 21:00 Labs: CBC, BMP 05/22/19 07:10 05/22/19 13:00 Assessment/Plan Patient seen and examined Admitted after fall and with rib cage pains History of ER+, MS+ , 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 Initial trial of letrozole. Patient discontinued after a short period because she felt it was exacerbating her chronic right shoulder pains. In March , at [facility] , I prescribed tamoxifen. Patient told me she stopped this because of nausea and dry heaves. In essence , she has not been treated for her breast cancer . She also has never been seen at the office. All her treatments have been on an in hospital basis. PMH HBP, Atrial fib, breast ca ROS denies headaches, diplopia, epistaxis, dysphagia, has ribcage pains, some SOB, no significant cough, had diarrhea x 1 day one week earlier, otherwise without nausea, emesis, diarrhea, constipation, denies dysuria, hematuria, , right shoulder and diffuse musculoskeletal pains Last Vital Signs Temp Pulse Resp BP Pulse Ox 98.2 F 107 H 20 139/72 98 05/23/19 06:55 05/23/19 06:55 05/23/19 06:55 05/23/19 06:55 05/22/19 21:00 HEENT: PAPI, EOM Intact Oropharynx: No thrush, No mucositisupper denture; poor dentition with one tooth lowers Neck: Supple Nodes: adenopathy with multiple left axillary nodes Breasts: left breast teri-areolar mass Cor: atrial fib Lungs: diminished breath sounds bilaterally Abd: Soft, Normal bowel sounds, No organomegaly Ext:No significant edema Skin: No rashes, Integument intact CBC, BMP 05/22/19 07:10 05/22/19 13:00 Current Medications Generic Name Dose Route Start Last Admin Trade Name Freq PRN Reason Stop Dose Admin Albuterol Sulfate 1 amp 05/22/19 16:06 Ventolin 0.083% Nebulizer Soln - NEB Q6H PRN SHORT OF BREATH/WHEEZING Alprazolam 0.5 mg 05/22/19 10:00 05/22/19 21:23 Xanax - PO 0.5 mg BID KELLY Administration Apixaban 2.5 mg 05/22/19 10:00 05/22/19 21:24 Eliquis - PO 2.5 mg BID KELLY Administration Buspirone HCl 7.5 mg 05/22/19 10:00 05/22/19 21:23 Buspar - PO 7.5 mg BID KELLY Administration Furosemide 40 mg 05/22/19 10:00 05/22/19 12:02 Lasix Injection - IVPB Not Given DAILY KELLY Lidocaine 1 patch 05/22/19 20:00 05/22/19 20:36 Lidoderm Patch - TP 1 patch DAILY@1999 KELLY Administration Losartan Potassium 50 mg 05/22/19 10:00 05/22/19 10:44 Cozaar - PO 50 mg DAILY KELLY Administration Magnesium Oxide 400 mg 05/22/19 16:15 05/22/19 17:00 Mag-Ox - PO 05/23/19 10:01 400 mg DAILY KELLY Administration Metoprolol Tartrate 25 mg 05/22/19 10:00 05/22/19 10:44 Lopressor - PO 25 mg DAILY KELLY Administration Miscellaneous 1 each 05/23/19 08:00 Lidoderm Patch Removal MC DAILY@0800 KELLY Potassium Chloride 20 meq 05/22/19 10:00 05/22/19 21:23 K-Dur - PO 20 meq BID KELLY Administration Potassium Chloride 20 meq 05/22/19 16:00 05/22/19 17:00 K-Dur - PO 20 meq DAILY KELLY Administration Tramadol HCl 50 mg 05/22/19 04:17 05/23/19 06:10 Ultram - PO 50 mg Q8H PRN Administration PAIN 6-10 Impression: s/p fall with rib fracture CT with right > left pleural effusions--progressive in nature over past 2-3 months Chronic right shoulder pains and musculoskeletal pains Atrial fib Anticoagulation ER+, MS+, her- 2 - negative breast ca - currently on no therapy Consider thoracentesis bone scan will need to evaluate disease management in this frail lady who has never made it to the office and has not tolerated an aromatase inhibitor nor tamoxifen therapy. -
--- NOTE | 2019-05-23 09:50 | PN ---
Progress Note, Physician Chief Complaint: Feels better History of Present Illness: bhavik Piedra oncology consult appreciated - Current Medication List Current Medications: Active Medications Albuterol Sulfate (Ventolin 0.083% Nebulizer Soln -) 1 amp NEB Q6H PRN PRN Reason: SHORT OF BREATH/WHEEZING Alprazolam (Xanax -) 0.5 mg PO BID [facility] Last Admin: 05/22/19 21:23 Dose: 0.5 mg Apixaban (Eliquis -) 2.5 mg PO BID [facility] Last Admin: 05/22/19 21:24 Dose: 2.5 mg Buspirone HCl (Buspar -) 7.5 mg PO BID [facility] Last Admin: 05/22/19 21:23 Dose: 7.5 mg Furosemide (Lasix Injection -) 40 mg IVPB DAILY [facility] Last Admin: 05/22/19 12:02 Dose: Not Given Lidocaine (Lidoderm Patch -) 1 patch TP DAILY@1999 [facility] Last Admin: 05/22/19 20:36 Dose: 1 patch Losartan Potassium (Cozaar -) 50 mg PO DAILY [facility] Last Admin: 05/22/19 10:44 Dose: 50 mg Magnesium Oxide (Mag-Ox -) 400 mg PO DAILY [facility] Stop: 05/23/19 10:01 Last Admin: 05/22/19 17:00 Dose: 400 mg Metoprolol Tartrate (Lopressor -) 25 mg PO DAILY [facility] Last Admin: 05/22/19 10:44 Dose: 25 mg Miscellaneous (Lidoderm Patch Removal) 1 each MC DAILY@0800 [facility] Potassium Chloride (K-Dur -) 20 meq PO BID [facility] Last Admin: 05/22/19 21:23 Dose: 20 meq Potassium Chloride (K-Dur -) 20 meq PO DAILY [facility] Last Admin: 05/22/19 17:00 Dose: 20 meq Tramadol HCl (Ultram -) 50 mg PO Q8H PRN PRN Reason: PAIN 6-10 Last Admin: 05/23/19 06:10 Dose: 50 mg - Objective Vital Signs: Vital Signs Temperature 98.2 F 05/23/19 06:55 Pulse Rate 107 H 05/23/19 06:55 Respiratory Rate 20 05/23/19 06:55 Blood Pressure 139/72 05/23/19 06:55 O2 Sat by Pulse Oximetry (%) 98 05/22/19 21:00 Constitutional: Yes: Anxious Eyes: Yes: WNL HENT: Yes: WNL Neck: Yes: WNL Cardiovascular: Yes: WNL Respiratory: Yes: Poor Air Entry Gastrointestinal: Yes: WNL Genitourinary: Yes: WNL Breast(s): Yes: Other (Mass Lt breast) Labs: CBC, BMP 05/22/19 07:10 05/22/19 13:00 Assessment/Plan Aspirate pleural fluid
--- NOTE | 2019-05-23 10:39 | PN ---
Progress Note (short form) - Note Progress Note: 84-year-old, white female with history of permanent atrial fibrillation, hypertension, bronchial asthma since childhood, history of depression-anxiety disorder, intentional tremors, history of left breast carcinoma. complaining of right chest wall pain, no SOB reported. ALLERGIES: SULFA., Aspirin, Ibuprofen, Lactose Active Medications Albuterol Sulfate (Ventolin 0.083% Nebulizer Soln -) 1 amp NEB Q6H PRN PRN Reason: SHORT OF BREATH/WHEEZING Alprazolam (Xanax -) 0.5 mg PO BID [facility] Last Admin: 05/22/19 21:23 Dose: 0.5 mg Apixaban (Eliquis -) 2.5 mg PO BID [facility] Last Admin: 05/22/19 21:24 Dose: 2.5 mg Buspirone HCl (Buspar -) 7.5 mg PO BID [facility] Last Admin: 05/22/19 21:23 Dose: 7.5 mg Furosemide (Lasix Injection -) 40 mg IVPB DAILY [facility] Last Admin: 05/22/19 12:02 Dose: Not Given Lidocaine (Lidoderm Patch -) 1 patch TP DAILY@1999 [facility] Last Admin: 05/22/19 20:36 Dose: 1 patch Losartan Potassium (Cozaar -) 50 mg PO DAILY [facility] Last Admin: 05/22/19 10:44 Dose: 50 mg Metoprolol Tartrate (Lopressor -) 25 mg PO DAILY [facility] Last Admin: 05/22/19 10:44 Dose: 25 mg Miscellaneous (Lidoderm Patch Removal) 1 each MC DAILY@0800 [facility] Potassium Chloride (K-Dur -) 20 meq PO BID [facility] Last Admin: 05/22/19 21:23 Dose: 20 meq Potassium Chloride (K-Dur -) 20 meq PO DAILY [facility] Last Admin: 05/22/19 17:00 Dose: 20 meq Tramadol HCl (Ultram -) 50 mg PO Q8H PRN PRN Reason: PAIN 6-10 Last Admin: 05/23/19 06:10 Dose: 50 mg EXAMINATION: General: 84-year-old female who is in no acute distress. . Last Vital Signs Temp Pulse Resp BP Pulse Ox 98.3 F 109 H 20 149/85 98 05/23/19 14:00 05/23/19 14:00 05/23/19 14:00 05/23/19 14:00 05/23/19 09:00 05/20/19 05/21/19 05/22/19 05/23/19 23:59 23:59 23:59 23:59 Intake Total 360 40 Output Total 1200 Balance -840 40 Weight 49.442 kg Neck: Supple. No jugular venous distention. Carotids were 2+, upstrokes were normal. No bruits were heard and no thyromegaly was present. Heart: PMI is in the 5th intercostal space. No heaves or thrills. S1 and S2 were normal. Ejection systolic murmur grade I/ was heard along the left sternal border and right intercostal space. No diastolic murmur or gallops were heard. Lungs: Clear on auscultation. Chest: Tenderness involving the right lower lateral ribs on palpation. Abdomen: Soft, nontender. No hepatosplenomegaly or palpable masses were felt. Bowel sounds were heard. Extremities: No calf tenderness or dependent edema. Femoral pulses were 2+, dorsalis pedis pulses were 1-2+, posterior tibial pulses could not be palpated. CBC, BMP 05/22/19 07:10 05/22/19 13:00 Mg. 1.4 mg/dl. IMPRESSION: 1. Hypertension, hypertensive cardiovascular disease; currently normotensive. 2. Bilateral pleural effusions, as recorded on CT scan. Etiology: a. Congestive heart failure. b. Possibility of malignant effusion needs to be excluded. 3. Permanent atrial fibrillation. 4. History of fall with bruising of the right lower ribcage. 5. Compression fracture of T9. 6. Intentional tremors. 7. Chronic bronchial asthma. 8. Hypokalemia. 9. Hypomagnesemia. RECOMMENDATIONS: 1. Correction of serum potassium in progress. 2. Replacement of magnesium 3. May need additional K+. MISTY WOODARD M.D.
[2019-05-23] MEDS: ALPRAZolam 0.25 MG TABLET PO SCH ×2 (10:50→21:59)
[2019-05-23] MEDS: LOSARTAN POTASSIUM 50 MG TABLET (FP) PO SCH (10:51)
[2019-05-23] MEDS: busPIRone HCL 5 MG TABLET PO SCH ×2 (10:51→21:59)
[2019-05-23] MEDS: MAGNESIUM OXIDE 400 MG TABLET (FP) PO SCH (10:51)
[2019-05-23] MEDS: FUROSEMIDE 40 MG/4 ML INJECTABLE VIAL IVPB SCH (10:51)
[2019-05-23] MEDS: POTASSIUM CHLORIDE TABS 20 MEQ TABLET.ER (FP) PO SCH ×2 (10:51→10:53)
[2019-05-23] MEDS: LIDOCAINE PATCH REMOVAL MC SCH (10:52)
[2019-05-23] MEDS: METOPROLOL TARTRATE 25 MG TABLET (FP) PO SCH (10:53)
[2019-05-23] MEDS: LIDOCAINE 5% TOPICAL PATCH TP SCH (20:52)
[2019-05-24] MEDS: traMADol HCL 50 MG TABLET PO PRN ×2 (05:40→17:30)
--- NOTE | 2019-05-24 09:15 | PN ---
Progress Note, Physician History of Present Illness: Scheduled for [facility] [place] - Current Medication List Current Medications: Active Medications Albuterol Sulfate (Ventolin 0.083% Nebulizer Soln -) 1 amp NEB Q6H PRN PRN Reason: SHORT OF BREATH/WHEEZING Alprazolam (Xanax -) 0.5 mg PO BID [facility] Last Admin: 05/23/19 21:59 Dose: 0.5 mg Buspirone HCl (Buspar -) 7.5 mg PO BID [facility] Last Admin: 05/23/19 21:59 Dose: 7.5 mg Furosemide (Lasix Injection -) 40 mg IVPB DAILY [facility] Last Admin: 05/23/19 10:51 Dose: 40 mg Lidocaine (Lidoderm Patch -) 1 patch TP DAILY@2000 [facility] Last Admin: 05/23/19 20:52 Dose: 1 patch Losartan Potassium (Cozaar -) 50 mg PO DAILY [facility] Last Admin: 05/23/19 10:51 Dose: 50 mg Metoprolol Tartrate (Lopressor -) 25 mg PO DAILY [facility] Last Admin: 05/23/19 10:53 Dose: 25 mg Miscellaneous (Lidoderm Patch Removal) 1 each MC DAILY@0800 [facility] Last Admin: 05/23/19 10:52 Dose: 1 each Potassium Chloride (K-Dur -) 20 meq PO DAILY [facility] Last Admin: 05/23/19 10:53 Dose: Not Given Tramadol HCl (Ultram -) 50 mg PO Q8H PRN PRN Reason: PAIN 6-10 Last Admin: 05/24/19 05:40 Dose: 50 mg - Objective Vital Signs: Vital Signs Temperature 99.0 F 05/24/19 06:26 Pulse Rate 115 H 05/24/19 06:26 Respiratory Rate 20 05/24/19 06:26 Blood Pressure 133/73 05/24/19 06:26 O2 Sat by Pulse Oximetry (%) 96 05/23/19 21:00 Constitutional: Yes: Calm Eyes: Yes: WNL HENT: Yes: WNL Neck: Yes: WNL Cardiovascular: Yes: WNL Respiratory: Yes: WNL ...Rectal Exam: Yes: Deferred Genitourinary: Yes: WNL Breast(s): Yes: WNL Musculoskeletal: Yes: Muscle Weakness Edema: No Integumentary: Yes: WNL Neurological: Yes: Alert Labs: CBC, BMP 05/22/19 07:10 05/22/19 13:00 Assessment/Plan DNR ordered
[2019-05-24 09:31] LABS: INR 1.22 (0.83-1.09); PROTHROMBIN TIME (PATIENT) 14.4 SEC (9.7-13.0)
[2019-05-24] MEDS: LOSARTAN POTASSIUM 50 MG TABLET (FP) PO SCH (09:57)
[2019-05-24] MEDS: FUROSEMIDE 40 MG/4 ML INJECTABLE VIAL IVPB SCH (09:58)
[2019-05-24] MEDS: ALPRAZolam 0.25 MG TABLET PO SCH ×2 (09:58→22:14)
[2019-05-24] MEDS: METOPROLOL TARTRATE 25 MG TABLET (FP) PO SCH (09:58)
[2019-05-24] MEDS: busPIRone HCL 5 MG TABLET PO SCH ×2 (09:59→22:14)
[2019-05-24] MEDS: LIDOCAINE PATCH REMOVAL MC SCH (09:59)
[2019-05-24] MEDS: POTASSIUM CHLORIDE TABS 20 MEQ TABLET.ER (FP) PO SCH (09:59)
--- NOTE | 2019-05-24 14:31 | PN ---
Progress Note (short form) - Note Progress Note: 84-year-old, white female with history of permanent atrial fibrillation, hypertension, bronchial asthma since childhood, history of depression-anxiety disorder, intentional tremors, history of left breast carcinoma. complaining of right chest wall pain, no SOB reported. ALLERGIES: SULFA., Aspirin, Ibuprofen, Lactose Active Medications Albuterol Sulfate (Ventolin 0.083% Nebulizer Soln -) 1 amp NEB Q6H PRN PRN Reason: SHORT OF BREATH/WHEEZING Alprazolam (Xanax -) 0.5 mg PO BID [facility] Last Admin: 05/24/19 09:58 Dose: 0.5 mg Buspirone HCl (Buspar -) 7.5 mg PO BID [facility] Last Admin: 05/24/19 09:59 Dose: 7.5 mg Furosemide (Lasix Injection -) 40 mg IVPB DAILY [facility] Last Admin: 05/24/19 09:58 Dose: 40 mg Lidocaine (Lidoderm Patch -) 1 patch TP DAILY@1999 [facility] Last Admin: 05/23/19 20:52 Dose: 1 patch Losartan Potassium (Cozaar -) 50 mg PO DAILY [facility] Last Admin: 05/24/19 09:57 Dose: 50 mg Metoprolol Tartrate (Lopressor -) 25 mg PO DAILY [facility] Last Admin: 05/24/19 09:58 Dose: 25 mg Miscellaneous (Lidoderm Patch Removal) 1 each MC DAILY@0800 [facility] Last Admin: 05/24/19 09:59 Dose: 1 each Potassium Chloride (K-Dur -) 20 meq PO DAILY [facility] Last Admin: 05/24/19 09:59 Dose: Not Given Tramadol HCl (Ultram -) 50 mg PO Q8H PRN PRN Reason: PAIN 6-10 Last Admin: 05/24/19 05:40 Dose: 50 mg EXAMINATION: General: 84-year-old female who is in no acute distress. Last Vital Signs Temp Pulse Resp BP Pulse Ox 99.0 F 115 H 20 133/73 96 05/24/19 06:26 05/24/19 06:26 05/24/19 06:26 05/24/19 06:26 05/23/19 21:00 Intake & Output 05/21/19 05/22/19 05/23/19 05/24/19 23:59 23:59 23:59 23:59 Intake Total 360 265 240 Output Total 1200 Balance -840 265 240 Weight 49.442 kg Neck: Supple. No jugular venous distention. Carotids were 2+, upstrokes were normal. No bruits were heard and no thyromegaly was present. Heart: PMI is in the 5th intercostal space. No heaves or thrills. S1 and S2 were normal. Ejection systolic murmur grade I/ was heard along the left sternal border and right intercostal space. No diastolic murmur or gallops were heard. Lungs: Clear on auscultation. Chest: Tenderness involving the right lower lateral ribs on palpation. Abdomen: Soft, nontender. No hepatosplenomegaly or palpable masses were felt. Bowel sounds were heard. Extremities: No calf tenderness or dependent edema. Femoral pulses were 2+, dorsalis pedis pulses were 1-2+, posterior tibial pulses could not be palpated. CBC, BMP 05/22/19 07:10 05/22/19 13:00 IMPRESSION: 1. Hypertension, hypertensive cardiovascular disease; currently normotensive. 2. Bilateral pleural effusions, as recorded on CT scan. Etiology: a. Congestive heart failure. b. Possibility of malignant effusion needs to be excluded. 3. Permanent atrial fibrillation. 4. History of fall with bruising of the right lower ribcage. 5. Compression fracture of T9. 6. Intentional tremors. 7. Chronic bronchial asthma. 8. Hypokalemia. 9. Hypomagnesemia. RECOMMENDATIONS: 1. Correction of serum potassium in progress. 2. Replacement of magnesium 3. May need additional K+. MISTY WOODARD M.D.
[2019-05-24] MEDS ORDERED: MAGNESIUM SULF 50% (8.12 MEQ/2 ML-1 GM VIAL) IVPB ONE (18:56)
[2019-05-24] MEDS ORDERED: POTASSIUM CHLORIDE TABS 20 MEQ TABLET.ER (FP) PO ONE (18:57)
--- NOTE | 2019-05-24 19:10 | RAPID ---
Physical Examination Vital Signs: Vital Signs Temperature 98.2 F 05/24/19 14:57 Pulse Rate 94 H 05/24/19 14:57 Respiratory Rate 18 05/24/19 14:57 Blood Pressure 111/68 05/24/19 14:57 O2 Sat by Pulse Oximetry (%) 96 05/23/19 21:00 Labs: CBC, BMP 05/22/19 07:10 05/22/19 13:00 Rapid Response - Rapid Response Assessment: RR called at 17:49 to 6 south for CP, SOB. Rapid response team arrived immediately. Pt found sitting in bed AOx3 on 3L NC. She reports band like CP and SOB. Vital signs significant for mild elevated BP and tachycardia: BP 141/75 , HR 107, O2 sat 96%. Mg and K repleated. CXR, EKG, and trop ordered
[2019-05-24] MEDS: ALBUTEROL SO4 0.083% IH SOL 2.5 MG/3 ML VIAL.NEB. NEB PRN (19:13)
[2019-05-24] MEDS: LIDOCAINE 5% TOPICAL PATCH TP SCH (20:01)
--- NOTE | 2019-05-24 20:28 | PN ---
Progress Note (short form) - Note Progress Note: PAtient seen and examined Denies any complaints rapid response earloies for SOB -- CXR rt. base effusion/atelectasis AFVSS Cor: RSR, No murmurs, No gallops Lungs: decreased at bases Abd: Soft, Normal bowel sounds, No organomegaly Ext:No significant edema Labs/MEds reviewed A/P 84 y/o patient with metastatic breast cancer, noncompliant b/l pleural effusion right> left on lasix acute T9 fx lidoderm patch considering faslodex outpatient
--- NOTE | 2019-05-25 07:43 | PN ---
Progress Note, Physician Chief Complaint: C/O chest wall pain History of Present Illness: 84-year-old, white female with history o ppermanent atrial fibrillation, hypertension, bronchial asthma since childhood, history of depression-anxiety disorder, intentional tremors, history of left breast carcinoma.complaining of right chest wall pain, no SOB reported. - Current Medication List Current Medications: Active Medications Albuterol Sulfate (Ventolin 0.083% Nebulizer Soln -) 1 amp NEB Q6H PRN PRN Reason: SHORT OF BREATH/WHEEZING Last Admin: 05/24/19 19:13 Dose: 1 amp Alprazolam (Xanax -) 0.5 mg PO BID [facility] Last Admin: 05/24/19 22:14 Dose: 0.5 mg Buspirone HCl (Buspar -) 7.5 mg PO BID [facility] Last Admin: 05/24/19 22:14 Dose: 7.5 mg Furosemide (Lasix Injection -) 40 mg IVPB DAILY [facility] Last Admin: 05/24/19 09:58 Dose: 40 mg Lidocaine (Lidoderm Patch -) 1 patch TP DAILY@1999 [facility] Last Admin: 05/24/19 20:01 Dose: 1 patch Losartan Potassium (Cozaar -) 50 mg PO DAILY [facility] Last Admin: 05/24/19 09:57 Dose: 50 mg Metoprolol Tartrate (Lopressor -) 25 mg PO DAILY [facility] Last Admin: 05/24/19 09:58 Dose: 25 mg Miscellaneous (Lidoderm Patch Removal) 1 each MC DAILY@0800 [facility] Last Admin: 05/24/19 09:59 Dose: 1 each Potassium Chloride (K-Dur -) 20 meq PO DAILY [facility] Last Admin: 05/24/19 09:59 Dose: Not Given - Objective Vital Signs: Vital Signs Temperature 98.2 F 05/25/19 06:00 Pulse Rate 100 H 05/25/19 06:00 Respiratory Rate 18 05/25/19 06:00 Blood Pressure 105/61 05/25/19 06:00 O2 Sat by Pulse Oximetry (%) 96 05/24/19 21:00 elderly F not in distress c/o Rt Chest wall pain HEENT: Mm moist, no anemia NECK: No JVD No Bruit CHEST: Basal crepts Tens + CVS: S1S@ Irr no m/g/r ABD: No distention, non tender EXT: Buttock hematoma no LE swelling Pulses + [employer] SPECIALIST: AOX3 non focal Labs: CBC, BMP 05/22/19 07:10 05/22/19 13:00 INR, PTT INR 1.22 (0.83-1.09) H 05/24/19 08:00 Problem List - Problems (1) Fall Assessment/Plan: nmecahnical no acute fracture pain control Code(s): W19.XXXA - UNSPECIFIED FALL, INITIAL ENCOUNTER Qualifiers: Encounter type: initial encounter Qualified Code(s): W19.XXXA - Unspecified fall, initial encounter (2) A-fib Assessment/Plan: Rate controlled on apxiban Code(s): I48.91 - UNSPECIFIED ATRIAL FIBRILLATION (3) Pleural effusion Assessment/Plan: can be due to CHF F/U cardiology recommondation Code(s): J90 - PLEURAL EFFUSION, NOT ELSEWHERE CLASSIFIED (4) Hypokalemia Assessment/Plan: Repleted will F/U BMP Code(s): E87.6 - HYPOKALEMIA (5) Hypomagnesemia Assessment/Plan: Repleted will F/U BMP Code(s): E83.42 - HYPOMAGNESEMIA (6) Carcinoma of breast Assessment/Plan: F/U Oncology recommondations Code(s): C50.919 - MALIGNANT NEOPLASM OF UNSP SITE OF UNSPECIFIED FEMALE BREAST
[2019-05-25 10:18] LABS: BASO % 0.5 % (0-2.0); EOS % 5.8 % (0-4.5); HEMATOCRIT 33.4 % (32.4-45.2); HEMOGLOBIN 11.3 GM/dL (10.7-15.3); LYMPH % 24.8 % (8-40); MCH 30.7 pg (25.7-33.7); MEAN CELL VOLUME 90.2 fl (80-96); NEUT % 60.9 % (42.8-82.8); PLATELET COUNT 225 K/MM3 (134-434); RDW 14.6 % (11.6-15.6); WHITE BLOOD COUNT 4.9 K/mm3 (4.0-10.0)
[2019-05-25] MEDS: METOPROLOL TARTRATE 25 MG TABLET (FP) PO SCH (10:21)
[2019-05-25] MEDS: LOSARTAN POTASSIUM 50 MG TABLET (FP) PO SCH (10:21)
[2019-05-25] MEDS: busPIRone HCL 5 MG TABLET PO SCH ×2 (10:21→21:41)
[2019-05-25] MEDS: FUROSEMIDE 40 MG/4 ML INJECTABLE VIAL IVPB SCH (10:22)
[2019-05-25] MEDS: ALPRAZolam 0.25 MG TABLET PO SCH ×2 (10:22→21:41)
[2019-05-25] MEDS: LIDOCAINE PATCH REMOVAL MC SCH (10:22)
[2019-05-25] MEDS: POTASSIUM CHLORIDE TABS 20 MEQ TABLET.ER (FP) PO SCH (10:22)
[2019-05-25 10:44] LABS: BLOOD UREA NITROGEN 12.9 mg/dL (7-18); CALCIUM 8.6 mg/dL (8.5-10.1); CREATININE 0.5 mg/dL (0.55-1.3); MAGNESIUM 1.8 mg/dL (1.8-2.4); POTASSIUM 4.6 mmol/L (3.5-5.1)
--- NOTE | 2019-05-25 15:38 | PN ---
Progress Note (short form) - Note Progress Note: 84-year-old, white female with history of permanent atrial fibrillation, hypertension, bronchial asthma since childhood, history of depression-anxiety disorder, intentional tremors, history of left breast carcinoma. Still has left chest wall pain, no SOB reported. C/o of intermittent nausea. K + is corrected. ALLERGIES: SULFA., Aspirin, Ibuprofen, Lactose Active Medications Generic Name Dose Route Start Last Admin Trade Name Freq PRN Reason Stop Dose Admin Albuterol Sulfate 1 amp 05/22/19 16:06 05/24/19 19:13 Ventolin 0.083% Nebulizer Soln - NEB 1 amp Q6H PRN Administration SHORT OF BREATH/WHEEZING Alprazolam 0.5 mg 05/22/19 10:00 05/25/19 10:22 Xanax - PO 0.5 mg BID KELLY Administration Buspirone HCl 7.5 mg 05/22/19 10:00 05/25/19 10:21 Buspar - PO 7.5 mg BID KELLY Administration Furosemide 40 mg 05/22/19 10:00 05/25/19 10:22 Lasix Injection - IVPB 40 mg DAILY [facility] Administration Lidocaine 1 patch 05/22/19 20:00 05/24/19 20:01 Lidoderm Patch - TP 1 patch DAILY@1999 [facility] Administration Losartan Potassium 50 mg 05/22/19 10:00 05/25/19 10:21 Cozaar - PO 50 mg DAILY [facility] Administration Metoprolol Tartrate 25 mg 05/22/19 10:00 05/25/19 10:21 Lopressor - PO 25 mg DAILY [facility] Administration Miscellaneous 1 each 05/23/19 08:00 05/25/19 10:22 Lidoderm Patch Removal MC 1 each DAILY@0800 [facility] Administration Potassium Chloride 20 meq 05/22/19 16:00 05/25/19 10:22 K-Dur - PO 20 meq DAILY [facility] Administration EXAMINATION: General: 84-year-old female who is in no acute distress. Last Vital Signs Temp Pulse Resp BP Pulse Ox 99.0 F 115 H 20 133/73 96 05/24/19 06:26 05/24/19 06:26 05/24/19 06:26 05/24/19 06:26 05/23/19 21:00 Neck: Supple. No jugular venous distention. Carotids were 2+, upstrokes were normal. No bruits were heard and no thyromegaly was present. Heart: PMI is in the 5th intercostal space. No heaves or thrills. S1 and S2 were normal. Ejection systolic murmur grade I/ was heard along the left sternal border and right intercostal space. No diastolic murmur or gallops were heard. Lungs: Clear on auscultation. Chest: Tenderness involving the right lower lateral ribs on palpation. Abdomen: Soft, nontender. No hepatosplenomegaly or palpable masses were felt. Bowel sounds were heard. Extremities: No calf tenderness or dependent edema. Femoral pulses were 2+, dorsalis pedis pulses were 1-2+, posterior tibial pulses could not be palpated. CBC, BMP 05/25/19 09:40 05/25/19 09:40 IMPRESSION: 1. Hypertension, hypertensive cardiovascular disease; currently normotensive. 2. Bilateral pleural effusions, as recorded on CT scan. Etiology: a. Congestive heart failure. b. Possibility of malignant effusion needs to be excluded. 3. Permanent atrial fibrillation. 4. History of fall with bruising of the right lower ribcage. 5. Compression fracture of T9. 6. Intentional tremors. 7. Chronic bronchial asthma. 8. Hypokalemia, corrected. 9. Hypomagnesemia. 10. Left breast CA. RECOMMENDATIONS: 1. Evaluation of nausea. 2. F/u Mg. level. 3. Awaiting thoracentesis. MISTY WOODARD M.D.
[2019-05-25] MEDS: LIDOCAINE 5% TOPICAL PATCH TP SCH (21:41)
[2019-05-25] MEDS: ALBUTEROL SO4 0.083% IH SOL 2.5 MG/3 ML VIAL.NEB. NEB PRN (21:50)
--- NOTE | 2019-05-25 23:50 | EKG ---
Test Reason : Blood Pressure : / mmHG Vent. Rate : 104 BPM Atrial Rate : 077 BPM P-R Int : 000 ms QRS Dur : 080 ms QT Int : 340 ms P-R-T Axes : 000 072 069 degrees QTc Int : 447 ms POOR DATA QUALITY, INTERPRETATION MAY BE ADVERSELY AFFECTED ATRIAL FIBRILLATION WITH RAPID VENTRICULAR RESPONSE WITH PREMATURE VENTRICULAR OR ABERRANTLY CONDUCTED COMPLEXES LOW VOLTAGE QRS ABNORMAL ECG WHEN COMPARED WITH ECG OF 21-MAY-2019 21:25, CRITERIA FOR ANTERIOR INFARCT ARE NO LONGER PRESENT NONSPECIFIC T WAVE ABNORMALITY NO LONGER EVIDENT IN INFERIOR LEADS Confirmed by BALDEV CA MD ([id number]) on 05/25/2019 11:49:53 PM Referred By: Confirmed By:BALDEV CA MD
[2019-05-26] MEDS: traMADol HCL 50 MG TABLET PO PRN ×2 (07:39→21:24)
[2019-05-26 08:30] LABS: BASO % 0.4 % (0-2.0); EOS % 5.5 % (0-4.5); HEMATOCRIT 34.7 % (32.4-45.2); HEMOGLOBIN 11.6 GM/dL (10.7-15.3); LYMPH % 24.6 % (8-40); MCH 30.1 pg (25.7-33.7); MCHC 33.5 g/dl (32.0-36.0); MEAN CELL VOLUME 89.8 fl (80-96); MEAN PLT VOLUME 8.9 fl (7.5-11.1); MONO % 8.8 % (3.8-10.2); NEUT % 60.7 % (42.8-82.8); PLATELET COUNT 242 K/MM3 (134-434); RBC 3.86 M/mm3 (3.60-5.2); RDW 14.7 % (11.6-15.6); WHITE BLOOD COUNT 5.1 K/mm3 (4.0-10.0)
[2019-05-26 08:45] LABS: BLOOD UREA NITROGEN 14.7 mg/dL (7-18); CALCIUM 9.3 mg/dL (8.5-10.1); CREATININE 0.5 mg/dL (0.55-1.3); POTASSIUM 4.6 mmol/L (3.5-5.1)
[2019-05-26] MEDS: ALPRAZolam 0.25 MG TABLET PO SCH ×2 (10:17→21:24)
[2019-05-26] MEDS: LOSARTAN POTASSIUM 50 MG TABLET (FP) PO SCH (10:17)
[2019-05-26] MEDS: METOPROLOL TARTRATE 25 MG TABLET (FP) PO SCH (10:18)
[2019-05-26] MEDS: busPIRone HCL 5 MG TABLET PO SCH ×2 (10:18→21:24)
[2019-05-26] MEDS: LIDOCAINE PATCH REMOVAL MC SCH (10:19)
[2019-05-26] MEDS: FUROSEMIDE 40 MG/4 ML INJECTABLE VIAL IVPB SCH (10:19)
[2019-05-26] MEDS: POTASSIUM CHLORIDE TABS 20 MEQ TABLET.ER (FP) PO SCH (10:19)
--- NOTE | 2019-05-26 15:37 | PN ---
Progress Note, Physician Chief Complaint: C/O chest wall pain History of Present Illness: 84-year-old, white female with history o ppermanent atrial fibrillation, hypertension, bronchial asthma since childhood, history of depression-anxiety disorder, intentional tremors, history of left breast carcinoma.complaining of right chest wall pain, no SOB reported. - Current Medication List Current Medications: Active Medications Albuterol Sulfate (Ventolin 0.083% Nebulizer Soln -) 1 amp NEB Q6H PRN PRN Reason: SHORT OF BREATH/WHEEZING Last Admin: 05/25/19 21:50 Dose: 1 amp Alprazolam (Xanax -) 0.5 mg PO BID ON LICENSE OF [facility] Last Admin: 05/26/19 10:17 Dose: 0.5 mg Buspirone HCl (Buspar -) 7.5 mg PO BID ON [facility] OF [facility] Last Admin: 05/26/19 10:18 Dose: 7.5 mg Furosemide (Lasix Injection -) 40 mg IVPB DAILY ON [facility] OF [facility] Last Admin: 05/26/19 10:19 Dose: 40 mg Lidocaine (Lidoderm Patch -) 1 patch TP DAILY@2000 ON [facility] OF [facility] Last Admin: 05/25/19 21:41 Dose: 1 patch Losartan Potassium (Cozaar -) 50 mg PO DAILY [facility] Last Admin: 05/26/19 10:17 Dose: 50 mg Metoprolol Tartrate (Lopressor -) 25 mg PO DAILY [facility] Last Admin: 05/26/19 10:18 Dose: 25 mg Miscellaneous (Lidoderm Patch Removal) 1 each MC DAILY@0800 ON [facility] OF [facility] Last Admin: 05/26/19 10:19 Dose: 1 each Potassium Chloride (K-Dur -) 20 meq PO DAILY ON [facility] OF [facility] Last Admin: 05/26/19 10:19 Dose: 20 meq Tramadol HCl (Ultram -) 50 mg PO Q8H PRN PRN Reason: PAIN 6-10 Last Admin: 05/26/19 07:39 Dose: 50 mg - Objective Vital Signs: Vital Signs Temperature 98.0 F 05/26/19 13:40 Pulse Rate 87 05/26/19 13:40 Respiratory Rate 20 05/26/19 13:40 Blood Pressure 108/57 L 05/26/19 13:40 O2 Sat by Pulse Oximetry (%) 96 05/26/19 09:00 Elderly F not in distress c/o Rt Chest wall pain HEENT: Mm moist, no anemia NECK: No JVD No Bruit CHEST: Basal crepts Tens + CVS: S1S2 Irr no m/g/r ABD: No distention, non tender EXT: B no LE swelling Pulses + [employer]: AOX3 non focal Labs: CBC, BMP 05/26/19 07:53 05/26/19 07:53 INR, PTT INR 1.22 (0.83-1.09) H 05/24/19 08:00 Problem List - Problems (1) Fall Assessment/Plan: mecahnical no acute fracture pain control Code(s): W19.XXXA - UNSPECIFIED FALL, INITIAL ENCOUNTER Qualifiers: Encounter type: initial encounter Qualified Code(s): W19.XXXA - Unspecified fall, initial encounter (2) A-fib Assessment/Plan: Rate controlled of apxiban Code(s): I48.91 - UNSPECIFIED ATRIAL FIBRILLATION (3) Pleural effusion Assessment/Plan: can be due to CHF F/U cardiology recommendation Code(s): J90 - PLEURAL EFFUSION, NOT ELSEWHERE CLASSIFIED (4) Hypokalemia Assessment/Plan: Rresolved f/u BMP Code(s): E87.6 - HYPOKALEMIA (5) Hypomagnesemia Assessment/Plan: Repleted will F/U BMP Code(s): E83.42 - HYPOMAGNESEMIA (6) Carcinoma of breast Assessment/Plan: F/U Oncology recommondations Code(s): C50.919 - MALIGNANT NEOPLASM OF UNSP SITE OF UNSPECIFIED FEMALE BREAST
[2019-05-26] MEDS: LIDOCAINE 5% TOPICAL PATCH TP SCH (20:56)
--- NOTE | 2019-05-27 08:54 | PN ---
Progress Note, Physician Chief Complaint: C/O rt shoulder pain History of Present Illness: Awaiting rabia lucia - Current Medication List Current Medications: Active Medications Albuterol Sulfate (Ventolin 0.083% Nebulizer Soln -) 1 amp NEB Q6H PRN PRN Reason: SHORT OF BREATH/WHEEZING Last Admin: 05/25/19 21:50 Dose: 1 amp Alprazolam (Xanax -) 0.5 mg PO BID [facility] Last Admin: 05/26/19 21:24 Dose: 0.5 mg Buspirone HCl (Buspar -) 7.5 mg PO BID [facility] Last Admin: 05/26/19 21:24 Dose: 7.5 mg Furosemide (Lasix Injection -) 40 mg IVPB DAILY [facility] Last Admin: 05/26/19 10:19 Dose: 40 mg Lidocaine (Lidoderm Patch -) 1 patch TP DAILY@2000 [facility] Last Admin: 05/26/19 20:56 Dose: 1 patch Losartan Potassium (Cozaar -) 50 mg PO DAILY [facility] Last Admin: 05/26/19 10:17 Dose: 50 mg Metoprolol Tartrate (Lopressor -) 25 mg PO DAILY [facility] Last Admin: 05/26/19 10:18 Dose: 25 mg Miscellaneous (Lidoderm Patch Removal) 1 each MC DAILY@0800 [facility] Last Admin: 05/26/19 10:19 Dose: 1 each Potassium Chloride (K-Dur -) 20 meq PO DAILY [facility] Last Admin: 05/26/19 10:19 Dose: 20 meq Tramadol HCl (Ultram -) 50 mg PO Q8H PRN PRN Reason: PAIN 6-10 Last Admin: 05/26/19 21:24 Dose: 50 mg - Objective Vital Signs: Vital Signs Temperature 97.7 F 05/27/19 05:42 Pulse Rate 100 H 05/27/19 05:42 Respiratory Rate 18 05/27/19 05:42 Blood Pressure 101/54 L 05/27/19 05:42 O2 Sat by Pulse Oximetry (%) 96 05/26/19 21:00 Constitutional: Yes: Anxious Eyes: Yes: WNL HENT: Yes: WNL Neck: Yes: WNL Cardiovascular: Yes: WNL Respiratory: Yes: Poor Air Entry Gastrointestinal: Yes: WNL ...Rectal Exam: Yes: WNL Breast(s): Yes: Left, Mass Edema: No Neurological: Yes: Alert Labs: CBC, BMP 05/26/19 07:53 05/26/19 07:53 INR, PTT INR 1.22 (0.83-1.09) H 05/24/19 08:00 Assessment/Plan cleared for the procedure
[2019-05-27] MEDS: POTASSIUM CHLORIDE TABS 20 MEQ TABLET.ER (FP) PO SCH (10:19)
[2019-05-27] MEDS: busPIRone HCL 5 MG TABLET PO SCH ×2 (10:19→22:23)
[2019-05-27] MEDS: LOSARTAN POTASSIUM 50 MG TABLET (FP) PO SCH (10:20)
[2019-05-27] MEDS: METOPROLOL TARTRATE 25 MG TABLET (FP) PO SCH (10:20)
[2019-05-27] MEDS: LIDOCAINE PATCH REMOVAL MC SCH (10:20)
[2019-05-27] MEDS: ALPRAZolam 0.25 MG TABLET PO SCH ×2 (10:20→22:23)
[2019-05-27] MEDS: FUROSEMIDE 40 MG/4 ML INJECTABLE VIAL IVPB SCH (12:09)
[2019-05-27 15:08] LABS: BF WBC & OTHER NUCLEATED CELLS 276 /mm3
[2019-05-27 16:30] LABS: BODY FLUID MACROPHAGES 23 %; BODY FLUID MESOTHELIAL 16 %; BODY FLUID MONOCYTE 6 %
[2019-05-27] MEDS ORDERED: ONDANSETRON 4 MG/2 ML VIAL IVPUSH PRN (17:42)
--- NOTE | 2019-05-27 21:49 | PN ---
Progress Note (short form) - Note Progress Note: PAtient seen and examined Denies any complaints s/p thoracentesis today Last Vital Signs Temp Pulse Resp BP Pulse Ox 98.3 F 85 20 115/66 97 05/28/19 05:30 05/28/19 05:30 05/28/19 05:30 05/28/19 05:30 05/27/19 21:00 Cor: RSR, No murmurs, No gallops Lungs: decreased at bases Abd: Soft, Normal bowel sounds, No organomegaly Ext:No significant edema Labs/MEds reviewed A/P 84 y/o patient with metastatic breast cancer, noncompliant with endocrine therapy b/l pleural effusion right> left on lasix acute T9 fx lidoderm patch
[2019-05-27] MEDS: LIDOCAINE 5% TOPICAL PATCH TP SCH (22:23)
[2019-05-28] MEDS ORDERED: ALBUTEROL SO4 0.083% IH SOL 2.5 MG/3 ML VIAL.NEB. NEB PRN (01:16)
[2019-05-28] MEDS: traMADol HCL 50 MG TABLET PO PRN (01:49)
--- NOTE | 2019-05-28 09:05 | PN ---
Progress Note, Physician Chief Complaint: Feels better History of Present Illness: S/P Rt thotacentesis - Current Medication List Current Medications: Active Medications Albuterol Sulfate (Ventolin 0.083% Nebulizer Soln -) 1 amp NEB RQID PRN PRN Reason: SHORT OF BREATH/WHEEZING Alprazolam (Xanax -) 0.5 mg PO BID [facility] Last Admin: 05/27/19 22:23 Dose: 0.5 mg Buspirone HCl (Buspar -) 7.5 mg PO BID [facility] Last Admin: 05/27/19 22:23 Dose: 7.5 mg Furosemide (Lasix Injection -) 40 mg IVPB DAILY [facility] Last Admin: 05/27/19 12:09 Dose: Not Given Lidocaine (Lidoderm Patch -) 1 patch TP DAILY@1999 [facility] Last Admin: 05/27/19 22:23 Dose: 1 patch Losartan Potassium (Cozaar -) 50 mg PO DAILY [facility] Last Admin: 05/27/19 10:20 Dose: 50 mg Metoprolol Tartrate (Lopressor -) 25 mg PO DAILY [facility] Last Admin: 05/27/19 10:20 Dose: 25 mg Miscellaneous (Lidoderm Patch Removal) 1 each MC DAILY@0800 [facility] Last Admin: 05/27/19 10:20 Dose: 1 each Ondansetron HCl (Zofran Injection) 4 mg IVPUSH Q8H PRN PRN Reason: NAUSEA AND/OR VOMITING Potassium Chloride (K-Dur -) 20 meq PO DAILY [facility] Last Admin: 05/27/19 10:19 Dose: 20 meq Tramadol HCl (Ultram -) 50 mg PO Q8H PRN PRN Reason: PAIN 6-10 Last Admin: 05/28/19 01:49 Dose: 50 mg - Objective Vital Signs: Vital Signs Temperature 98.3 F 05/28/19 05:30 Pulse Rate 85 05/28/19 05:30 Respiratory Rate 20 05/28/19 05:30 Blood Pressure 115/66 05/28/19 05:30 O2 Sat by Pulse Oximetry (%) 97 05/27/19 21:00 Constitutional: Yes: Anxious Eyes: Yes: WNL HENT: Yes: WNL Neck: Yes: WNL Cardiovascular: Yes: WNL Respiratory: Yes: SOB on Exertion Gastrointestinal: Yes: WNL ...Rectal Exam: Yes: Deferred Genitourinary: Yes: WNL Musculoskeletal: Yes: Muscle Weakness Edema: No Neurological: Yes: Alert Labs: CBC, BMP 05/26/19 07:53 05/26/19 07:53 INR, PTT INR 1.22 (0.83-1.09) H 05/24/19 08:00 Assessment/Plan pleural fluid report pending
[2019-05-28] MEDS: LIDOCAINE PATCH REMOVAL MC SCH (09:09)
[2019-05-28] MEDS: busPIRone HCL 5 MG TABLET PO SCH ×2 (09:59→21:00)
[2019-05-28] MEDS: METOPROLOL TARTRATE 25 MG TABLET (FP) PO SCH (10:00)
[2019-05-28] MEDS: LOSARTAN POTASSIUM 50 MG TABLET (FP) PO SCH (10:00)
[2019-05-28] MEDS: ALPRAZolam 0.25 MG TABLET PO SCH ×2 (10:00→21:00)
[2019-05-28] MEDS: POTASSIUM CHLORIDE TABS 20 MEQ TABLET.ER (FP) PO SCH (10:00)
[2019-05-28] MEDS: FUROSEMIDE 40 MG/4 ML INJECTABLE VIAL IVPB SCH (10:01)
--- NOTE | 2019-05-28 13:39 | PN ---
Progress Note (short form) - Note Progress Note: 84-year-old, white female with history of permanent atrial fibrillation, hypertension, bronchial asthma since childhood, history of depression-anxiety disorder, intentional tremors, history of left breast carcinoma. Still has minimal left chest wall pain, no SOB reported. Status post thoracentesis. ALLERGIES: SULFA., Aspirin, Ibuprofen, Lactose Active Medications Albuterol Sulfate (Ventolin 0.083% Nebulizer Soln -) 1 amp NEB RQID PRN PRN Reason: SHORT OF BREATH/WHEEZING Alprazolam (Xanax -) 0.5 mg PO BID [facility] Last Admin: 05/28/19 10:00 Dose: 0.5 mg Buspirone HCl (Buspar -) 7.5 mg PO BID [facility] Last Admin: 05/28/19 09:59 Dose: 7.5 mg Furosemide (Lasix -) 40 mg PO DAILY [facility] Lidocaine (Lidoderm Patch -) 1 patch TP DAILY@1999 [facility] Last Admin: 05/27/19 22:23 Dose: 1 patch Losartan Potassium (Cozaar -) 50 mg PO DAILY [facility] Last Admin: 05/28/19 10:00 Dose: 50 mg Metoprolol Tartrate (Lopressor -) 25 mg PO DAILY [facility] Last Admin: 05/28/19 10:00 Dose: 25 mg Miscellaneous (Lidoderm Patch Removal) 1 each MC DAILY@0800 [facility] Last Admin: 05/28/19 09:09 Dose: Not Given Ondansetron HCl (Zofran Injection) 4 mg IVPUSH Q8H PRN PRN Reason: NAUSEA AND/OR VOMITING Potassium Chloride (K-Dur -) 20 meq PO DAILY [facility] Last Admin: 05/28/19 10:00 Dose: 20 meq Tramadol HCl (Ultram -) 50 mg PO Q8H PRN PRN Reason: PAIN 6-10 Last Admin: 05/28/19 01:49 Dose: 50 mg EXAMINATION: General: 84-year-old female is in no acute distress. Last Vital Signs Temp Pulse Resp BP Pulse Ox 98.1 F 105 H 18 118/66 97 05/28/19 09:08 05/28/19 09:08 05/28/19 09:08 05/28/19 09:08 05/28/19 09:00 Intake & Output 05/25/19 05/26/19 05/27/19 05/28/19 23:59 23:59 23:59 23:59 Intake Total 350 410 520 320 Output Total 100 Balance 350 410 520 220 Neck: Supple. No jugular venous distention. Carotids were 2+, upstrokes were normal. No bruits were heard and no thyromegaly was present. Heart: PMI is in the 5th intercostal space. No heaves or thrills. S1 and S2 were normal. Ejection systolic murmur grade I/ was heard along the left sternal border and right intercostal space. No diastolic murmur or gallops were heard. Lungs: Slight decrease in breath sounds at the right base. Chest: Minimal tenderness involving the right lower lateral ribs on palpation. Abdomen: Soft, nontender. No hepatosplenomegaly or palpable masses were felt. Bowel sounds were heard. Extremities: No calf tenderness or dependent edema. Femoral pulses were 2+, dorsalis pedis pulses were 1-2+, posterior tibial pulses could not be palpated. CBC, BMP 05/26/19 07:53 05/26/19 07:53 IMPRESSION: 1. Hypertension, hypertensive cardiovascular disease; currently normotensive. 2. Bilateral pleural effusions, as recorded on CT scan. Etiology to be determined. 3. Permanent atrial fibrillation. 4. History of fall with bruising of the right lower ribcage. 5. Compression fracture of T9. 6. Intentional tremors. 7. Chronic bronchial asthma. 8. Hypokalemia, corrected. 9. Hypomagnesemia. 10. Left breast CA. RECOMMENDATIONS: 1. Continue present cardiac medications. 2. Increase ambulation. MITSY WOODARD M.D.
[2019-05-28] MEDS: LIDOCAINE 5% TOPICAL PATCH TP SCH (20:58)
[2019-05-28 23:55] VITALS: BMI 18.1
[2019-05-29] MEDS: traMADol HCL 50 MG TABLET PO PRN ×3 (05:47→21:32)
--- NOTE | 2019-05-29 09:27 | PN ---
Progress Note, Physician Chief Complaint: Pain at the rt chest and shoulder - Current Medication List Current Medications: Active Medications Albuterol Sulfate (Ventolin 0.083% Nebulizer Soln -) 1 amp NEB RQID PRN PRN Reason: SHORT OF BREATH/WHEEZING Alprazolam (Xanax -) 0.5 mg PO BID [facility] Last Admin: 05/28/19 21:00 Dose: 0.5 mg Buspirone HCl (Buspar -) 7.5 mg PO BID [facility] Last Admin: 05/28/19 21:00 Dose: 7.5 mg Codeine Sulfate (Codeine Sulfate -) 30 mg PO Q4H [facility] Furosemide (Lasix -) 40 mg PO DAILY [facility] Lidocaine (Lidoderm Patch -) 1 patch TP DAILY@1999 [facility] Last Admin: 05/28/19 20:58 Dose: 1 patch Losartan Potassium (Cozaar -) 50 mg PO DAILY [facility] Last Admin: 05/28/19 10:00 Dose: 50 mg Metoprolol Tartrate (Lopressor -) 25 mg PO DAILY [facility] Last Admin: 05/28/19 10:00 Dose: 25 mg Miscellaneous (Lidoderm Patch Removal) 1 each MC DAILY@0800 [facility] Last Admin: 05/28/19 09:09 Dose: Not Given Ondansetron HCl (Zofran Injection) 4 mg IVPUSH Q8H PRN PRN Reason: NAUSEA AND/OR VOMITING Potassium Chloride (K-Dur -) 20 meq PO DAILY [facility] Last Admin: 05/28/19 10:00 Dose: 20 meq - Objective Vital Signs: Vital Signs Temperature 98.5 F 05/29/19 05:55 Pulse Rate 105 H 05/29/19 05:55 Respiratory Rate 20 05/29/19 05:55 Blood Pressure 108/66 05/29/19 05:55 O2 Sat by Pulse Oximetry (%) 98 05/28/19 21:00 Constitutional: Yes: Mild Distress Eyes: Yes: WNL HENT: Yes: WNL Neck: Yes: WNL Gastrointestinal: Yes: WNL ...Rectal Exam: Yes: Deferred Genitourinary: Yes: WNL Breast(s): Yes: Left, Mass Edema: No Neurological: Yes: Alert Labs: CBC, BMP 05/26/19 07:53 05/26/19 07:53 INR, PTT INR 1.22 (0.83-1.09) H 05/24/19 08:00 Assessment/Plan codine for
[2019-05-29] MEDS ORDERED: CODEINE SO4 30 MG TABLET PO PRN (09:30)
[2019-05-29] MEDS: ALPRAZolam 0.25 MG TABLET PO SCH (09:50)
[2019-05-29] MEDS: POTASSIUM CHLORIDE TABS 20 MEQ TABLET.ER (FP) PO SCH (09:51)
[2019-05-29] MEDS: METOPROLOL TARTRATE 25 MG TABLET (FP) PO SCH (09:51)
[2019-05-29] MEDS: FUROSEMIDE 40 MG TABLET (FP) PO SCH (09:52)
[2019-05-29] MEDS: LIDOCAINE PATCH REMOVAL MC SCH (09:52)
[2019-05-29] MEDS: LOSARTAN POTASSIUM 50 MG TABLET (FP) PO SCH (09:52)
[2019-05-29] MEDS: busPIRone HCL 5 MG TABLET PO SCH ×2 (09:52→22:00)
--- NOTE | 2019-05-29 10:35 | PN ---
Progress Note (short form) - Note Progress Note: 84-year-old, white female with history of permanent atrial fibrillation, hypertension, bronchial asthma since childhood, history of depression-anxiety disorder, intentional tremors, history of left breast carcinoma. ALLERGIES: SULFA., Aspirin, Ibuprofen, Lactose Active Medications Albuterol Sulfate (Ventolin 0.083% Nebulizer Soln -) 1 amp NEB RQID PRN PRN Reason: SHORT OF BREATH/WHEEZING Buspirone HCl (Buspar -) 7.5 mg PO BID [facility] Last Admin: 05/29/19 09:52 Dose: 7.5 mg Codeine Sulfate (Codeine Sulfate -) 30 mg PO Q4H PRN PRN Reason: PAIN LEVEL 6-10 Last Admin: 05/29/19 09:51 Dose: 30 mg Furosemide (Lasix -) 40 mg PO DAILY [facility] Last Admin: 05/29/19 09:52 Dose: 40 mg Lidocaine (Lidoderm Patch -) 1 patch TP DAILY@1999 [facility] Last Admin: 05/28/19 20:58 Dose: 1 patch Losartan Potassium (Cozaar -) 50 mg PO DAILY [facility] Last Admin: 05/29/19 09:52 Dose: 50 mg Metoprolol Tartrate (Lopressor -) 25 mg PO DAILY [facility] Last Admin: 05/29/19 09:51 Dose: 25 mg Miscellaneous (Lidoderm Patch Removal) 1 each MC DAILY@0800 [facility] Last Admin: 05/29/19 09:52 Dose: 1 each Ondansetron HCl (Zofran Injection) 4 mg IVPUSH Q8H PRN PRN Reason: NAUSEA AND/OR VOMITING Potassium Chloride (K-Dur -) 20 meq PO DAILY [facility] Last Admin: 05/29/19 09:51 Dose: 20 meq EXAMINATION: General: 84-year-old female who is in no acute distress. Last Vital Signs Temp Pulse Resp BP Pulse Ox 98.5 F 105 H 20 108/66 98 05/29/19 05:55 05/29/19 05:55 05/29/19 05:55 05/29/19 05:55 05/28/19 21:00 Intake & Output 05/26/19 05/27/19 05/28/19 05/29/19 23:59 23:59 23:59 23:59 Intake Total 993 592 7429 120 Output Total 100 Balance 030 370 6289 120 Neck: Supple. No jugular venous distention. Carotids were 2+, upstrokes were normal. No bruits were heard and no thyromegaly was present. Heart: PMI is in the 5th intercostal space. No heaves or thrills. S1 and S2 were normal. Ejection systolic murmur grade I/ was heard along the left sternal border and right intercostal space. No diastolic murmur or gallops were heard. Lungs: Clear on auscultation. Chest: Tenderness involving the right lower lateral ribs on palpation. Abdomen: Soft, nontender. No hepatosplenomegaly or palpable masses were felt. Bowel sounds were heard. Extremities: No calf tenderness or dependent edema. Femoral pulses were 2+, dorsalis pedis pulses were 1-2+, posterior tibial pulses could not be palpated. CBC, BMP 05/26/19 07:53 05/26/19 07:53 IMPRESSION: 1. Hypertension, hypertensive cardiovascular disease; currently normotensive. 2. Bilateral pleural effusions, as recorded on CT scan. Etiology: a. Congestive heart failure. b. Possibility of malignant effusion needs to be excluded. 3. Permanent atrial fibrillation. 4. History of fall with bruising of the right lower ribcage. 5. Compression fracture of T9. 6. Intentional tremors. 7. Chronic bronchial asthma. 8. Hypokalemia, corrected. 9. Hypomagnesemia. 10. Left breast CA. RECOMMENDATIONS: 1. Evaluation of nausea. 2. F/u Mg. level. 3. Awaiting thoracentesis. MISTY WOODARD M.D.
[2019-05-29 15:12] LABS: BODY FLUID ALBUMIN 2.2 g/dL (.)
[2019-05-29] MEDS: APIXABAN 2.5 MG TABLET PO SCH (21:25)
[2019-05-29] MEDS: LIDOCAINE 5% TOPICAL PATCH TP SCH (21:29)
[2019-05-30] MEDS: traMADol HCL 50 MG TABLET PO PRN ×2 (02:45→10:33)
[2019-05-30] MEDS: LIDOCAINE PATCH REMOVAL MC SCH (08:00)
--- NOTE | 2019-05-30 09:49 | PN ---
Progress Note, Physician Chief Complaint: Back pain persists - Current Medication List Current Medications: Active Medications Albuterol Sulfate (Ventolin 0.083% Nebulizer Soln -) 1 amp NEB RQID PRN PRN Reason: SHORT OF BREATH/WHEEZING Apixaban (Eliquis -) 2.5 mg PO BID [facility] Last Admin: 05/29/19 21:25 Dose: 2.5 mg Buspirone HCl (Buspar -) 7.5 mg PO BID [facility] Last Admin: 05/29/19 22:00 Dose: 7.5 mg Furosemide (Lasix -) 40 mg PO DAILY [facility] Last Admin: 05/29/19 09:52 Dose: 40 mg Lidocaine (Lidoderm Patch -) 1 patch TP DAILY@1999 [facility] Last Admin: 05/29/19 21:29 Dose: 1 patch Losartan Potassium (Cozaar -) 50 mg PO DAILY [facility] Last Admin: 05/29/19 09:52 Dose: 50 mg Metoprolol Tartrate (Lopressor -) 25 mg PO DAILY [facility] Last Admin: 05/29/19 09:51 Dose: 25 mg Miscellaneous (Lidoderm Patch Removal) 1 each MC DAILY@0800 [facility] Last Admin: 05/29/19 09:52 Dose: 1 each Ondansetron HCl (Zofran Injection) 4 mg IVPUSH Q8H PRN PRN Reason: NAUSEA AND/OR VOMITING Potassium Chloride (K-Dur -) 20 meq PO DAILY [facility] Last Admin: 05/29/19 09:51 Dose: 20 meq Tramadol HCl (Ultram -) 50 mg PO Q6H PRN PRN Reason: PAIN 6-10 Last Admin: 05/30/19 02:45 Dose: 50 mg - Objective Vital Signs: Vital Signs Temperature 98.2 F 05/30/19 06:00 Pulse Rate 102 H 05/30/19 06:00 Respiratory Rate 20 05/30/19 06:00 Blood Pressure 111/64 05/30/19 06:00 O2 Sat by Pulse Oximetry (%) 98 05/29/19 09:00 Constitutional: Yes: No Distress, Anxious Eyes: Yes: WNL HENT: Yes: WNL Neck: Yes: WNL Cardiovascular: Yes: WNL Respiratory: Yes: WNL Gastrointestinal: Yes: WNL ...Rectal Exam: Yes: Deferred Musculoskeletal: Yes: Muscle Weakness Neurological: Yes: Alert Psychiatric: Yes: Alert Labs: CBC, BMP 05/26/19 07:53 05/26/19 07:53 INR, PTT INR 1.22 (0.83-1.09) H 05/24/19 08:00 Assessment/Plan Will discuss with Dr Figueroa
--- NOTE | 2019-05-30 10:20 | PN ---
Progress Note (short form) - Note Progress Note: 84-year-old, white female with history of permanent atrial fibrillation, hypertension, bronchial asthma since childhood, history of depression-anxiety disorder, intentional tremors, history of left breast carcinoma. No chest pain or discomfort reported. Pleural fluid is an exudate ALLERGIES: SULFA., Aspirin, Ibuprofen, Lactose Active Medications Albuterol Sulfate (Ventolin 0.083% Nebulizer Soln -) 1 amp NEB RQID PRN PRN Reason: SHORT OF BREATH/WHEEZING Apixaban (Eliquis -) 2.5 mg PO BID [facility] Last Admin: 05/29/19 21:25 Dose: 2.5 mg Buspirone HCl (Buspar -) 7.5 mg PO BID [facility] Last Admin: 05/29/19 22:00 Dose: 7.5 mg Furosemide (Lasix -) 40 mg PO DAILY [facility] Last Admin: 05/29/19 09:52 Dose: 40 mg Lidocaine (Lidoderm Patch -) 1 patch TP DAILY@1999 [facility] Last Admin: 05/29/19 21:29 Dose: 1 patch Losartan Potassium (Cozaar -) 50 mg PO DAILY [facility] Last Admin: 05/29/19 09:52 Dose: 50 mg Metoprolol Tartrate (Lopressor -) 25 mg PO DAILY [facility] Last Admin: 05/29/19 09:51 Dose: 25 mg Miscellaneous (Lidoderm Patch Removal) 1 each MC DAILY@0800 [facility] Last Admin: 05/29/19 09:52 Dose: 1 each Ondansetron HCl (Zofran Injection) 4 mg IVPUSH Q8H PRN PRN Reason: NAUSEA AND/OR VOMITING Potassium Chloride (K-Dur -) 20 meq PO DAILY [facility] Last Admin: 05/29/19 09:51 Dose: 20 meq Tramadol HCl (Ultram -) 50 mg PO Q6H PRN PRN Reason: PAIN 6-10 Last Admin: 05/30/19 02:45 Dose: 50 mg EXAMINATION: General: 84-year-old female is in no acute distress. Last Vital Signs Temp Pulse Resp BP Pulse Ox 98.2 F 102 irregular. 20 111/64 98 05/30/19 06:00 05/30/19 06:00 05/30/19 06:00 05/30/19 06:00 05/29/19 09:00 Intake & Output 05/27/19 05/28/19 05/29/19 05/30/19 23:59 23:59 23:59 23:59 Intake Total 520 1360 1250 Output Total 100 Balance 520 1260 1250 Neck: Supple. No jugular venous distention. Carotids were 2+, upstrokes were normal. No bruits were heard and no thyromegaly was present. Heart: PMI is in the 5th intercostal space. No heaves or thrills. S1 and S2 were normal. Ejection systolic murmur grade I/ was heard along the left sternal border and right intercostal space. No diastolic murmur or gallops were heard. Lungs: Slight decrease in breath sounds at the right base. Abdomen: Soft, nontender. No hepatosplenomegaly or palpable masses were felt. Bowel sounds were heard. Extremities: No calf tenderness or dependent edema. Femoral pulses were 2+, dorsalis pedis pulses were 1-2+, posterior tibial pulses could not be palpated. CBC, BMP 05/26/19 07:53 05/26/19 07:53 IMPRESSION: 1. Hypertension, hypertensive cardiovascular disease; currently normotensive. 2. Bilateral pleural effusions, exudate. 3. Permanent atrial fibrillation. 4. Recent fall with bruising of the right lower ribcage. 5. Compression fracture of T9. 6. Intentional tremors. 7. Chronic bronchial asthma. 8. Hypokalemia, corrected. 9. Hypomagnesemia. 10. Left breast CA. RECOMMENDATIONS: 1. Continue present cardiac medications. 2. Increase ambulation. 3. Oncology evaluation in progress. MISTY WOODARD M.D.
[2019-05-30] MEDS: LOSARTAN POTASSIUM 50 MG TABLET (FP) PO SCH (10:33)
[2019-05-30] MEDS: METOPROLOL TARTRATE 25 MG TABLET (FP) PO SCH (10:33)
[2019-05-30] MEDS: busPIRone HCL 5 MG TABLET PO SCH ×2 (10:33→21:10)
[2019-05-30] MEDS: FUROSEMIDE 40 MG TABLET (FP) PO SCH (10:33)
[2019-05-30] MEDS: APIXABAN 2.5 MG TABLET PO SCH ×2 (10:33→21:10)
[2019-05-30] MEDS: POTASSIUM CHLORIDE TABS 20 MEQ TABLET.ER (FP) PO SCH (10:33)
[2019-05-30] MEDS: ALPRAZolam 0.25 MG TABLET PO SCH ×2 (11:46→21:10)
[2019-05-30] MEDS: LIDOCAINE 5% TOPICAL PATCH TP SCH (21:09)
--- NOTE | 2019-05-30 21:52 | PN ---
Progress Note (short form) - Note Progress Note: PAtient seen and examined Denies any complaints s/p thoracentesis today AFVSS Cor: RSR, No murmurs, No gallops Lungs: decreased at bases Abd: Soft, Normal bowel sounds, No organomegaly Ext:No significant edema Labs/MEds reviewed A/P 84 y/o patient with metastatic breast cancer, noncompliant with endocrine therapy b/l pleural effusion right> left on lasix acute T9 fx lidoderm patch ? goals of care
[2019-05-31] MEDS: traMADol HCL 50 MG TABLET PO PRN ×2 (06:43→13:26)
[2019-05-31] MEDS: METOPROLOL TARTRATE 25 MG TABLET (FP) PO SCH (09:05)
[2019-05-31] MEDS: ALPRAZolam 0.25 MG TABLET PO SCH ×2 (09:05→21:01)
[2019-05-31] MEDS: APIXABAN 2.5 MG TABLET PO SCH ×2 (09:05→21:01)
[2019-05-31] MEDS: POTASSIUM CHLORIDE TABS 20 MEQ TABLET.ER (FP) PO SCH (09:05)
[2019-05-31] MEDS: busPIRone HCL 5 MG TABLET PO SCH ×2 (09:06→21:01)
[2019-05-31] MEDS: LIDOCAINE PATCH REMOVAL MC SCH (09:06)
--- NOTE | 2019-05-31 10:39 | PN ---
Progress Note (short form) - Note Progress Note: 84-year-old, white female with history of permanent atrial fibrillation, hypertension, bronchial asthma since childhood, history of depression-anxiety disorder, intentional tremors, history of left breast carcinoma. No chest pain or discomfort reported. on O2,denies SOB. ALLERGIES: SULFA., Aspirin, Ibuprofen, Lactose Active Medications Generic Name Dose Route Start Last Admin Trade Name Freq PRN Reason Stop Dose Admin Albuterol Sulfate 1 amp 05/28/19 01:16 Ventolin 0.083% Nebulizer Soln - NEB RQID PRN SHORT OF BREATH/WHEEZING Alprazolam 0.5 mg 05/30/19 11:45 05/31/19 09:05 Xanax - PO 0.5 mg BID KELLY Administration Apixaban 2.5 mg 05/29/19 22:00 05/31/19 09:05 Eliquis - PO 2.5 mg BID KELLY Administration Buspirone HCl 7.5 mg 05/22/19 10:00 05/31/19 09:06 Buspar - PO 7.5 mg BID KELLY Administration Furosemide 40 mg 05/29/19 10:00 05/30/19 10:33 Lasix - PO 40 mg DAILY KELLY Administration Lidocaine 1 patch 05/22/19 20:00 05/30/19 21:09 Lidoderm Patch - TP 1 patch DAILY@1999 KELLY Administration Losartan Potassium 50 mg 05/22/19 10:00 05/30/19 10:33 Cozaar - PO 50 mg DAILY KELLY Administration Metoprolol Tartrate 25 mg 05/22/19 10:00 05/31/19 09:05 Lopressor - PO 25 mg DAILY KELLY Administration Miscellaneous 1 each 05/23/19 08:00 05/31/19 09:06 Lidoderm Patch Removal MC 1 each DAILY@0800 KELLY Administration Ondansetron HCl 4 mg 05/27/19 17:42 Zofran Injection IVPUSH Q8H PRN NAUSEA AND/OR VOMITING Potassium Chloride 20 meq 05/22/19 16:00 05/31/19 09:05 K-Dur - PO 20 meq DAILY KELLY Administration Tramadol HCl 50 mg 05/29/19 10:53 05/31/19 06:43 Ultram - PO 50 mg Q6H PRN Administration PAIN 6-10 EXAMINATION: General: 84-year-old female is in no acute distress. Last Vital Signs Temp Pulse Resp BP Pulse Ox 98.1 F 100 H 0 L 112/64 98 05/31/19 05:50 05/31/19 05:50 05/31/19 05:50 05/31/19 05:50 05/30/19 21:00 Neck: Supple. No jugular venous distention. Carotids were 2+, upstrokes were normal. No bruits were heard and no thyromegaly was present. Heart: PMI is in the 5th intercostal space. No heaves or thrills. S1 and S2 were normal. Ejection systolic murmur grade I/ was heard along the left sternal border and right intercostal space. No diastolic murmur or gallops were heard. Lungs: Sound clear. Abdomen: Soft, nontender. No hepatosplenomegaly or palpable masses were felt. Bowel sounds were heard. Extremities: No calf tenderness or dependent edema. Femoral pulses were 2+, dorsalis pedis pulses were 1-2+, posterior tibial pulses could not be palpated. CBC, BMP 05/26/19 07:53 05/26/19 07:53 IMPRESSION: 1. Hypertension, hypertensive cardiovascular disease; currently normotensive. 2. Bilateral pleural effusions, exudate. 3. Permanent atrial fibrillation with periods of rapid ventricular response. 4. Recent fall with bruising of the right lower rib cage. 5. Compression fracture of T9. 6. Intentional tremors. 7. Chronic bronchial asthma. 8. Hypokalemia, corrected. 9. Hypomagnesemia. 10. Left breast CA. RECOMMENDATIONS: 1. Continue present cardiac medications. 2. Consider increasing dose of metropolol to 25mg. BID for rate control. 3. Increase ambulation. 4. Oncology evaluation in progress. 5. Check O2 sat. on room air. 6. F/u CBC and BMP. MISTY WOODARD M.D.
[2019-05-31] MEDS: LOSARTAN POTASSIUM 50 MG TABLET (FP) PO SCH (14:49)
[2019-05-31] MEDS: FUROSEMIDE 40 MG TABLET (FP) PO SCH (14:50)
--- NOTE | 2019-05-31 15:13 | PN ---
Progress Note, Physician Chief Complaint: Back pain persists No relief History of Present Illness: Left Breast CA, admitted with SOB Right pleural fluid removed, exudate - Current Medication List Current Medications: Active Medications Albuterol Sulfate (Ventolin 0.083% Nebulizer Soln -) 1 amp NEB RQID PRN PRN Reason: SHORT OF BREATH/WHEEZING Alprazolam (Xanax -) 0.5 mg PO BID [facility] Last Admin: 05/31/19 09:05 Dose: 0.5 mg Apixaban (Eliquis -) 2.5 mg PO BID [facility] Last Admin: 05/31/19 09:05 Dose: 2.5 mg Buspirone HCl (Buspar -) 7.5 mg PO BID [facility] Last Admin: 05/31/19 09:06 Dose: 7.5 mg Furosemide (Lasix -) 40 mg PO DAILY [facility] Last Admin: 05/31/19 14:50 Dose: Not Given Lidocaine (Lidoderm Patch -) 1 patch TP DAILY@2000 [facility] Last Admin: 05/30/19 21:09 Dose: 1 patch Losartan Potassium (Cozaar -) 50 mg PO DAILY [facility] Last Admin: 05/31/19 14:49 Dose: Not Given Metoprolol Tartrate (Lopressor -) 25 mg PO DAILY [facility] Last Admin: 05/31/19 09:05 Dose: 25 mg Miscellaneous (Lidoderm Patch Removal) 1 each MC DAILY@0800 [facility] Last Admin: 05/31/19 09:06 Dose: 1 each Ondansetron HCl (Zofran Injection) 4 mg IVPUSH Q8H PRN PRN Reason: NAUSEA AND/OR VOMITING Potassium Chloride (K-Dur -) 20 meq PO DAILY [facility] Last Admin: 05/31/19 09:05 Dose: 20 meq Tramadol HCl (Ultram -) 50 mg PO Q6H PRN PRN Reason: PAIN 6-10 Last Admin: 05/31/19 13:26 Dose: 50 mg - Objective Vital Signs: Vital Signs Temperature 97.9 F 05/31/19 08:35 Pulse Rate 86 05/31/19 14:45 Respiratory Rate 18 05/31/19 14:45 Blood Pressure 93/55 L 05/31/19 14:45 O2 Sat by Pulse Oximetry (%) 100 05/31/19 09:10 Constitutional: Yes: Anxious Eyes: Yes: WNL HENT: Yes: WNL Neck: Yes: Supple Cardiovascular: Yes: Regular Rate and Rhythm Respiratory: Yes: On Nasal O2, SOB, SOB on Exertion Gastrointestinal: Yes: Normal Bowel Sounds ...Rectal Exam: Yes: Deferred Genitourinary: Yes: WNL Breast(s): Yes: Left, Mass Musculoskeletal: Yes: Muscle Weakness Peripheral Pulses WNL: Yes Neurological: Yes: Alert Labs: CBC, BMP 05/26/19 07:53 05/26/19 07:53 INR, PTT INR 1.22 (0.83-1.09) H 05/24/19 08:00 Assessment/Plan Will discuss with Dr Figueroa Case discussed with Dr. Figueroa After discharge will treat as outpatient monthly
--- NOTE | 2019-05-31 16:25 | PN ---
Progress Note (short form) - Note Progress Note: Hematology and Oncology follow up Subjective: Patient seen and examined at bedside. No new complaints. No events overnight. Objective: Vital Signs Temperature 97.9 F 05/31/19 08:35 Pulse Rate 86 05/31/19 14:45 Respiratory Rate 18 05/31/19 14:45 Blood Pressure 93/55 L 05/31/19 14:45 O2 Sat by Pulse Oximetry (%) 100 05/31/19 09:10 Physical exam: Gen: patient seen lying in bed in NAD. Lungs: clear to auscultation bilaterally down to the bases Heart: regular rate and rhythm, s1,s2 heard. No murmurs, gallops or rubs heard. Breast: Right breast WNL. There is a 4-5cm mobile, nontender mass on the left breast just above and involving the areola. The mass is firm/rubbery. There is associated left axillary lymphadenopathy Abdomen: soft, nontender, nondistended. Bowel sounds heard. CBC, BMP 05/26/19 07:53 05/26/19 07:53 Assessment and plan: 84 yo f w/ PMH metastatic breast CA #breast Ca -The patient was trialled on multiple cancer treatments including tamoxifen. She has been noncomplaint with these medications 2/2 adverse reactions -The patient is also frequently lost to follow up as an outpatient. -Will begin the patient on Faslodex hormonal injection once weekly -Will likely begin treatment Monday and monitor for side effects.
--- NOTE | 2019-05-31 17:54 | PN ---
Teaching Attending Note Name of Resident: Sukumar Oakley ATTENDING PHYSICIAN STATEMENT I saw and evaluated the patient. I reviewed the resident's note and discussed the case with the resident. I agree with the resident's findings and plan as documented. SUBJECTIVE: patient seeen and examined Clinically improved Offers no complaints Last Vital Signs Temp Pulse Resp BP Pulse Ox 97.9 F 86 18 93/55 L 100 05/31/19 08:35 05/31/19 14:45 05/31/19 14:45 05/31/19 14:45 05/31/19 09:10 OBJECTIVE: Lungs- clear- scoliosis Cor_rSR Soft absomen Left breast mass + axillary nodes ASSESSMENT AND PLAN: Impression: ER+ breast ca - for Faslodex therapy as out patient.
[2019-05-31] MEDS: LIDOCAINE 5% TOPICAL PATCH TP SCH (19:56)
[2019-06-01] MEDS: traMADol HCL 50 MG TABLET PO PRN ×2 (01:13→13:06)
[2019-06-01] MEDS: LIDOCAINE PATCH REMOVAL MC SCH (08:00)
--- NOTE | 2019-06-01 09:09 | PN ---
Progress Note, Physician Chief Complaint: Still C/O back pain History of Present Illness: Ca breast with mets ,Afib and CHF - Current Medication List Current Medications: Active Medications Albuterol Sulfate (Ventolin 0.083% Nebulizer Soln -) 1 amp NEB RQID PRN PRN Reason: SHORT OF BREATH/WHEEZING Alprazolam (Xanax -) 0.5 mg PO BID [facility] Last Admin: 05/31/19 21:01 Dose: 0.5 mg Apixaban (Eliquis -) 2.5 mg PO BID [facility] Last Admin: 05/31/19 21:01 Dose: 2.5 mg Buspirone HCl (Buspar -) 7.5 mg PO BID [facility] Last Admin: 05/31/19 21:01 Dose: 7.5 mg Furosemide (Lasix -) 40 mg PO DAILY [facility] Last Admin: 05/31/19 14:50 Dose: Not Given Lidocaine (Lidoderm Patch -) 1 patch TP DAILY@2000 [facility] Last Admin: 05/31/19 19:56 Dose: 1 patch Losartan Potassium (Cozaar -) 50 mg PO DAILY [facility] Last Admin: 05/31/19 14:49 Dose: Not Given Metoprolol Tartrate (Lopressor -) 25 mg PO DAILY [facility] Last Admin: 05/31/19 09:05 Dose: 25 mg Miscellaneous (Lidoderm Patch Removal) 1 each MC DAILY@0800 [facility] Last Admin: 05/31/19 09:06 Dose: 1 each Ondansetron HCl (Zofran Injection) 4 mg IVPUSH Q8H PRN PRN Reason: NAUSEA AND/OR VOMITING Potassium Chloride (K-Dur -) 20 meq PO DAILY [facility] Last Admin: 05/31/19 09:05 Dose: 20 meq Tramadol HCl (Ultram -) 50 mg PO Q6H PRN PRN Reason: PAIN 6-10 Last Admin: 06/01/19 01:13 Dose: 50 mg - Objective Vital Signs: Vital Signs Temperature 98.4 F 06/01/19 06:00 Pulse Rate 107 H 06/01/19 06:00 Respiratory Rate 20 06/01/19 06:00 Blood Pressure 101/61 06/01/19 06:00 O2 Sat by Pulse Oximetry (%) 100 05/31/19 20:32 Constitutional: Yes: Anxious Eyes: Yes: WNL HENT: Yes: WNL Neck: Yes: WNL Cardiovascular: Yes: WNL Respiratory: Yes: Poor Air Entry Gastrointestinal: Yes: WNL ...Rectal Exam: Yes: Deferred Breast(s): Yes: Left, Mass Musculoskeletal: Yes: Muscle Weakness Edema: No Neurological: Yes: Alert Labs: CBC, BMP 05/26/19 07:53 05/26/19 07:53 INR, PTT INR 1.22 (0.83-1.09) H 05/24/19 08:00 Assessment/Plan Continue same trt
[2019-06-01] MEDS: POTASSIUM CHLORIDE TABS 20 MEQ TABLET.ER (FP) PO SCH (09:39)
[2019-06-01] MEDS: LOSARTAN POTASSIUM 50 MG TABLET (FP) PO SCH (09:39)
[2019-06-01] MEDS: METOPROLOL TARTRATE 25 MG TABLET (FP) PO SCH (09:39)
[2019-06-01] MEDS: busPIRone HCL 5 MG TABLET PO SCH ×2 (09:39→21:04)
[2019-06-01] MEDS: ALPRAZolam 0.25 MG TABLET PO SCH ×2 (09:39→21:04)
[2019-06-01] MEDS: APIXABAN 2.5 MG TABLET PO SCH ×2 (09:39→21:04)
[2019-06-01] MEDS: FUROSEMIDE 40 MG TABLET (FP) PO SCH (09:40)
[2019-06-01] MEDS: LIDOCAINE 5% TOPICAL PATCH TP SCH (20:49)
[2019-06-02] MEDS: traMADol HCL 50 MG TABLET PO PRN ×2 (04:40→21:22)
[2019-06-02 08:18] LABS: HEMATOCRIT 33.1 % (32.4-45.2); HEMOGLOBIN 11.2 GM/dL (10.7-15.3); MCH 30.3 pg (25.7-33.7); MCHC 33.7 g/dl (32.0-36.0); MEAN CELL VOLUME 89.8 fl (80-96); MEAN PLT VOLUME 9.9 fl (7.5-11.1); PLATELET COUNT 212 K/MM3 (134-434); RBC 3.68 M/mm3 (3.60-5.2); WHITE BLOOD COUNT 5.7 K/mm3 (4.0-10.0)
[2019-06-02] MEDS: LIDOCAINE PATCH REMOVAL MC SCH (08:37)
[2019-06-02 08:39] LABS: ALBUMIN 3.2 g/dl (3.4-5.0); BILIRUBIN,TOTAL 0.5 mg/dL (0.2-1); BLOOD UREA NITROGEN 34.3 mg/dL (7-18); CALCIUM 8.7 mg/dL (8.5-10.1); CREATININE 0.5 mg/dL (0.55-1.3); POTASSIUM 4.3 mmol/L (3.5-5.1); TOT PROT 6.4 g/dl (6.4-8.2)
[2019-06-02 09:20] VITALS: TEMP 98.4
[2019-06-02] MEDS: FUROSEMIDE 40 MG TABLET (FP) PO SCH (09:37)
[2019-06-02] MEDS: APIXABAN 2.5 MG TABLET PO SCH ×2 (09:37→21:22)
[2019-06-02] MEDS: LOSARTAN POTASSIUM 50 MG TABLET (FP) PO SCH (09:37)
[2019-06-02] MEDS: ALPRAZolam 0.25 MG TABLET PO SCH ×2 (09:37→21:22)
[2019-06-02] MEDS: busPIRone HCL 5 MG TABLET PO SCH ×2 (09:37→21:22)
[2019-06-02] MEDS: METOPROLOL TARTRATE 25 MG TABLET (FP) PO SCH (09:37)
[2019-06-02] MEDS: POTASSIUM CHLORIDE TABS 20 MEQ TABLET.ER (FP) PO SCH (09:37)
--- NOTE | 2019-06-02 12:19 | PN ---
Progress Note, Physician Chief Complaint: Back pain better - Current Medication List Current Medications: Active Medications Alprazolam (Xanax -) 0.5 mg PO BID [facility] Last Admin: 06/02/19 09:37 Dose: 0.5 mg Apixaban (Eliquis -) 2.5 mg PO BID [facility] Last Admin: 06/02/19 09:37 Dose: 2.5 mg Buspirone HCl (Buspar -) 7.5 mg PO BID [facility] Last Admin: 06/02/19 09:37 Dose: 7.5 mg Furosemide (Lasix -) 40 mg PO DAILY [facility] Last Admin: 06/02/19 09:37 Dose: 40 mg Lidocaine (Lidoderm Patch -) 1 patch TP DAILY@1999 [facility] Last Admin: 06/01/19 20:49 Dose: 1 patch Losartan Potassium (Cozaar -) 50 mg PO DAILY [facility] Last Admin: 06/02/19 09:37 Dose: 50 mg Metoprolol Tartrate (Lopressor -) 25 mg PO DAILY [facility] Last Admin: 06/02/19 09:37 Dose: 25 mg Miscellaneous (Lidoderm Patch Removal) 1 each MC DAILY@0800 [facility] Last Admin: 06/02/19 08:37 Dose: 1 each Ondansetron HCl (Zofran Injection) 4 mg IVPUSH Q8H PRN PRN Reason: NAUSEA AND/OR VOMITING Potassium Chloride (K-Dur -) 20 meq PO DAILY [facility] Last Admin: 06/02/19 09:37 Dose: 20 meq Tramadol HCl (Ultram -) 50 mg PO Q6H PRN PRN Reason: PAIN SCALE 6-8 Last Admin: 06/02/19 04:40 Dose: 50 mg - Objective Vital Signs: Vital Signs Temperature 98.4 F 06/02/19 09:19 Pulse Rate 102 H 06/02/19 09:19 Respiratory Rate 20 06/02/19 09:19 Blood Pressure 113/48 L 06/02/19 09:19 O2 Sat by Pulse Oximetry (%) 100 06/01/19 21:00 Constitutional: Yes: No Distress Eyes: Yes: WNL HENT: Yes: WNL Neck: Yes: WNL Cardiovascular: Yes: WNL Respiratory: Yes: WNL, SOB on Exertion Gastrointestinal: Yes: Normal Bowel Sounds ...Rectal Exam: Yes: Deferred Genitourinary: Yes: WNL Edema: No Neurological: Yes: Alert Labs: CBC, BMP 06/02/19 07:05 06/02/19 07:05 INR, PTT INR 1.22 (0.83-1.09) H 05/24/19 08:00 Assessment/Plan continue asme trt
[2019-06-02] MEDS: LIDOCAINE 5% TOPICAL PATCH TP SCH (20:21)
[2019-06-03] MEDS: busPIRone HCL 5 MG TABLET PO SCH (09:25)
[2019-06-03] MEDS: POTASSIUM CHLORIDE TABS 20 MEQ TABLET.ER (FP) PO SCH (09:25)
[2019-06-03] MEDS: ALPRAZolam 0.25 MG TABLET PO SCH (09:25)
[2019-06-03] MEDS: LIDOCAINE PATCH REMOVAL MC SCH (09:26)
[2019-06-03] MEDS: FUROSEMIDE 40 MG TABLET (FP) PO SCH (09:26)
[2019-06-03] MEDS: METOPROLOL TARTRATE 25 MG TABLET (FP) PO SCH (09:26)
[2019-06-03] MEDS: LOSARTAN POTASSIUM 50 MG TABLET (FP) PO SCH (09:26)
[2019-06-03] MEDS: APIXABAN 2.5 MG TABLET PO SCH (09:26)
[2019-06-03 11:09] VITALS: BP 118/58; PULSE 110
--- NOTE | 2019-06-03 11:12 | DS ---
Physical Examination Vital Signs: Vital Signs Temperature 98.4 F 06/03/19 05:40 Pulse Rate 110 H 06/03/19 10:00 Respiratory Rate 18 06/03/19 10:00 Blood Pressure 118/58 L 06/03/19 10:00 O2 Sat by Pulse Oximetry (%) 96 06/03/19 09:00 HEENT mm moist no anemia PERRLA EOMI NECK; No JVd No bruit CHEST: CTA B/L ABD: no distention non tender Bs + EXT: no edema feet, no calf tenderness Pulses + [employer]: AOx3 non focal Labs: CBC, BMP 06/02/19 07:05 06/02/19 07:05 Discharge Summary Problems reviewed: Yes Reason For Visit: FRACTURE OF BOINE,BILATERAL PLERAL EFFUSION, Current Active Problems Carcinoma of breast (Acute) Fracture (Acute) Hypokalemia (Acute) Hypomagnesemia (Acute) Pleural effusion (Acute) Hospital Course: Patient admitted with SOB w/u shows Condition: Guarded - Instructions Diet, Activity, Other Instructions: Low Sat moderate Potasium Referrals: Pato Islas MD [Primary Care Provider] - 1 Week Diego Figueroa MD [Staff Physician] - 06/07/19 Disposition: HOME - Home Medications Comprehensive Discharge Medication List: Ambulatory Orders Alprazolam [Xanax Xr] 0.5 mg PO BID 10/14/16 Buspirone HCl [Buspar -] 7.5 mg PO BID 10/14/16 Irbesartan 150 mg PO DAILY 10/14/16 Lidocaine 5% Patch [Lidoderm -] 1 patch TP DAILY 10/14/16 Metoprolol Tartrate 25 mg PO DAILY 02/28/19 Tramadol HCl 50 mg PO PRN 02/28/19 Apixaban [Eliquis -] 2.5 mg PO BID tablet 03/05/19 Tamoxifen Citrate 20 mg PO DAILY 04/28/19 Theophylline Anhydrous [Ryder-24] 300 mg PO HS 04/28/19 Albuterol Sulfate [Proair Hfa] 2 puff IH QID PRN 05/22/19 Furosemide [Lasix] 20 mg PO DAILY #30 tablet 06/03/19 Potassium Chloride [K-Dur -] 20 meq PO DAILY #30 tablet.er 06/03/19 Prescription Drug Monitoring Program (I-STOP) results: I-STOP reviewed and issues identified
--- NOTE | 2019-06-03 11:53 | PN ---
Progress Note (short form) - Note Progress Note: 84-year-old, white female with history of permanent atrial fibrillation, hypertension, bronchial asthma since childhood, history of depression-anxiety disorder, intentional tremors, history of left breast carcinoma. No chest pain or discomfort reported. Pleural fluid is an exudate ALLERGIES: SULFA., Aspirin, Ibuprofen, Lactose Active Medications Albuterol Sulfate (Ventolin 0.083% Nebulizer Soln -) 1 amp NEB RQID PRN PRN Reason: SHORT OF BREATH/WHEEZING Apixaban (Eliquis -) 2.5 mg PO BID [facility] Last Admin: 05/29/19 21:25 Dose: 2.5 mg Buspirone HCl (Buspar -) 7.5 mg PO BID [facility] Last Admin: 05/29/19 22:00 Dose: 7.5 mg Furosemide (Lasix -) 40 mg PO DAILY [facility] Last Admin: 05/29/19 09:52 Dose: 40 mg Lidocaine (Lidoderm Patch -) 1 patch TP DAILY@1999 [facility] Last Admin: 05/29/19 21:29 Dose: 1 patch Losartan Potassium (Cozaar -) 50 mg PO DAILY [facility] Last Admin: 05/29/19 09:52 Dose: 50 mg Metoprolol Tartrate (Lopressor -) 25 mg PO DAILY [facility] Last Admin: 05/29/19 09:51 Dose: 25 mg Miscellaneous (Lidoderm Patch Removal) 1 each MC DAILY@0800 [facility] Last Admin: 05/29/19 09:52 Dose: 1 each Ondansetron HCl (Zofran Injection) 4 mg IVPUSH Q8H PRN PRN Reason: NAUSEA AND/OR VOMITING Potassium Chloride (K-Dur -) 20 meq PO DAILY [facility] Last Admin: 05/29/19 09:51 Dose: 20 meq Tramadol HCl (Ultram -) 50 mg PO Q6H PRN PRN Reason: PAIN 6-10 Last Admin: 05/30/19 02:45 Dose: 50 mg EXAMINATION: General: 84-year-old female is in no acute distress. Last Vital Signs Temp Pulse Resp BP Pulse Ox 98.4 F 110 H 18 118/58 L 96 06/03/19 05:40 06/03/19 10:00 06/03/19 10:00 06/03/19 10:00 06/03/19 09:00 Intake & Output 05/31/19 06/01/19 06/02/19 06/03/19 23:59 23:59 23:59 23:59 Intake Total 500 730 180 Balance 500 730 180 Neck: Supple. No jugular venous distention. Carotids were 2+, upstrokes were normal. No bruits were heard and no thyromegaly was present. Heart: PMI is in the 5th intercostal space. No heaves or thrills. S1 and S2 were normal. Ejection systolic murmur grade I/ was heard along the left sternal border and right intercostal space. No diastolic murmur or gallops were heard. Lungs: Slight decrease in breath sounds at the right base. Abdomen: Soft, nontender. No hepatosplenomegaly or palpable masses were felt. Bowel sounds were heard. Extremities: No calf tenderness or dependent edema. Femoral pulses were 2+, dorsalis pedis pulses were 1-2+, posterior tibial pulses could not be palpated. CBC, BMP 06/02/19 07:05 06/02/19 07:05 IMPRESSION: 1. Hypertension, hypertensive cardiovascular disease; currently normotensive. 2. Bilateral pleural effusions, exudate. 3. Permanent atrial fibrillation. 4. Recent fall with bruising of the right lower ribcage. 5. Compression fracture of T9. 6. Intentional tremors. 7. Chronic bronchial asthma. 8. Hypokalemia, corrected. 9. Hypomagnesemia. 10. Left breast CA. RECOMMENDATIONS: 1. Continue present cardiac medications. 2. Increase ambulation. 3. Oncology evaluation in progress. MISTY WOODARD M.D.
--- NOTE | 2019-06-04 12:46 | PATH ---
Cytology Non-Gynecological Report Patient Name: LUCRETIA LYNNE Med. Rec. #: [id number] /Age/Gender: 1935 (Age: 84) / F Account: [id number] Location: [address] [place] [address] Taken: 05/27/2019 Received: 05/27/2019 Reported: 06/04/2019 Physicians: Pato Islas M.D. Specimen(s) Received A: PERITONEAL FLUID CHEST RECEICED FRESH B: PERITONEAL FLUID RECEIVED IN 50% ALCOHOL Clinical History Pleural effusion Final Diagnosis PLEURAL FLUID, THORACENTESIS: SATISFACTORY FOR EVALUATION NO MALIGNANT CELLS IDENTIFIED. MACROPHAGES PRESENT. Comment: Clinical history of breast carcinoma noted. Immunohistochemistry stains (block B1) performed at [place], [place] ([id number]) and interpreted at [facility] showed the following results: CD68 highlights the scattered macrophages. Calretenin, Jolene-3, and Mammoglobin are negative. Positive and negative controls (internal if applicable) show appropriate results. Electronically Signed Trav Marquis M.D. Gross Description A. Approximately 1000cc of yellow fluid received fresh. One cytospin and one cellblock prepared. B. Approximately 100cc of yellow fluid received fixed in 50% alcohol. One cytospin and one cellblock prepared.
== END 2019-06-03 11:44 | disposition home or self-care (01) | DRG 597 ==
LOC: JER 15:49 → JERBED 19:08 → J6S 23:32
PROVIDERS: ADMIT Internal Medicine; ATTEND Internal Medicine
PROC: 0W993ZZ Drainage of Right Pleural Cavity, Percutaneous Approach (ICD-10-PCS; principal; 2019-05-27)
DX: C50.919 Malignant neoplasm of unspecified site of unspecified female breast (principal); E43 Unspecified severe protein-calorie malnutrition; S22.079A Unspecified fracture of T9-T10 vertebra, initial encounter for closed fracture; J90 Pleural effusion, not elsewhere classified; R64 Cachexia; Z68.1 Body mass index [BMI] 19.9 or less, adult; F41.9 Anxiety disorder, unspecified; I48.2 Chronic atrial fibrillation; E87.6 Hypokalemia; E83.42 Hypomagnesemia; I11.9 Hypertensive heart disease without heart failure; W19.XXXA Unspecified fall, initial encounter; Y93.9 Activity, unspecified; Y92.89 Other specified places as the place of occurrence of the external cause; Y99.9 Unspecified external cause status; I48.91 Unspecified atrial fibrillation
CPT/HCPCS: 36415; 70450-TC; 71045-TC-FY; 71250-TC; 76942; 80048; 80053; 81003; 82042; 82150; 82465; 82550; 82945; 83615; 83735; 83986; 84157; 84478; 84484; 85025; 85027; 85610; 87070; 87075; 87102; 87116; 87205; 87206; 87210; 88108; 88305-TC; 93005; 93010; 94640; 97116-GP; 97162-GP; 99282-25

== ENCOUNTER 2019-07-21 12:29 | Observation (INO) | payer OTHER ==
[2019-07-21] MEDS ORDERED: traMADol HCL 50 MG TABLET PO ONE (13:24)
[2019-07-21] MEDS ORDERED: traMADol HCL 50 MG TABLET ONE (13:41)
[2019-07-21 13:50] LABS: BASO % 0.7 % (0-2.0); EOS % 4.9 % (0-4.5); HEMATOCRIT 36.2 % (32.4-45.2); LYMPH % 35.1 % (8-40); MCH 30.7 pg (25.7-33.7); MCHC 33.2 g/dl (32.0-36.0); MEAN CELL VOLUME 92.5 fl (80-96); MEAN PLT VOLUME 9.1 fl (7.5-11.1); MONO % 7.2 % (3.8-10.2); NEUT % 52.1 % (42.8-82.8); PLATELET COUNT 184 K/MM3 (134-434); RBC 3.92 M/mm3 (3.60-5.2); RDW 15.2 % (11.6-15.6); WHITE BLOOD COUNT 5.7 K/mm3 (4.0-10.0)
--- NOTE | 2019-07-21 13:50 | PDOC ---
History of Present Illness - General Chief Complaint: Chest Pain Stated Complaint: CHEST PAIN Time Seen by Provider: 07/21/19 12:42 - History of Present Illness Initial Comments: 07/21/19 13:28 HPI: 84 y/o F with hx of AFib on eliquis, asthma, severe OA, active breast cancer not receiving tx, HTN, anxiety presenting with chest pain that started 3 hours ago. Pain is midsternal and non radiating. It lasted for 1 minute and was sharp in nature; 5/10 and self resolved without intervention. It occurred while at rest. She also reports severe right shoulder pain with radiation to the right scapula since a fall yesterday. She reports returning to bed after urinating and feeling LH and fell on to the bed and landed on her right shoulder. Pain was severe but seemed to resolved throughout the day. She feels the pain is worse today and is causing her to feel nauseous but denies emesis. Denies GUTIERREZ, SOB, palpitations, abd pain, change in vision, diaphoresis. She tried tramadol and tylenol with some pain relief. Of note, she reports never having chest pain before and it was her fear due to recently diagnosed Afib and pleural effusions s/p thora that brought her to the ED. PMHx: as noted above ROS: as noted SHx: Denies tobacco use; no alcohol use; no rec drugs Allergies: NKDA ROS: GENERAL/CONSTITUTIONAL: No fever or chills. No weakness. HEAD, EYES, EARS, NOSE AND THROAT: No change in vision. No ear pain or discharge. No sore throat. CARDIOVASCULAR: +chest pain; no shortness of breath RESPIRATORY: No cough, wheezing, or hemoptysis. GASTROINTESTINAL: +nausea; no vomiting, diarrhea or constipation. GENITOURINARY: No dysuria, frequency, or change in urination. MUSCULOSKELETAL: +joint pain and back pain SKIN: No rash NEUROLOGIC: No headache, vertigo, loss of consciousness, or change in strength/ sensation. ENDOCRINE: No increased thirst. No abnormal weight change HEMATOLOGIC/LYMPHATIC: No anemia, easy bleeding, or history of blood clots. ALLERGIC/IMMUNOLOGIC: No hives or skin allergy. PE: GENERAL: Awake, alert, and fully oriented, mild distress HEAD: No signs of trauma, normocephalic, atraumatic EYES: EOMI, sclera anicteric, conjunctiva clear ENT: Auricles normal inspection, hearing grossly normal, nares patent, oropharynx clear without exudates. Moist mucosa NECK: Normal ROM, no lymphadenopathy LUNGS: No increased work of breathing, symmetrical chest rise, end expiratory wheezing throughout HEART: tachycardia, irrgeular rhythm, no murmurs, peripheral pulses 2+ and equal bilaterally, no LE edema ABDOMEN: Soft, nondistended, nontender, normoactive bowel sounds. No guarding, no rebound. No masses. No CVAT EXTREMITIES: Right shoulder with limited ROM and ttp at humeral head NEUROLOGICAL: Cranial nerves II through XII grossly intact. Normal speech, normal gait, no focal sensorimotor deficits SKIN: Warm, Dry, normal turgor, no rashes or lesions noted Past History - Past Medical History Allergies/Adverse Reactions: Allergies Allergy/AdvReac Type Severity Reaction Status Date / Time aspirin Allergy Severe Verified 05/21/19 16:30 codeine Allergy Severe Verified 05/29/19 12:33 ibuprofen [From Motrin] Allergy Severe Verified 05/21/19 16:30 Sulfa (Sulfonamide Allergy Severe Verified 05/21/19 16:30 Antibiotics) Fish Containing Products Allergy Unknown Verified 05/29/19 12:32 lactose AdvReac Verified 05/21/19 16:30 Home Medications: Ambulatory Orders Alprazolam [Xanax Xr] 0.5 mg PO BID 10/14/16 Buspirone HCl [Buspar -] 7.5 mg PO BID 10/14/16 Irbesartan 150 mg PO DAILY 10/14/16 Lidocaine 5% Patch [Lidoderm -] 1 patch TP DAILY 10/14/16 Metoprolol Tartrate 25 mg PO DAILY 02/28/19 Tramadol HCl 50 mg PO PRN 02/28/19 Apixaban [Eliquis -] 2.5 mg PO BID tablet 03/05/19 Tamoxifen Citrate 20 mg PO DAILY 04/28/19 Theophylline Anhydrous [Ryder-24] 300 mg PO HS 04/28/19 Albuterol Sulfate [Proair Hfa] 2 puff IH QID PRN 05/22/19 Furosemide [Lasix] 20 mg PO DAILY #30 tablet 06/03/19 Potassium Chloride [K-Dur -] 20 meq PO DAILY #30 tablet.er 06/03/19 Anemia: No Asthma: Yes Cancer: Yes (BREAST) Cardiac Disorders: Yes (AFIB) CVA: No COPD: No CHF: No Dementia: No Diabetes: No GI Disorders: No Disorders: No HTN: Yes Hypercholesterolemia: Yes Liver Disease: No Psychiatric Problems: Yes (ANXIETY) Seizures: No Thyroid Disease: No - Surgical History Abdominal Surgery: No Appendectomy: No Cardiac Surgery: No Cholecystectomy: No Lung Surgery: No Neurologic Surgery: No Orthopedic Surgery: No - Immunization History Td Vaccination: Yes TDAP Vaccination: Yes Immunization Up to Date: Yes - Psycho Social/Smoking Cessation Hx Smoking History: Never smoked Have you smoked in the past 12 months: No If you are a former smoker, when did you quit?: 1939 Hx Alcohol Use: No Drug/Substance Use Hx: No Substance Use Type: None Hx Substance Use Treatment: No *Physical Exam - Vital Signs Last Vital Signs Temp Pulse Resp BP Pulse Ox 97.5 F L 95 H 16 156/80 94 L 07/21/19 12:45 07/21/19 12:45 07/21/19 12:30 07/21/19 12:45 07/21/19 12:45 ED Treatment Course - LABORATORY CBC & Chemistry Diagram: 07/21/19 13:35 07/21/19 13:35 - RADIOLOGY Radiology Studies Ordered: Category Date Time Status CHEST X-RAY PORTABLE* [RAD] Stat Radiology 07/21/19 13:23 Ordered HUMERUS-RIGHT [RAD] Stat Radiology 07/21/19 13:24 Ordered SHOULDER-RIGHT [RAD] Stat Radiology 07/21/19 13:24 Ordered Medical Decision Making - Medical Decision Making 07/21/19 14:12 84 y/o F with hx of AFib on eliquis, asthma, severe OA, active breast cancer not receiving tx, HTN, anxiety presenting with chest pain that started 3 hours ago with pre-syncope yesterday; also with severe shoulder pain complaints. -cbc, cmp, cardiac profile, mg , phos, ekg, cxr -pain control 07/21/19 14:45 Mg 1.2; will replete CXR with no acute pathology Shoulder and humerus XR with no acute fx or dislocation will admit to Dr Islas Discharge - Discharge Information Problems reviewed: Yes Clinical Impression/Diagnosis: Pre-syncope Chest pain Qualifiers: Chest pain type: unspecified Qualified Code(s): R07.9 - Chest pain, unspecified Shoulder pain, right Qualifiers: Chronicity: unspecified Qualified Code(s): M25.511 - Pain in right shoulder Condition: Stable - Admission Yes - Follow up/Referral Referrals: Pato Islas MD [Primary Care Provider] - - Patient Discharge Instructions - Post Discharge Activity
[2019-07-21 14:07] LABS: INR 1.13 (0.83-1.09); PROTHROMBIN TIME (PATIENT) 13.3 SEC (9.7-13.0)
[2019-07-21 14:10] LABS: ACTIVATED PTT 35.9 SECONDS (25.2-36.5)
[2019-07-21 14:19] LABS: ALBUMIN 3.5 g/dl (3.4-5.0); BILIRUBIN,TOTAL 0.6 mg/dL (0.2-1); BLOOD UREA NITROGEN 17.7 mg/dL (7-18); CALCIUM 8.7 mg/dL (8.5-10.1); CREATININE 0.4 mg/dL (0.55-1.3); MAGNESIUM 1.3 mg/dL (1.8-2.4); POTASSIUM 3.8 mmol/L (3.5-5.1); TOT PROT 6.6 g/dl (6.4-8.2)
[2019-07-21] MEDS ORDERED: MAGNESIUM SULF 50% (8.12 MEQ/2 ML-1 GM VIAL) IVPB ONE (14:21)
[2019-07-21] MEDS ORDERED: MAGNESIUM 1GM/D5W - 2 GM/200 ML IVPB IVPB ONE (15:23)
[2019-07-21] MEDS ORDERED: ACETAMINOPHEN 1000 MG/100 ML VIAL (NON FORMULARY) IVPB ONE (15:24)
[2019-07-21] MEDS ORDERED: ACETAMINOPHEN INJECTION 100 ML IVPB ONE (15:29)
--- NOTE | 2019-07-21 15:42 | PDOC ---
Documentation entered by Teri Casillas SCRIBE, acting as scribe for Margarita Carrizales MD. Margarita Carrizales MD: This documentation has been prepared by the Sonja pearson Joy, SCRIBE, under my direction and personally reviewed by me in its entirety. I confirm that the documentation accurately reflects all work, treatment, procedures, and medical decision making performed by me. Attending Attestation - Resident Resident Name: Kaylie Zuniga - ED Attending Attestation I have performed the following: I have examined & evaluated the patient, The case was reviewed & discussed with the resident, I agree w/resident's findings & plan, Exceptions are as noted - HPI HPI: 07/21/19 15:44 The patient is an 84 year old female with significant past medical history of permanent Afib (on Eliquis), s/p ME, breast cancer, hypertension, bronchial asthma, depression-anxiety disorder, intentional tremors, osteoarthritis (left hip and right shoulder), and frequent falls who presents to the ED s/p episode of sharp, midsternal, nonpleuritic, non radiation chest pain lasting a few minutes at a time. As per patient, her symptoms onset approximately 3 hours prior to her arrival and has since resolved. She is unaware if she ever had a similar episode in the past. Patient notes a recent fall yesterday while attempting to ambulate from the bathroom at which time she felt lightheaded and fell on her right side onto her bed. She notes at the time of her fall she heard a crack in her right shoulder. Patient endorses chronic right shoulder pain which is controlled with Tramadol. She took Tramadol and Tylenol, without relief. She denies any shortness of breath, palpitations, diaphoresis, LOC, nausea, or vomiting. She denies any focal changes in strength/sensation. She denies recent dysuria, frequency, urgency or hematuria. Denies fevers/chill. Allergies: Aspirin, Codeine, Ibuprofen, Sulfa (Sulfonamide Antibiotics), Fish Containing Products, Lactose PCP: Dr. Islas Industrial Sewer: Dr. Mejia - Physicial Exam PE: 07/21/19 15:34 agree with resident exam - Medical Decision Making 07/21/19 15:35 84-year-old female history of AFib on eliquis, asthma, severe OA, active breast cancer, HTN presents the emergency department with right shoulder pain after a fall onto her bed yesterday as well as chest pain. Her fall yesterday was preceded by lightheadedness. Vitals within normal limits. Exam with right proximal humeral tenderness to palpation, but no deformities. +full range of motion and extremity is neurovascularly intact. EKG with A. fib and RVR and PVCs, however no obvious ST changes. Differential includes acute coronary syndrome versus PE versus musculoskeletal pain. Unlikely PE as patient is taking Eliquis for her A. fib. Patient has a moderate heart score and thus will admit to observation given chest pain as well as syncope yesterday. Case has been discussed with Dr. Real, patient has been admitted for further management. Case discussed in detail with admitting physician including history, physical exam and ancillary studies. Admitting physician has assumed care for the patient, will follow all pending diagnostics and will complete the evaluation and treatment. Heart Score/ECG Review - History History: Slightly suspicious - Electrocardiogram EKG: Non specific repolarization disturbance - Age Age: >/= 65 - Risk Factors Based on the list above the patient has:: >/=3 risk factors or Hx atherosclerotic disease - Troponin Troponin: </= normal limit - Score Heart Score - Total: 5
[2019-07-21] MEDS ORDERED: busPIRone HCL 5 MG TABLET PO ONE (16:45)
[2019-07-21] MEDS ORDERED: METOPROLOL TARTRATE 25 MG TABLET (FP) PO ONE (16:45)
[2019-07-21] MEDS ORDERED: APIXABAN 2.5 MG TABLET PO ONE (16:50)
[2019-07-21] MEDS ORDERED: METOPROLOL TARTRATE 25 MG TABLET (FP) ONE (16:53)
[2019-07-21] MEDS ORDERED: ALPRAZolam 0.25 MG TABLET ONE (16:53)
[2019-07-21] MEDS ORDERED: APIXABAN 5 MG TABLET ONE (16:53)
[2019-07-21] MEDS ORDERED: busPIRone HCL 5 MG TABLET ONE (16:54)
[2019-07-21] MEDS ORDERED: LIDOCAINE 5% TOPICAL PATCH ONE (17:07)
[2019-07-21] MEDS ORDERED: LIDOCAINE 5% TOPICAL PATCH TP ONE (17:08)
[2019-07-21] MEDS: ALPRAZolam 0.25 MG TABLET PO PRN (17:11)
[2019-07-21] MEDS ORDERED: LIDOCAINE PATCH REMOVAL MC SCH (22:00)
[2019-07-21] MEDS ORDERED: APIXABAN 2.5 MG TABLET PO SCH (22:00)
[2019-07-22] MEDS: ACETAMINOPHEN 325 MG TABLET (FP) PO PRN ×2 (01:37→09:29)
[2019-07-22] MEDS: traMADol HCL 50 MG TABLET PO PRN ×4 (01:37→21:29)
[2019-07-22] MEDS ORDERED: ALBUTEROL SO4 8 GM HFA INHALER IH PRN (09:21)
--- NOTE | 2019-07-22 09:26 | HP ---
Admitting History and Physical - Past Medical History ...: No - Smoking History Smoking history: Former smoker Have you smoked in the past 12 months: No If you are a former smoker, when did you quit?: 1939 - Alcohol/Substance Use Hx Alcohol Use: No Home Medications - Allergies Allergies/Adverse Reactions: Allergies Allergy/AdvReac Type Severity Reaction Status Date / Time aspirin Allergy Severe Verified 05/21/19 16:30 codeine Allergy Severe Verified 05/29/19 12:33 ibuprofen [From Motrin] Allergy Severe Verified 05/21/19 16:30 Sulfa (Sulfonamide Allergy Severe Verified 05/21/19 16:30 Antibiotics) Fish Containing Products Allergy Unknown Verified 05/29/19 12:32 lactose AdvReac Verified 05/21/19 16:30 - Home Medications Home Medications: Ambulatory Orders Alprazolam [Xanax Xr] 0.5 mg PO BID 10/14/16 Buspirone HCl [Buspar -] 7.5 mg PO BID 10/14/16 Lidocaine 5% Patch [Lidoderm -] 1 patch TP HS 10/14/16 Metoprolol Tartrate 25 mg PO BID 02/28/19 Tramadol HCl 50 mg PO PRN 02/28/19 Apixaban [Eliquis -] 2.5 mg PO BID tablet 03/05/19 Theophylline Anhydrous [Ryder-24] 300 mg PO HS 04/28/19 Albuterol Sulfate [Proair Hfa] 2 puff IH QID PRN 05/22/19 Potassium Chloride [K-Dur -] 20 meq PO DAILY #30 tablet.er 06/03/19 Furosemide [Lasix] 20 mg PO ASDIR 07/21/19 Physical Examination Vital Signs: Vital Signs Temperature 97.9 F 07/22/19 05:00 Pulse Rate 80 07/22/19 05:00 Respiratory Rate 18 07/22/19 06:00 Blood Pressure 133/89 07/22/19 05:00 O2 Sat by Pulse Oximetry (%) 98 07/22/19 06:00 Labs: CBC, BMP 07/21/19 13:35 07/21/19 13:35
[2019-07-22] MEDS: ALPRAZolam 0.25 MG TABLET PO PRN (09:30)
--- NOTE | 2019-07-22 10:06 | EKG ---
Test Reason : Blood Pressure : / mmHG Vent. Rate : 102 BPM Atrial Rate : 098 BPM P-R Int : 000 ms QRS Dur : 080 ms QT Int : 344 ms P-R-T Axes : 000 065 048 degrees QTc Int : 448 ms ATRIAL FIBRILLATION WITH RAPID VENTRICULAR RESPONSE WITH PREMATURE VENTRICULAR OR ABERRANTLY CONDUCTED COMPLEXES POSSIBLE ANTERIOR INFARCT , AGE UNDETERMINED ABNORMAL ECG WHEN COMPARED WITH ECG OF 24-MAY-2019 19:07, T WAVE VARIATION Confirmed by LIZET LUTZ, VÍCTOR ([id number]) on 07/22/2019 10:06:36 AM Referred By: Confirmed By:VÍCTOR HINDS MD
[2019-07-22] MEDS: METOPROLOL TARTRATE 25 MG TABLET (FP) PO SCH ×2 (12:05→21:29)
[2019-07-22] MEDS: APIXABAN 2.5 MG TABLET PO SCH ×2 (12:05→21:29)
[2019-07-22] MEDS: POTASSIUM CHLORIDE TABS 20 MEQ TABLET.ER (FP) PO SCH (12:05)
[2019-07-22] MEDS: busPIRone HCL 5 MG TABLET PO SCH ×2 (12:09→21:29)
--- NOTE | 2019-07-22 12:41 | HP ---
DATE OF ADMISSION: 07/21/2019 HISTORY: This is an 84-year-old female with a history of osteoarthritis, hypertension. Lives at home with her son. The son brought her to the ER yesterday morning with complaints of occasional chest pain. She had fallen on the bed and also complaining of right shoulder pain for the last 3 days. In the ER, EKG was no acute changes. Troponin negative but admitted with diagnosis of atypical chest pain also shoulder pain. Shoulder x-rays, chest x-ray, no acute fracture. Chronic osteoarthritis changes noted around both shoulders. This morning, she is complaining of pain shoulder. Had some chest pains last night, not this morning. PHYSICAL EXAMINATION: Vital Signs: BP 134/90, pulse 80, respirations 20, temperature 98. HEENT: Unremarkable. Neck: Supple. No JVD. Lungs: Clear. Heart: S1, S2 normal. No S3, S4. Abdomen: Soft. Extremities: Range of motion right shoulder very painful. Left shoulder is within normal limits. Neurologic: Grossly normal. LABORATORY REPORTS: WBC 5.7, hemoglobin 12, platelets 184. Chemistry; electrolytes are normal. BUN 17, creatinine 0.4, blood sugar 84. Troponins are negative. Albumin 3.5. Chest x-ray negative. Shoulder, no fracture. IMPRESSION: 1. Intractable chest pain. 2. Atypical chest pain. PLAN: Pain medication for the shoulder pain. Cardiology evaluation, Dr. Mejia. We will follow. BRET HASSAN M.D. [id number]
--- NOTE | 2019-07-22 14:06 | CONS ---
CARDIOLOGY CONSULTATION DATE OF CONSULTATION: DATE OF DICTATION: 07/22/2019 REQUESTING PHYSICIAN: Pato Islas MD CHIEF COMPLAINT: Chest pain. HISTORY: Patient is an 84-year-old white female with longstanding history of hypertension, hypertensive cardiovascular disease, permanent atrial fibrillation, history of bronchial asthma, depression, and anxiety disorder. She also has history of osteoarthritis, history of multiple falls, history of chronic lightheadedness and dizziness. She also has left breast carcinoma that is currently untreated. Patient states that she has been having experiencing severe retrosternal chest discomfort that started a day prior to admission. Initial episode lasted 2-3 minutes and abated spontaneously. The pain was nonradiating, and there were no associated symptoms of shortness of breath, diaphoresis, nausea, or vomiting. The following day, she went to the bathroom and came back and sat on the bed and felt lightheaded and dizzy and states that the room was spinning. She got up and again complained of retrosternal, pressure-like chest discomfort that radiated to the intrascapular area. There were no associated symptoms. The pain, again, persisted for 2-3 minutes. In view of repeated episodes of chest discomfort, the son brought her to the emergency room. Since being here, she has had no further chest pain or discomfort. There is no history of presyncope or syncope. No history of cough or expectoration. PAST HISTORY: As mentioned in the history of present illness. 1. History of fall with fracture of the rib and left pleural effusion. 2. History of congestive heart failure. SURGICAL HISTORY: She has had stitches to her right elbow. SOCIAL HISTORY: Not . Has 2 sons who are healthy. Stopped smoking at the age of 51. Smoked from the teenage years and smoked approximately 1 pack of cigarettes per week. She has a social drink. There is no history of excessive use of caffeine. FAMILY HISTORY: Father of tuberculosis in his 40s. Mother suddenly in her 60s. Cause is unknown. Has 3 brothers and 3 sisters. Her older brother committed suicide in his 40s and had depression. Brother of carcinoma of the stomach at the age of 65. Her 3rd brother of complications of a carcinoma of unknown etiology. He in his 70s. She has an older sister who is in her 90s and is alive. A younger sister is estranged, and she has no knowledge of her medical history. Her 3rd sister of carcinoma in her 80s. Site uncertain. ALLERGIES: SULFA and MOTRIN, which apparently cause an anaphylactic shock. CURRENT MEDICATIONS: As follows: Lidoderm patch 1 daily, Xanax 0.5 mg p.o. b.i.d., Eliquis 2.5 mg p.o. b.i.d., BuSpar 7.5 mg b.i.d., albuterol inhaler 2 inhalations q.i.d. p.r.n., metoprolol succinate 25 mg p.o. b.i.d., Lasix 20 mg p.o. daily, Ultram 50 mg p.o. every 6 p.r.n., potassium supplement 20 mg p.o. daily, Theophylline 300 mg p.o. daily. REVIEW OF SYSTEMS: Constitutional: No history of chills, fever, or night sweats. Patient has chronic cachectic. HEENT: No history of headaches, diplopia, or blurred vision. No history of epistaxis, hoarseness, tinnitus, or deafness. Cardiovascular: See history of present illness. Respiratory: No history of cough, expectoration, or hemoptysis. Gastrointestinal: No history of nausea, vomiting, melena, or hematemesis. No history of abdominal pain or discomfort. Denies any change in bowel habits. Endocrine: No history of polyuria or polydipsia. No history of intolerance to cold or warm weather. Neurological: No history of seizures or syncope. History of chronic dizziness and lightheadedness. No history of focal weakness. Musculoskeletal: History of general osteoarthritis and chronic pain involving the right shoulder. Hematological: No history of anemia, ecchymosis, or bleeding. PHYSICAL EXAMINATION: General: An 83-year-old female who was in in no acute distress. No pallor, cyanosis, clubbing, or jaundice. Vital Signs: Blood pressure 133/78 mmHg, pulse 80 beats per minute and irregularly irregular, respirations 18 per minute, temperature 97.9 degrees Fahrenheit. Neck: Supple. No jugular venous distention. Carotids are 2+. Upstrokes are normal. No bruits are heard. No thyromegaly is present. Heart: PMI is in the 5th intercostal space. No heaves or thrills. S1 is . S2 are normal. Grade 1/6 decrescendo systolic murmur is heard along the left sternal border. No diastolic murmur or gallops are heard. Lungs: Clear on auscultation. Chest: Normal AP diameter. Expansion is symmetrical. No tenderness is elicited. Abdomen: Soft, nontender. No hepatosplenomegaly or palpable masses are felt. Bowel sounds are present. Extremities: No calf tenderness or dependent edema. Femoral pulses are 2+. Dorsalis pedis pulses are 1+. Dorsalis pedis pulses cannot be palpated. LABORATORY DATA: ECG reported as atrial fibrillation with rapid ventricular response with premature ventricular aberrantly conducted complexes. Possibility of anterior infarct age indeterminant. When compared to ECG of May 24, 2019, T wave variations. CBC; WBC 5700, hemoglobin 12.0 g/dL, platelet count 184,000. Chemistry July 21, 2019, 1335; sodium 140, potassium 3.8, chloride 106, CO2 is 29 mmol/L, BUN 17.7, creatinine 0.4 mg/dL. Random glucose 84 mg/dL, calcium 8.7 mg/dL. Normal LFTs. Magnesium 1.3 mg/dL. CK less than 0.02. X-ray chest July 21, 2019, AP view of the chest has been submitted since the prior May 27, 2019. The bibasilar atelectasis and pleural has resolved. There is still large heart with mild hyperaeration. High normal aorta and normal hilar. There are degenerative spine and shoulder changes with possible old humeral trauma. These appear unchanged from May 27, 2019. IMPRESSION: 1. Chest pain syndrome, etiology: A. Coronary artery disease, angina pectoris needs exclusion. B. Pain of musculoskeletal origin. 2. Hypertension, hypertensive cardiovascular disease. 3. Permanent atrial fibrillation. 4. Hypokalemia. 5. History of left breast carcinoma. 6. History of bronchial asthma. 7. History of intentional tremors (chronic). RECOMMENDATIONS: 1. Follow up ECG. 2. Lexiscan myocardial perfusion study. 3. Continue medications as outlined. 4. If chest pains were to recur, consider adding oral nitrites. 5. Further suggestions will depend upon the results of the above-mentioned tests. PROGNOSIS: Guarded. Thank you for your referral. MISTY WOODARD M.D. [id number]
[2019-07-22] MEDS: LIDOCAINE 5% TOPICAL PATCH TP SCH (21:30)
[2019-07-22] MEDS ORDERED: THEOPHYLLINE ANHYDROUS 100 MG CAP.ER.24H PO SCH (22:00)
[2019-07-23] MEDS ORDERED: ALPRAZolam 0.25 MG TABLET PO STA (06:54)
[2019-07-23] MEDS ORDERED: LORazepam 2 MG/ML SDV VIAL ONE (07:13)
[2019-07-23] MEDS ORDERED: LORazepam 2 MG/ML SDV VIAL IM PRN (07:20)
--- NOTE | 2019-07-23 07:21 | RAPID ---
Physical Examination Vital Signs: Vital Signs Temperature 98.6 F 07/23/19 05:16 Pulse Rate 105 H 07/23/19 05:16 Respiratory Rate 20 07/23/19 05:16 Blood Pressure 118/75 07/23/19 05:16 O2 Sat by Pulse Oximetry (%) 98 07/22/19 21:00 Vitals at 7:10PM BP: 151/80 HR 110 O2-98% Vitals at 7:20 PM BP: 136/81 HR:84 O2-98% Findings/Remarks: Rapid response called at 7:09 AM. Patient was twitching, but alert and oriented. Patient had received her dose of Xanax 0.5 mg approximately 15 minutes before event. Initial vitals were: BP of 151/80, HR of 110, and O2 saturation of 98%. Patient was given 0.25 mg of Ativan IV push, and she returned to baseline. Blood pressure was 136/81, HR of 84, O2 of 98%. CT head was ordered, Neurology was consulted, and CBC, CMP, Mag, and Phos levels were ordered. Labs: CBC, BMP 07/21/19 13:35
[2019-07-23] MEDS ORDERED: traMADol HCL 50 MG TABLET PO PRN (07:30)
--- NOTE | 2019-07-23 08:47 | PN ---
Progress Note, Physician History of Present Illness: Early this am rapid response was called because of some facial twitching On exam no focal deficit,CT neg Evaluated by Dr Mejia advised Stress test, pt is going for that now - Current Medication List Current Medications: Active Medications Acetaminophen (Tylenol -) 650 mg PO Q6H PRN PRN Reason: PAIN LEVEL 1-5 Last Admin: 07/22/19 09:29 Dose: 650 mg Albuterol Sulfate (Ventolin Hfa Inhaler -) 2 puff IH QID PRN PRN Reason: Dyspnea Apixaban (Eliquis -) 2.5 mg PO BID [facility] Last Admin: 07/22/19 21:29 Dose: 2.5 mg Buspirone HCl (Buspar -) 7.5 mg PO BID [facility] Last Admin: 07/22/19 21:29 Dose: 7.5 mg Furosemide (Lasix -) 20 mg PO ASDIR [facility] Lidocaine (Lidoderm Patch -) 1 patch TP HS [facility] Last Admin: 07/22/19 21:30 Dose: 1 patch Lorazepam (Ativan Injection -) 0.25 mg IM ONCE PRN PRN Reason: WITHDRAWAL(CONT SUBST) Stop: 07/24/19 07:19 Metoprolol Tartrate (Lopressor -) 25 mg PO BID [facility] Last Admin: 07/22/19 21:29 Dose: 25 mg Miscellaneous (Lidoderm Patch Removal) 1 each MC DAILY@1000 [facility] Non-Formulary Medication (Alprazolam [Xanax Xr]) 0.5 mg PO BID [facility] Potassium Chloride (K-Dur -) 20 meq PO DAILY [facility] Last Admin: 07/22/19 12:05 Dose: 20 meq Theophylline (Ryder-24) 300 mg PO HS [facility] Tramadol HCl (Ultram -) 50 mg PO Q6H PRN PRN Reason: PAIN LEVEL 6-10 Last Admin: 07/22/19 21:29 Dose: 50 mg Tramadol HCl (Ultram -) 50 mg PO PRN [facility] - Objective Vital Signs: Vital Signs Temperature 98 F 07/23/19 08:32 Pulse Rate 98 H 07/23/19 08:32 Respiratory Rate 18 07/23/19 08:32 Blood Pressure 114/70 07/23/19 08:32 O2 Sat by Pulse Oximetry (%) 98 07/22/19 21:00 Constitutional: Yes: Anxious Eyes: Yes: WNL HENT: Yes: WNL Neck: Yes: WNL Cardiovascular: Yes: Pulse Irregular Respiratory: Yes: WNL Gastrointestinal: Yes: Normal Bowel Sounds ...Rectal Exam: Yes: Deferred Genitourinary: Yes: WNL Peripheral Pulses WNL: Yes Neurological: Yes: Alert Labs: CBC, BMP 07/21/19 13:35 07/21/19 13:35 INR, PTT INR 1.13 (0.83-1.09) H 07/21/19 13:35 - ....Imaging Cat Scan: Report Reviewed
--- NOTE | 2019-07-23 08:58 | CON.NEURO ---
Consult Consult Specialty:: Inez Referred by:: Roshan Reason for Consultation:: facial twitch - History of Present Illness History of Present Illness: 84 year sold woman with PMH CAD OA Cardiac Arrthymia Breast Ca on AC Frozen shoulder Anxiety lives with her son This am patient had facal twitching Patient was noted with increasing eye twitch with no LOC Rapid response called in - History Source History Provided By: Medical Record Limitations to Obtaining History: Clinical Condition - Past Medical History ...: No - Alcohol/Substance Use Hx Alcohol Use: No - Smoking History Smoking history: Former smoker Have you smoked in the past 12 months: No If you are a former smoker, when did you quit?: 1939 Home Medications - Allergies Allergies/Adverse Reactions: Allergies Allergy/AdvReac Type Severity Reaction Status Date / Time aspirin Allergy Severe Verified 05/21/19 16:30 codeine Allergy Severe Verified 05/29/19 12:33 ibuprofen [From Motrin] Allergy Severe Verified 05/21/19 16:30 Sulfa (Sulfonamide Allergy Severe Verified 05/21/19 16:30 Antibiotics) Fish Containing Products Allergy Unknown Verified 05/29/19 12:32 lactose AdvReac Verified 05/21/19 16:30 - Home Medications Home Medications: Ambulatory Orders Alprazolam [Xanax Xr] 0.5 mg PO BID 10/14/16 Buspirone HCl [Buspar -] 7.5 mg PO BID 10/14/16 Lidocaine 5% Patch [Lidoderm -] 1 patch TP HS 10/14/16 Metoprolol Tartrate 25 mg PO BID 02/28/19 Tramadol HCl 50 mg PO PRN 02/28/19 Apixaban [Eliquis -] 2.5 mg PO BID tablet 03/05/19 Theophylline Anhydrous [Ryder-24] 300 mg PO HS 04/28/19 Albuterol Sulfate [Proair Hfa] 2 puff IH QID PRN 05/22/19 Potassium Chloride [K-Dur -] 20 meq PO DAILY #30 tablet.er 06/03/19 Furosemide [Lasix] 20 mg PO ASDIR 07/21/19 Review of Systems - Review of Systems Constitutional: reports: No Symptoms Eyes: reports: No Symptoms Physical Exam-Neuro Vital Signs: Vital Signs Temperature 98 F 07/23/19 08:32 Pulse Rate 98 H 07/23/19 08:32 Respiratory Rate 18 07/23/19 08:32 Blood Pressure 114/70 07/23/19 08:32 O2 Sat by Pulse Oximetry (%) 98 07/22/19 21:00 Constitutional: Yes: Well Nourished Neck: Yes: WNL Labs: CBC, BMP 07/21/19 13:35 07/21/19 13:35 INR, PTT INR 1.13 (0.83-1.09) H 07/21/19 13:35 - Neuro Exam Level Of Consciousness: Yes: Oriented to Person, Oriented to Place, Oriented to Time Eyes: Yes: PERRLA Speech: WNL Dominant Hand: Right Cranial Nerves II-XII Intact: Yes Gag: Present DTR's: 0 Left Bicep, 0 Right Bicep, 0 Left Brachioradialis, 0 Right Brachioradialis Response to light touch: Abnormal Response to pain prick: Abnormal Response to temperature: Normal Response to vibration: Normal Movement Disorders: Tremors Motor Strength: 3/5: Left Arm, Right Arm, Left Leg, Right Leg Gait: Deferred Imaging - Results Cat Scan: Image Reviewed Problem List - Problems (1) Pre-syncope Assessment/Plan: ?? medicine induced Rule out seizure partial 1. . MRI of the brain with no Seymour 2. Sz precautions 3. EEG 4. Continue Elliquis 5. taper Tramadol 6. Ativan prn 7. prolactin level 8. No ASA Thank you Ronald Wiley MD Code(s): R55 - SYNCOPE AND COLLAPSE
[2019-07-23] MEDS ORDERED: LORazepam 2 MG/ML SDV VIAL IVPUSH ONE (09:15)
[2019-07-23] MEDS ORDERED: REGADENOSON 0.4 MG/5 ML PRE-FILLED SYRINGE IVPUSH ONE ×2 (09:20→09:45)
[2019-07-23] MEDS ORDERED: LIDOCAINE PATCH REMOVAL MC SCH (10:00)
--- NOTE | 2019-07-23 10:44 | EKG ---
Test Reason : Blood Pressure : / mmHG Vent. Rate : 096 BPM Atrial Rate : 394 BPM P-R Int : 000 ms QRS Dur : 082 ms QT Int : 352 ms P-R-T Axes : 000 051 006 degrees QTc Int : 444 ms POOR DATA QUALITY, INTERPRETATION MAY BE ADVERSELY AFFECTED ATRIAL FIBRILLATION WITH PREMATURE VENTRICULAR OR ABERRANTLY CONDUCTED COMPLEXES ABNORMAL ECG Confirmed by MD RENEE, IRENE ([id number]) on 07/23/2019 10:43:47 AM Referred By: SONYA QUEEN DR Confirmed By:IRENE DURAN MD
[2019-07-23] MEDS ORDERED: AMINOPHYLLINE 250 MG/10 ML VIAL ONE (11:48)
[2019-07-23] MEDS ORDERED: AMINOPHYLLINE 250 MG/10 ML VIAL IVPUSH ONE (12:00)
[2019-07-23] MEDS: POTASSIUM CHLORIDE TABS 20 MEQ TABLET.ER (FP) PO SCH (13:27)
[2019-07-23] MEDS: busPIRone HCL 5 MG TABLET PO SCH ×2 (13:27→21:03)
[2019-07-23] MEDS: LIDOCAINE PATCH REMOVAL MC SCH (13:28)
[2019-07-23] MEDS: METOPROLOL TARTRATE 25 MG TABLET (FP) PO SCH ×2 (13:28→21:03)
[2019-07-23] MEDS: APIXABAN 2.5 MG TABLET PO SCH ×2 (13:28→21:03)
[2019-07-23] MEDS: FUROSEMIDE 20 MG TABLET (FP) PO SCH (14:33)
[2019-07-23 15:52] LABS: BASO % 0.4 % (0-2.0); EOS % 1.7 % (0-4.5); HEMATOCRIT 32.6 % (32.4-45.2); HEMOGLOBIN 10.8 GM/dL (10.7-15.3); LYMPH % 21.3 % (8-40); MCH 30.4 pg (25.7-33.7); MEAN CELL VOLUME 92.1 fl (80-96); MONO % 7.9 % (3.8-10.2); NEUT % 68.7 % (42.8-82.8); PLATELET COUNT 198 K/MM3 (134-434); RBC 3.54 M/mm3 (3.60-5.2); RDW 15.2 % (11.6-15.6); WHITE BLOOD COUNT 6.7 K/mm3 (4.0-10.0)
[2019-07-23 16:23] LABS: BILIRUBIN,TOTAL 0.6 mg/dL (0.2-1); CALCIUM 8.7 mg/dL (8.5-10.1); CREATININE 0.4 mg/dL (0.55-1.3); MAGNESIUM 1.8 mg/dL (1.8-2.4); PHOSPHOROUS 3.1 mg/dL (2.5-4.9); POTASSIUM 3.6 mmol/L (3.5-5.1); TOT PROT 5.8 g/dl (6.4-8.2)
--- NOTE | 2019-07-23 19:11 | PN ---
Progress Note (short form) - Note Progress Note: 84-year-old female with history of hypertension, permanent atrial fibrillation, bronchial asthma, depression, history of carcinoma of the left breast, intentional tremors was admitted with atypical chest pain. Since admission she is had no further chest painor discomfort. No history of palpitations, lightheadedness dizziness presyncope or syncope. No cough or expectoration. Patient hadundergone a Lexiscan myocardial perfusion study which was reported to be normal perfusion. No evidence of vasodilator-induced myocardial ischemia LVEF 70%. Medications: 1. Eliquis 2.5 mg by mouth twice a day. 2. Lopressor 25 mg by mouth twice a day. 3. Lasix 20 mg by mouth every other day. 4. K-Dur 20 milliequivalents by mouth daily. 5. Tylenol 650 mg by mouth every 6 hours when necessary. 6. Lidoderm patch. Next 7. BuSpar 7.5 mg by mouth twice a day. 8. Xanax 0.5 mg by mouth twice a day. 9. Ventolin inhaler 2 inhalations 4 times a day when necessary. 10. Ultram 50 mg every 6 hours when necessary. 11. [id number] mg by mouth at bedtime. O:84-year-old female was in no distress, no pallor, cyanosis, clubbing or jaundice. Vital signs:weigh 48.988 kg. blood pressure 120/68 mm of Mercury. Pulse 88 bpm and irregularly irregular. Respirations 20/min. Temperature 98.3F. Neck: Supple, no jugular venous distention, carotids were 2+, upstrokes were normal, no bruits were heard and no thyromegaly was present. Heart: PMI was in the fifth intercostal space, no heaves or thrills, S1 was variable, S2 was split. Ejection systolic murmur grade 1/6 was at the second right intercostal space. No diastolic murmur or gallops were heard. Lungs: Clear on auscultation. Abdomen: Soft, nontender, no hepatosplenomegaly or palpable masses were felt. Extremities: No calf tenderness or dependent edema, pulses were equal. Lab data: Electrolytes: Sodium 139, potassium 3.6, chloride 105, CO2 28 mmol/L. BUN 14, creatinine 0.9 mg per DL. Impression: 1. Atypical chest pain syndrome most probably musculoskeletal in origin. 2. Hypertension, hypertensive cardiovascular disease, currently normotensive. 3. Permanent atrial fibrillation with controlled ventricular response. 4. History of bronchial asthma. 5. History of depression. 6. Carcinoma of the left breast. 7. Intentional tremors. Recommendations: 1. Continue medications as outlined. 2. Outpatient follow-up with PCP. 3. If necessary patient can be sent to the office for follow-up. Guy Ghosh MD.
[2019-07-23] MEDS: ALPRAZolam 0.25 MG TABLET PO SCH (21:01)
[2019-07-23] MEDS: LIDOCAINE 5% TOPICAL PATCH TP SCH (21:03)
[2019-07-23 23:32] VITALS: BMI 17.4
[2019-07-24] MEDS ORDERED: ALPRAZolam 0.25 MG TABLET PO STA (02:17)
[2019-07-24 05:52] VITALS: PULSE 88
--- NOTE | 2019-07-24 08:41 | DS ---
Physical Examination Vital Signs: Vital Signs Temperature 98.3 F 07/24/19 02:00 Pulse Rate 88 07/24/19 05:51 Respiratory Rate 20 07/24/19 05:51 Blood Pressure 126/68 07/24/19 05:51 O2 Sat by Pulse Oximetry (%) 96 07/23/19 20:51 Findings/Remarks: Neuclear stress test Neg Constitutional: Yes: Anxious Eyes: Yes: WNL HENT: Yes: WNL Neck: Yes: WNL Cardiovascular: Yes: WNL Respiratory: Yes: WNL Gastrointestinal: Yes: WNL ...Rectal Exam: Yes: Deferred Renal/: Yes: WNL Musculoskeletal: Yes: Muscle Weakness Edema: No Neurological: Yes: Alert Psychiatric: Yes: Alert Labs: CBC, BMP 07/23/19 15:30 07/23/19 15:30 Discharge Summary Problems reviewed: Yes Reason For Visit: PRE-SYNCOPE, CHEST PAIN Current Active Problems Chest pain (Acute) Pre-syncope (Acute) Shoulder pain, right (Acute) Condition: Stable - Instructions Referrals: Pato Islas MD [Primary Care Provider] - - Home Medications Comprehensive Discharge Medication List: Ambulatory Orders Alprazolam [Xanax Xr] 0.5 mg PO BID 10/14/16 Buspirone HCl [Buspar -] 7.5 mg PO BID 10/14/16 Lidocaine 5% Patch [Lidoderm -] 1 patch TP HS 10/14/16 Metoprolol Tartrate 25 mg PO BID 02/28/19 Tramadol HCl 50 mg PO PRN 02/28/19 Apixaban [Eliquis -] 2.5 mg PO BID tablet 03/05/19 Theophylline Anhydrous [Ryder-24] 300 mg PO HS 04/28/19 Albuterol Sulfate [Proair Hfa] 2 puff IH QID PRN 05/22/19 Potassium Chloride [K-Dur -] 20 meq PO DAILY #30 tablet.er 06/03/19 Furosemide [Lasix] 20 mg PO ASDIR 07/21/19
[2019-07-24 09:49] VITALS: BP 134/84; TEMP 98
[2019-07-24] MEDS: ALPRAZolam 0.25 MG TABLET PO SCH (09:57)
[2019-07-24] MEDS: LIDOCAINE PATCH REMOVAL MC SCH (09:59)
[2019-07-24] MEDS: METOPROLOL TARTRATE 25 MG TABLET (FP) PO SCH (09:59)
[2019-07-24] MEDS: APIXABAN 2.5 MG TABLET PO SCH (09:59)
[2019-07-24] MEDS: FUROSEMIDE 20 MG TABLET (FP) PO SCH (09:59)
[2019-07-24] MEDS: POTASSIUM CHLORIDE TABS 20 MEQ TABLET.ER (FP) PO SCH (09:59)
[2019-07-24] MEDS: busPIRone HCL 5 MG TABLET PO SCH (09:59)
--- NOTE | 2019-07-24 10:13 | PN ---
Progress Note, Physician Chief Complaint: events noted chart review and alert awake no further twitching - Current Medication List Current Medications: Active Medications Acetaminophen (Tylenol -) 650 mg PO Q6H PRN PRN Reason: PAIN LEVEL 1-5 Last Admin: 07/22/19 09:29 Dose: 650 mg Albuterol Sulfate (Ventolin Hfa Inhaler -) 2 puff IH QID PRN PRN Reason: Dyspnea Alprazolam (Xanax -) 0.5 mg PO BID [facility] Last Admin: 07/24/19 09:57 Dose: Not Given Apixaban (Eliquis -) 2.5 mg PO BID [facility] Last Admin: 07/24/19 09:59 Dose: 2.5 mg Buspirone HCl (Buspar -) 7.5 mg PO BID [facility] Last Admin: 07/24/19 09:59 Dose: 7.5 mg Furosemide (Lasix -) 20 mg PO Q2D [facility] Last Admin: 07/24/19 09:59 Dose: Not Given Lidocaine (Lidoderm Patch -) 1 patch TP [facility] Last Admin: 07/23/19 21:03 Dose: 1 patch Metoprolol Tartrate (Lopressor -) 25 mg PO BID [facility] Last Admin: 07/24/19 09:59 Dose: 25 mg Miscellaneous (Lidoderm Patch Removal) 1 each MC DAILY@1000 [facility] Last Admin: 07/24/19 09:59 Dose: 1 each Potassium Chloride (K-Dur -) 20 meq PO DAILY [facility] Last Admin: 07/24/19 09:59 Dose: 20 meq Theophylline (Ryder-24) 300 mg PO [facility] Last Admin: 07/23/19 21:07 Dose: 300 mg Tramadol HCl (Ultram -) 50 mg PO Q6H PRN PRN Reason: PAIN 6-10 Last Admin: 07/23/19 21:04 Dose: 50 mg - Objective Vital Signs: Vital Signs Temperature 98 F 07/24/19 09:48 Pulse Rate 88 07/24/19 09:48 Respiratory Rate 20 07/24/19 09:48 Blood Pressure 134/84 07/24/19 09:48 O2 Sat by Pulse Oximetry (%) 96 07/23/19 20:51 Constitutional: Yes: Well Nourished Eyes: Yes: WNL HENT: Yes: WNL Neurological: Yes: Alert, Oriented, Babinski negative, Tremors ...Motor Strength: WNL Labs: CBC, BMP 07/23/19 15:30 07/23/19 15:30 INR, PTT INR 1.13 (0.83-1.09) H 07/21/19 13:35 Problem List - Problems (1) Pre-syncope Assessment/Plan: mRI of the brain is negative EEG as an outpatient Neurologically can go home Code(s): R55 - SYNCOPE AND COLLAPSE
== END 2019-07-24 11:30 | disposition home or self-care (01) ==
LOC: JER 12:29 → JERBED 14:50 → J4W 07-22 00:04
PROVIDERS: ADMIT Internal Medicine; ATTEND Internal Medicine
PROC: 3E033NZ Introduction of Analgesics, Hypnotics, Sedatives into Peripheral Vein, Percutaneous Approach (ICD-10-PCS; principal; 2019-07-21)
DX: R55 Syncope and collapse (principal); R07.89 Other chest pain; M25.511 Pain in right shoulder; R25.3 Fasciculation; I10 Essential (primary) hypertension; I11.9 Hypertensive heart disease without heart failure; I48.20 Chronic atrial fibrillation, unspecified; E78.5 Hyperlipidemia, unspecified; J45.909 Unspecified asthma, uncomplicated; M19.90 Unspecified osteoarthritis, unspecified site; C50.912 Malignant neoplasm of unspecified site of left female breast; I25.2 Old myocardial infarction; F41.9 Anxiety disorder, unspecified; F32.9 Major depressive disorder, single episode, unspecified; R29.6 Repeated falls; G89.29 Other chronic pain; Z87.891 Personal history of nicotine dependence; Z79.01 Long term (current) use of anticoagulants; Z88.2 Allergy status to sulfonamides; Z88.5 Allergy status to narcotic agent; Z88.6 Allergy status to analgesic agent; Z91.011 Allergy to milk products; Z91.013 Allergy to seafood
CPT/HCPCS: 36415; 70450-TC; 70551-TC; 71045-TC-FY; 73030-TC-RT-FY; 73060-TC-RT-FY; 78452-TC; 80053; 82550; 83735; 84100; 84484; 85025; 85610; 85730; 93005; 93010; 93017; 96374; 96375; 99284-25; A9502; G0378; J0131; J2785